=== PATIENT | male | born 1970 | race Caucasian/White ===

== ENCOUNTER 2023-08-09 16:32 | Inpatient (IN) ==
--- NOTE | 2023-08-09 17:09 | Emergency Department Note ---
Impression & Plan Hepatic cirrhosis, Abdominal ascites, Anemia, UGIB (upper gastrointestinal bleed), Thrombocytopenia, Hyperglycemia, Hypoxia ED Provider Note NAME: FRANKI CORTES AGE: 53 SEX: M : 1970 ARRIVES VIA: Walk-In INFORMANT: Patient, ED PROVIDER(S): Shawn Simmons MD CHIEF COMPLAINT: Abdominal fullness, alcohol abuse MEDICAL DECISION MAKING: Patient presented due to concern for worsening abdominal fullness and difficulty with breathing. IV was established and blood work was obtained. Reports ultrasound was performed which showed likely ascites in the right lower abdomen. Patient's blood work shows a normal white count with anemia and thrombocytopenia likely secondary to the patient's chronic alcohol use and liver dysfunction. Patient has had no stools given the patient's history of alcohol abuse was ordered PPI bolus and drip. The patient does have a bilirubin of 2.3 with a glucose of 456. Ammonia normal. AST 108. Patient's chest x-ray does not show overt pulmonary edema but is hypoxic. This may be due to abdominal fullness. I did speak with the on-call hospital service Dr. Chambers and the patient was admitted to the medicine service. Critical Care: I have personally spent 35 minutes of critical care time in direct management of this patient. This includes bedside care, interpretation of diagnostic studies, and testing, discussion with consultants, patient, and family members, and other require inpatient management activities. This 35 minutes is in excess of all separately billable procedures. Procedures: [id number] ultrasound performed by myself Indication: Evaluate ascites Verbal consent was obtained from the patient and the patient was evaluated with a curvilinear probe it did show evidence of fluid in the right lower quadrant. Impression: Ascites present Critical Care: I have personally spent 35 minutes of critical care time in direct management of this patient. This includes bedside care, interpretation of diagnostic studies, and testing, discussion with consultants, patient, and family members, and other require inpatient management activities. This 35 minutes is in excess of all separately billable procedures. Discussion w/ other healthcare providers: Dr. Chambers inpatient medicine service Prior /Outside records reviewed: I reviewed a primary care visit from August 07, 2023 from Amina shea. No history of GERD CHF fatty liver alcoholic cardiomyopathy jaundice patient was referred to [facility] [address] at that time. Reportedly patient drinks 10 to 12% of all liquor drinks per night send dark tarry stools. I reviewed an EGD from Dr. Riley from April 28, 2022. Patient did have benign- appearing esophageal stenosis which was dilated gastritis biopsied and normal examined duodenum. Differential diagnosis: Pulmonary edema, ascites, pleural effusions, pneumonia, pneumonitis, cirrhosis, hepatic dysfunction among others were considered. Diagnostics, as interpreted by me: ECG: Normal sinus rhythm, rate of 70, left axis deviation, T wave inversion lead III no ST elevations. Cardiac monitoring: An order was placed for continuous cardiac monitoring. The monitor shows a rate of 75 with sinus rhythm. Patient was placed on pulse oximetry Medical decision rules: none Imaging studies: I informally interpreted the patient's chest x-ray does not show obvious pneumonia or pneumothorax with formal report to follow. HPI: Patient presents as a referral for liver dysfunction. The patient was reportedly seen by his PCP on Thursday and was referred at that time but did not come until today. Patient does have a known history of alcohol abuse and states that he made a drink every day but does drink most days of the week typically after work and may drink a 12 pack of malt liquor 8%. Patient does have a known history of alcohol liver disease. The patient has had dark stools as well as bright red blood per rectum. He has had occasional vomiting with associated bright red blood although scant in nature. Patient does not complain of any abdominal pain at this time. He does report feeling warm and chilled but no true fever at home. Patient does not take any blood thinning medications. The patient noticed the stool to be pasty dark and tarry. Patient denies any tobacco or drug use but did get addicted to pain pills in the past and was on Suboxone many years ago. Patient does follow with [facility]. PAST MEDICAL HISTORY: See Below PAST SURGICAL HISTORY: See Below SOCIAL HISTORY: See Below HOME MEDICATIONS: See Below ALLERGIES: See Below VITALS: See Below PHYSICAL EXAMINATION: GENERAL: NAD, non-toxic. EYE EXAM: Normal conjunctiva. PERRL, no anisocoria and EOM's grossly intact w/o pain. OROPHARYNX: Moist mucus membranes, grossly normal dentition. NECK: Trachea midline, no stridor. LUNGS: Clear to auscultation. Normal chest wall mechanics. HEART: NSR, no MRG. ABDOMEN: Abdomen full, non tender, no rebound or guarding. BACK: No CVA TTP. SKIN: No rashes and no bruising. UPPER EXTREMITIES: Upper extremities are grossly normal. LOWER EXTREMITIES: Grossly normal, no edema. NEURO EXAM: A&O x3, cranial nerves II-XII grossly intact, normal speech, moves all 4 extremities. Past Med/Surg History Medical History Borderline diabetic History of atrial fibrillation History of kidney stones GERD (gastroesophageal reflux disease) Hypothyroid Low testosterone in male Infected pacemaker Pacer removed August 201805/22 infected wires History of urinary tract infection Insomnia Hypertension Congestive heart failure (CHF) HX OF Alcoholic cardiomyopathy Admitted 04/2018 for ETOH withdrawal, acute pancreatitis, non-ischmeic CM with EF 15-20%- LifeVest monitoring 07/07/18 showed a fib with RVR with tachycardia-induced tachycardia. Repeat ECHO in 07/2018 shows EF of 32%>NOW PT STATES EF IS "NORMAL" 60/NO CARDS Surgical History [place] teeth removed S/P debridement (05/30/19) Left Chest Wound Debridement Dr. Pratt 05/30/19 Hx of hernia repair Hx of cystoscopy x2 History of cardiac cath ismael - 2019/NO STENTS Family History Father Alcohol abuse Heart disease Cardiac disorder Myocardial infarction, Onset Age: 60 Brother Cancer Mother Stroke Other No family history of adverse response to anesthesia Denies family history of Colon cancer Ovarian cancer Prostate cancer Breast cancer Social History Smoking Status: Never smoker Second Hand Exposure: No; Do You Dip or Chew Tobacco: No; Hx Alcohol Use: Yes Alcohol type: hard liquor Alcohol Intake Frequency: 4 or More x per/Week Hx Substance Use: No Preferred Language: Greek Communication Ability: Effective Visual Impairment: No Limitations Hearing Ability: Normal Hand Ironer Required: No Beliefs That Will Affect Care: None marital status: Current Living Situation: Spouse current occupational status: employed How many Children do You have: 2 Feels Safe at Home: Yes Childhood Exposure to Second-Hand Smoke: Yes Diet: regular Diet Comment: regular caffeine: Yes during the past year weight has: remained stable Dental Care, Regularly: No Physical Activity Frequency: 3-4 Times per Week Seatbelt Use: always Sunscreen Use: No Assistive Devices: None Allergies Allergies Allergy/AdvReac Type Severity Reaction Status Date / Time No Known Allergies Allergy Verified 08/09/23 18:31 Home Meds Previous Rx's Medication Instructions Recorded levothyroxine 125 mcg tablet 125 mcg PO QAM #30 tabs 06/27/22 gabapentin 300 mg capsule 300 mg PO HS #30 caps 05/29/23 carvedilol 25 mg tablet (Coreg) 25 mg PO BID #180 tabs 08/05/23 lisinopril 5 mg tablet 5 mg PO QAM #30 tabs 08/05/23 blood sugar diagnostic (OneTouch #100 ea 08/12/23 Verio test strips) insulin glargine 100 unit/mL (3 15 unit (0.15 mL) subcut PM 08/12/23 mL) subcutaneous pen (Lantus diabetes #15 mL Solostar U-100 Insulin) lancets 33 gauge (OneTouch Delica #100 ea 08/12/23 Plus Lancet) pen needle, diabetic 32 gauge x #1,200 ea 08/12/23 5/32" Results & Data (ED) Vital Signs Vital Signs - 24 hr 08/09/23 16:35 08/09/23 17:16 08/09/23 17:32 Temperature 36.8 C Temperature Source Temporal Artery Scan Pulse Rate 75 69 Respiratory Rate 15 Respiratory Effort / Characteristics Non-Labored Spontaneous Respiratory Depth Normal Blood Pressure 126/78 Blood Pressure Mean 94 Pulse Oximetry 94 87 L Oxygen Delivery Method Room Air Nasal Cannula Oxygen Flow Rate 0 Sepsis Recent Fever Within 48 Hours No Sepsis New/Unexplained Change in Mental Status No Sepsis Action Taken by Nursing No Action Required Oxygen Flow Rate - Titration 2 Pulse Oximetry Post Tiitration 95 Home Medications Current Medication List: was personally reviewed by me Laboratory Data Attestation: I reviewed the patient's lab results. 08/12/23 04:50 08/12/23 04:50 Lab Results 08/09/23 08/09/23 08/09/23 Range/Units 18:36 19:15 19:40 WBC 8.90 (4.8-10.8) K/ul RBC 3.40 L (4.70-6.10) M/uL Hgb 12.1 L (14.0-18.0) g/dl Hct 34.6 L (42.0-52.0) % MCV 101.8 H (80.0-100.0) fL MCH 35.6 H (25.0-34.0) pg MCHC 35.0 (32.0-36.0) g/dL RDW Std Deviation 57.1 H (36.4-46.3) fL RDW Coeff of Uvaldo 15.3 H (11.5-14.5) % Plt Count 114 L (130-400) K/uL MPV 10.9 (9.4-12.4) fL Immature Gran % (Auto) 0.3 % Neut % (Auto) 60.5 % Lymph % (Auto) 23.3 % Gaines % (Auto) 9.6 % Eos % (Auto) 4.6 % Baso % (Auto) 1.7 % Neut # (Auto) 5.39 (1.40-6.50) K/uL Lymph # (Auto) 2.07 (1.20-3.40) K/uL Gaines # (Auto) 0.85 H (0.11-0.59) K/uL Eos # (Auto) 0.41 (0.00-0.50) K/uL Baso # (Auto) 0.15 (0.00-0.20) K/uL Immature Gran # (Auto) 0.03 (0.01-0.20) K/uL PT Cancelled INR Cancelled APTT Cancelled PTT Ratio Cancelled Sodium 135 L (136-145) mmol/L Potassium 4.3 (3.5-5.1) mmol/L Chloride 101 (98-107) mmol/L Carbon Dioxide 25 (21-32) mmol/L Anion Gap 9 (3-11) BUN 6 (6-23) mg/dl Creatinine 0.78 (0.6-1.4) mg/dl Est Cr Clr Drug Dosing 128.8 ml/min Est GFR ( Amer) 118.6 ml/min Est GFR (Non-Af Amer) 102.3 ml/min BUN/Creatinine Ratio 7.7 L (10-20) Glucose 456 H* (70-99(Fasting)) mg/dl Calcium 8.3 L (8.6-10.3) mg/dl Magnesium 1.8 (1.7-2.4) mg/dl Total Bilirubin 2.3 H (0.2-1.0) mg/dl AST 108 H (13-39) U/L ALT 36 (7-52) U/L Alkaline Phosphatase 132 H (34-104) U/L Ammonia 41.0 (18-72) umol/L Troponin I High Sens 17.0 (0-20) pg/ml Total Protein 8.4 H (6.0-8.3) gm/dl Albumin 3.3 L (3.4-5.0) gm/dl Globulin 5.1 H (2.5-4.0) gm/dl Albumin/Globulin Ratio 0.6 L (0.9-2) TSH 4.565 H (0.300-4.500) uIu/ml Free T4 0.83 (0.61-1.60) ng/dl Urine Color Yellow Urine Appearance Clear (Clear) Urine pH 6.5 (4.5-7.5) Ur Specific Gridley 1.034 H (1.000-1.030) Urine Protein Negative (Negative) Urine Glucose (UA) 3+ H (Negative) Urine Ketones Negative (Negative) Urine Blood Negative (Negative) Urine Nitrite Negative (Negative) Urine Bilirubin Negative (Negative) Urine Urobilinogen Negative (Negative) Ur Leukocyte Esterase Negative (Negative) Adenovirus (PCR) (NotDetected) B. pertussis DNA (PCR) (NotDetected) B.parapertussis DNA PCR (NotDetected) C. pneumoniae DNA (PCR) (NotDetected) Coronavirus OC43 (PCR) (NotDetected) Coronavirus HKU1 (PCR) (NotDetected) Coronavirus 229E (PCR) (NotDetected) SARS-CoV-2 (PCR) (NotDetected) Coronavirus NL63 (PCR) (NotDetected) Human Metapneumovir PCR (NotDetected) Influenza Type A (PCR) (NotDetected) Influenza Type B (PCR) (NotDetected) M. pneumoniae (PCR) (NotDetected) Parainfluenza 1 (PCR) (NotDetected) Parainfluenza 2 (PCR) (NotDetected) Parainfluenza 3 (PCR) (NotDetected) Parainfluenza 4 (PCR) (NotDetected) RSV (PCR) (NotDetected) Entero/Rhino (PCR) (NotDetected) 08/09/23 08/09/23 Range/Units 19:42 20:10 WBC (4.8-10.8) K/ul RBC (4.70-6.10) M/uL Hgb (14.0-18.0) g/dl Hct (42.0-52.0) % MCV (80.0-100.0) fL MCH (25.0-34.0) pg MCHC (32.0-36.0) g/dL RDW Std Deviation (36.4-46.3) fL RDW Coeff of Uvaldo (11.5-14.5) % Plt Count (130-400) K/uL MPV (9.4-12.4) fL Immature Gran % (Auto) % Neut % (Auto) % Lymph % (Auto) % Gaines % (Auto) % Eos % (Auto) % Baso % (Auto) % Neut # (Auto) (1.40-6.50) K/uL Lymph # (Auto) (1.20-3.40) K/uL Gaines # (Auto) (0.11-0.59) K/uL Eos # (Auto) (0.00-0.50) K/uL Baso # (Auto) (0.00-0.20) K/uL Immature Gran # (Auto) (0.01-0.20) K/uL PT 15.1 H INR 1.4 H APTT 35 H PTT Ratio 1.2 Sodium (136-145) mmol/L Potassium (3.5-5.1) mmol/L Chloride (98-107) mmol/L Carbon Dioxide (21-32) mmol/L Anion Gap (3-11) BUN (6-23) mg/dl Creatinine (0.6-1.4) mg/dl Est Cr Clr Drug Dosing ml/min Est GFR ( Amer) ml/min Est GFR (Non-Af Amer) ml/min BUN/Creatinine Ratio (10-20) Glucose (70-99(Fasting)) mg/dl Calcium (8.6-10.3) mg/dl Magnesium (1.7-2.4) mg/dl Total Bilirubin (0.2-1.0) mg/dl AST (13-39) U/L ALT (7-52) U/L Alkaline Phosphatase (34-104) U/L Ammonia (18-72) umol/L Troponin I High Sens (0-20) pg/ml Total Protein (6.0-8.3) gm/dl Albumin (3.4-5.0) gm/dl Globulin (2.5-4.0) gm/dl Albumin/Globulin Ratio (0.9-2) TSH (0.300-4.500) uIu/ml Free T4 (0.61-1.60) ng/dl Urine Color Urine Appearance (Clear) Urine pH (4.5-7.5) Ur Specific Gridley (1.000-1.030) Urine Protein (Negative) Urine Glucose (UA) (Negative) Urine Ketones (Negative) Urine Blood (Negative) Urine Nitrite (Negative) Urine Bilirubin (Negative) Urine Urobilinogen (Negative) Ur Leukocyte Esterase (Negative) Adenovirus (PCR) Not Detected (NotDetected) B. pertussis DNA (PCR) Not Detected (NotDetected) B.parapertussis DNA PCR Not Detected (NotDetected) C. pneumoniae DNA (PCR) Not Detected (NotDetected) Coronavirus OC43 (PCR) Not Detected (NotDetected) Coronavirus HKU1 (PCR) Not Detected (NotDetected) Coronavirus 229E (PCR) Not Detected (NotDetected) SARS-CoV-2 (PCR) Not Detected (NotDetected) Coronavirus NL63 (PCR) Not Detected (NotDetected) Human Metapneumovir PCR Not Detected (NotDetected) Influenza Type A (PCR) Not Detected (NotDetected) Influenza Type B (PCR) Not Detected (NotDetected) M. pneumoniae (PCR) Not Detected (NotDetected) Parainfluenza 1 (PCR) Not Detected (NotDetected) Parainfluenza 2 (PCR) Not Detected (NotDetected) Parainfluenza 3 (PCR) Not Detected (NotDetected) Parainfluenza 4 (PCR) Not Detected (NotDetected) RSV (PCR) Not Detected (NotDetected) Entero/Rhino (PCR) Not Detected (NotDetected) Administered Medications Discontinued Medications Carvedilol (Carvedilol 25 Mg Tab) 25 mg PO BID TOM Stop: 09/09/23 20:59 Last Admin: 08/12/23 07:46 Dose: 25 mg Documented By: Admin: 08/11/23 21:09 Dose: 25 mg Documented By: [id number] Admin: 08/11/23 08:22 Dose: 25 mg Documented By: Admin: 08/10/23 20:11 Dose: 25 mg Documented By: MOLLY Gabapentin (Gabapentin 300 Mg Cap) 300 mg PO HS TOM Stop: 09/09/23 20:59 Last Admin: 08/11/23 21:09 Dose: 300 mg Documented By: [id number] Admin: 08/10/23 20:12 Dose: 300 mg Documented By: MOLLY Pantoprazole Sodium 80 mg/ (Dextrose) 120 mls @ 480 mls/hr IV NOW ONE Stop: 08/09/23 18:25 Last Infusion: 08/09/23 20:53 Dose: Infused Documented By: Admin: 08/09/23 20:35 Dose: 480 mls/hr Documented By: SUBHA Pantoprazole Sodium 40 mg/ (Dextrose) 100 mls @ 20 mls/hr IV Q5H TOM Stop: 09/08/23 18:29 Last Infusion: 08/11/23 12:26 Dose: Infused Documented By: Admin: 08/11/23 12:10 Dose: 8 mg/hr, 20 mls/hr Documented By: Infusion: 08/11/23 12:10 Dose: Infused Documented By: Admin: 08/11/23 07:16 Dose: 8 mg/hr, 20 mls/hr Documented By: Infusion: 08/11/23 07:16 Dose: Infused Documented By: Admin: 08/11/23 02:24 Dose: 8 mg/hr, 20 mls/hr Documented By: Infusion: 08/11/23 02:24 Dose: Infused Documented By: Admin: 08/10/23 21:31 Dose: 8 mg/hr, 20 mls/hr Documented By: Infusion: 08/10/23 21:31 Dose: Infused Documented By: Infusion: 08/10/23 17:38 Dose: 0 mg/hr, 0 mls/hr Documented By: Admin: 08/10/23 12:55 Dose: 8 mg/hr, 20 mls/hr Documented By: Infusion: 08/10/23 12:55 Dose: Infused Documented By: Admin: 08/10/23 12:34 Dose: 8 mg/hr, 20 mls/hr Documented By: Infusion: 08/10/23 12:34 Dose: Infused Documented By: Admin: 08/10/23 08:54 Dose: 8 mg/hr, 20 mls/hr Documented By: Infusion: 08/10/23 08:04 Dose: Infused Documented By: Admin: 08/10/23 03:04 Dose: 8 mg/hr, 20 mls/hr Documented By: Infusion: 08/10/23 02:53 Dose: Infused Documented By: Infusion: 08/09/23 23:59 Dose: 8 mg/hr, 20 mls/hr Documented By: Infusion: 08/09/23 23:13 Dose: 0 mg/hr, 0 mls/hr Documented By: Admin: 08/09/23 21:06 Dose: 8 mg/hr, 20 mls/hr Documented By: ALEKSANDER Phytonadione 5 mg/ Dextrose 50.5 mls @ 101 mls/hr IV ONE ONE Stop: 08/09/23 23:14 Last Infusion: 08/10/23 00:00 Dose: Infused Documented By: Admin: 08/09/23 23:18 Dose: 101 mls/hr Documented By: MONICA Potassium Chloride/Sodium Chloride (Normal Saline W/20 Meq Kcl) 20 meq in 1,000 mls @ 80 mls/hr IV .[id number] TOM; Protocol Stop: 08/10/23 14:14 Last Infusion: 08/10/23 15:32 Dose: Infused Documented By: Admin: 08/10/23 03:00 Dose: 80 mls/hr Documented By: MOLLY Lorazepam 1 mg/ Syringe 1 mls @ 2 mls/min IV UD PRN; Protocol PRN Reason: EtOH Withdrawal AWSS Score 6,7 Stop: 09/09/23 05:58 Last Admin: 08/12/23 09:25 Dose: 2 mls/min Documented By: Admin: 08/11/23 21:36 Dose: 2 mls/min Documented By: [id number] Admin: 08/11/23 15:38 Dose: 2 mls/min Documented By: Admin: 08/10/23 21:29 Dose: 2 mls/min Documented By: Admin: 08/10/23 17:13 Dose: 2 mls/min Documented By: Admin: 08/10/23 12:34 Dose: 2 mls/min Documented By: Admin: 08/10/23 08:57 Dose: 2 mls/min Documented By: DUNG Thiamine HCl 100 mg/ Syringe 10 mls @ 2 mls/min IV QAM TOM Stop: 09/09/23 08:59 Last Admin: 08/12/23 09:25 Dose: 2 mls/min Documented By: Admin: 08/11/23 08:10 Dose: 2 mls/min Documented By: Admin: 08/10/23 08:54 Dose: 2 mls/min Documented By: DUNG Folic Acid 1 mg/ Syringe 10 mls @ 5 mls/min IV QAM TOM Stop: 09/09/23 08:59 Last Admin: 08/12/23 07:46 Dose: 5 mls/min Documented By: Admin: 08/11/23 08:10 Dose: 5 mls/min Documented By: Admin: 08/10/23 08:54 Dose: 5 mls/min Documented By: DUNG Magnesium Sulfate/Dextrose (Magnesium Sulfate / D5w) 1 gm in 100 mls @ 50 mls/hr IV Q2H TOM Stop: 08/10/23 21:44 Last Infusion: 08/10/23 21:52 Dose: Infused Documented By: Admin: 08/10/23 19:49 Dose: 50 mls/hr Documented By: Infusion: 08/10/23 19:44 Dose: Infused Documented By: Admin: 08/10/23 17:44 Dose: 50 mls/hr Documented By: DUNG Ibuprofen (Ibuprofen 200 Mg Tab) 400 mg PO NOW ONE Stop: 08/10/23 03:01 Last Admin: 08/10/23 02:59 Dose: 400 mg Documented By: MOLLY Insulin Aspart (Insulin Aspart Per Unit Charge) 0 units SC Q6 TOM Stop: 09/09/23 05:59 Last Admin: 08/10/23 12:34 Dose: 2 units Documented By: DUNG Co-signed By: SANDY Admin: 08/10/23 06:07 Dose: 3 units Documented By: MOLLY Co-signed By: LEE Insulin Aspart (Insulin Aspart Per Unit Charge) 0 units SC [facility] Stop: 09/09/23 16:29 Last Admin: 08/12/23 09:25 Dose: 3 units Documented By: GENARO Co-signed By: DOV Admin: 08/11/23 21:08 Dose: 1 units Documented By: [id number] Co-signed By: [id number] Admin: 08/11/23 18:09 Dose: 1 units Documented By: LAILA Co-signed By: PAT Admin: 08/11/23 12:57 Dose: 2 units Documented By: LAILA Co-signed By: FARHAD Admin: 08/11/23 09:04 Dose: Not Given Documented By: Admin: 08/10/23 20:12 Dose: Not Given Documented By: Admin: 08/10/23 17:49 Dose: 1 units Documented By: DUNG Co-signed By: SANDY Insulin Glargine (Lantus Per Unit Charge) 10 units SC ONE ONE Stop: 08/10/23 09:31 Last Admin: 08/10/23 09:28 Dose: 10 units Documented By: DUNG Co-signed By: SANDY Levothyroxine Sodium (Levothyroxine Sodium 125 Mcg Tablet) 125 mcg PO [facility] Stop: 09/10/23 08:59 Last Admin: 08/12/23 07:46 Dose: 125 mcg Documented By: Admin: 08/11/23 08:22 Dose: 125 mcg Documented By: LAILA Lisinopril (Lisinopril 5 Mg Tab) 5 mg PO [facility] Stop: 09/10/23 08:59 Last Admin: 08/12/23 07:46 Dose: 5 mg Documented By: Admin: 08/11/23 08:22 Dose: 5 mg Documented By: LAILA Lorazepam (Lorazepam 1 Mg Tab) 2 mg PO NOW STA Stop: 08/11/23 09:28 Last Admin: 08/11/23 09:31 Dose: 2 mg Documented By: LAILA Ondansetron HCl (Ondansetron Inj 2 Mg/Ml 2 Ml Vial) 4 mg IV Q6H PRN PRN Reason: Nausea Stop: 09/09/23 01:42 Last Admin: 08/10/23 06:34 Dose: 4 mg Documented By: LL Pantoprazole Sodium (Pantoprazole 40 Mg Tab) 40 mg PO BID TOM Stop: 09/10/23 20:59 Last Admin: 08/12/23 07:46 Dose: 40 mg Documented By: Admin: 08/11/23 21:09 Dose: 40 mg Documented By: [id number] Discharge Plan Visit Data Chief Complaint: Referred by Doctor Stated Complaint: REFERRED BY LAWANDA FOR LIVER FAILURE ED Provider: Shawn Simmons Discharge Problem: Hepatic cirrhosis, Abdominal ascites, Anemia, UGIB (upper gastrointestinal bleed), Thrombocytopenia, Hyperglycemia, Hypoxia Patient Disposition: Admitted As Inpatient Discharge Instructions Interventions: ED Discharge Assessment Last Done: 08/10/23 01:12 Discharge Problem: Hepatic cirrhosis Qualifiers: Hepatic cirrhosis type: alcoholic cirrhosis Ascites presence: with ascites Q ualified Code(s): K70.31 - Alcoholic cirrhosis of liver with ascites Abdominal ascites Qualifiers: Ascites type: due to alcoholic cirrhosis Qualified Code(s): K70.31 - Alcoholic cirrhosis of liver with ascites Anemia Qualifiers: Anemia type: unspecified type Qualified Code(s): D64.9 - Anemia, unspecified
[2023-08-09] MEDS ORDERED: PANTOPRAZOLE BOLUS/DRIP IV STA (18:11)
--- NOTE | 2023-08-09 18:53 | XRay Report ---
XR chest 1V portable CLINICAL HISTORY: weakness COMPARISON STUDY: Chest radiograph March 17, 2021. FINDINGS: Lung volumes are normal. Lungs are clear. There is no pneumothorax or pleural effusion. The re is moderate enlargement of the cardiac silhouette. Mediastinal contours are normal. There is pulmo nary vascular congestion without overt pulmonary edema. IMPRESSION: Mild enlargement of the cardiac silhouette. Pulmonary vascular congestion without overt p ulmonary edema. ACT 112: Negative or not required by law. Electronically signed by: Kody Cordova M.D. 08/09/2023 6:51 PM
[2023-08-09 18:59] LABS: Basophils # (auto) 0.15 K/uL (0.00-0.20); Basophils % (auto) 1.7 %; Eosinophils # (auto) 0.41 K/uL (0.00-0.50); Eosinophils % (auto) 4.6 %; Hematocrit (blood only) 34.6 % (42.0-52.0); Hemoglobin 12.1 g/dl (14.0-18.0); Immature Granulocytes # (auto) 0.03 K/uL (0.01-0.20); Immature Granulocytes % (auto) 0.3 %; Lymphocytes # (auto) 2.07 K/uL (1.20-3.40); Lymphocytes % (auto) 23.3 %; Mean Corpuscular Hemoglobin 35.6 pg (25.0-34.0); Mean Corpuscular Volume 101.8 fL (80.0-100.0); Mean Platelet Volume 10.9 fL (9.4-12.4); Monocytes # (auto) 0.85 K/uL (0.11-0.59); Monocytes % (auto) 9.6 %; Neutrophils # (auto) 5.39 K/uL (1.40-6.50); Neutrophils % (auto) 60.5 %; Platelet Count 114 K/uL (130-400); RDW Coefficient of Variation 15.3 % (11.5-14.5); RDW Standard Deviation 57.1 fL (36.4-46.3)
[2023-08-09 19:19] LABS: Albumin Globulin Ratio 0.6 (0.9-2); Albumin Level 3.3 gm/dl (3.4-5.0); BUN Creatinine Ratio 7.7 (10-20); Bilirubin,Total 2.3 mg/dl (0.2-1.0); Calcium 8.3 mg/dl (8.6-10.3); Creatinine Clr Calc Pharmacy 128.8 ml/min; Est GFR (African American) 118.6 ml/min; Est GFR (Non-African American) 102.3 ml/min; Globulin 5.1 gm/dl (2.5-4.0); Magnesium 1.8 mg/dl (1.7-2.4); Potassium 4.3 mmol/L (3.5-5.1); Total Protein 8.4 gm/dl (6.0-8.3)
[2023-08-09 19:25] LABS: Thyroid Stimulating Hormone 4.565 uIu/ml (0.300-4.500)
[2023-08-09 19:55] LABS: Appearance Urine Clear (Clear); Bilirubin Urine Negative (Negative); Blood Urine Negative (Negative); Color Urine Yellow; Glucose Urine UA 3+ (Negative); Ketones Urine Negative (Negative); Leukocyte Esterase Urine Negative (Negative); Nitrite Urine Negative (Negative); Protein Urine Negative (Negative); Specific Gravity Urine 1.034 (1.000-1.030); Urobilinogen Urine Negative (Negative); pH Urine 6.5 (4.5-7.5)
[2023-08-09 20:20] LABS: T4 Free Thyroxine 0.83 ng/dl (0.61-1.60)
[2023-08-09] MEDS: PANTOprazole 80 MG in DEXTROSE 5% 100 ML IV ONE (20:35)
[2023-08-09 20:47] LABS: Adenovirus PCR Not Detected (NotDetected); Bordetella parapertussis PCR Not Detected (NotDetected); Bordetella pertussis PCR Not Detected (NotDetected); Chlamydia pneumoniae PCR Not Detected (NotDetected); Coronavirus 229E PCR Not Detected (NotDetected); Coronavirus CoV-2 (COVID19)PCR Not Detected (NotDetected); Coronavirus HKU1 PCR Not Detected (NotDetected); Coronavirus NL63 PCR Not Detected (NotDetected); Coronavirus OC43PCR Not Detected (NotDetected); Human Metapneumovirus PCR Not Detected (NotDetected); Influenza A PCR Not Detected (NotDetected); Influenza B PCR Not Detected (NotDetected); Mycoplasma pneumoniae PCR Not Detected (NotDetected); Parainfluenza Virus 1 PCR Not Detected (NotDetected); Parainfluenza Virus 2 PCR Not Detected (NotDetected); Parainfluenza Virus 3 PCR Not Detected (NotDetected); Parainfluenza Virus 4 PCR Not Detected (NotDetected); Respiratory Syncytial VirusPCR Not Detected (NotDetected); Rhinovirus/Enterovirus PCR Not Detected (NotDetected)
[2023-08-09 20:54] LABS: INR 1.4 (0.9-1.1); Partial Thromboplastin Ratio 1.2; Partial Thromboplastin Time 35 Seconds (21-31); Prothrombin Time 15.1 Seconds (9.0-12.0)
[2023-08-09] MEDS: PANTOprazole 40 MG in DEXTROSE 5% MINI-B 100 ML IV SCH (21:06)
[2023-08-09] MEDS: PHYTONADIONE 5 MG in DEXTROSE 5% 50 ML IV ONE (23:18)
--- NOTE | 2023-08-10 00:01 | CT Scan Report ---
Exam(s): CT ABDOMEN + PELVIS Without Contrast EXAM: CT Abdomen and Pelvis Without Intravenous Contrast CLINICAL HISTORY: Reason for exam: abdominal distention, enlarged liver, alcohol abus. TECHNIQUE: Axial computed tomography images of the abdomen and pelvis without intravenous contrast. CTDI is 26.93 mGy and DLP is 1341.07 mGy-cm. Automated exposure control was utilized for the study. A dose lowering technique was utilized adhering to the principles of ALARA. COMPARISON: No relevant prior studies available. FINDINGS: Lung bases: Unremarkable. No mass. No consolidation. ABDOMEN: Liver: Hepatic cirrhosis. Hepatic steatosis. Mild abdominal ascites. Gallbladder and bile ducts: Unremarkable. No calcified stones. No ductal dilation. Pancreas: Unremarkable. No ductal dilation. Spleen: Unremarkable. No splenomegaly. Adrenals: Unremarkable. No mass. Kidneys and ureters: Unremarkable. No obstructing stones. No hydronephrosis. Stomach and bowel: Diverticulosis, without acute diverticulitis. No small bowel obstruction. No free intraperitoneal air. PELVIS: Appendix: Normal appendix. Bladder: Unremarkable. No stones. Reproductive: Unremarkable as visualized. ABDOMEN and PELVIS: Intraperitoneal space: See above. Bones/joints: Degenerative changes of the spine. No acute fracture. No dislocation. Soft tissues: Unremarkable. Vasculature: Atherosclerotic changes of the aorta. No abdominal aortic aneurysm. Lymph nodes: Unremarkable. No enlarged lymph nodes. IMPRESSION: 1. Hepatic cirrhosis. Hepatic steatosis. Mild abdominal ascites. 2. Diverticulosis, without acute diverticulitis. No small bowel obstruction. No free intraperitoneal air. Electronically signed by: Jayro Thompson MD 08/10/23 00:00 AM
[2023-08-10] MEDS ORDERED: GLUCOSE 10 TAB/TUBE PO PRN (01:17)
[2023-08-10] MEDS ORDERED: CARBOHYDRATES FOR HYPOGLYCEMIA PO PRN (01:17)
[2023-08-10] MEDS ORDERED: GLUCOSE 40% GEL 15 GM TUBE PO PRN (01:17)
[2023-08-10] MEDS ORDERED: DEXTROSE 50% 50 ML SYRINGE IV PRN (01:17)
[2023-08-10] MEDS ORDERED: GLUCAGON FOR INJ 1 MG VIAL SQ PRN (01:17)
[2023-08-10] MEDS: IBUPROFEN 200 MG TAB PO ONE (02:59)
[2023-08-10] MEDS: NSS + 20MEQ KCL 20 MEQ/1,000 ML BAG IV SCH (03:00)
--- NOTE | 2023-08-10 04:21 | History & Physical Report ---
Date of Service August 10, 2023 Assessment & Plan (1) GERD (gastroesophageal reflux disease): (2) Esophageal dysphagia: (3) Primary hypogonadism in male: (4) Fatty liver, alcoholic: (5) Alcoholic cardiomyopathy: (6) Hypertension: (7) Hypothyroid: (8) Hepatic cirrhosis: (9) Abdominal ascites: (10) History of atrial fibrillation: (11) GI bleed: (12) Anemia: Plan GI bleed/anemia- Patient with noted dark stools, likely upper GI source Hemoglobin 12.1 on admission, with base 14-15 Continue Protonix bolus/drip begun in the ED NPO Most recent EGD performed 04/28/[address] Alfonso Riley with benign-appearing esophageal stenosis that was dilated, otherwise gastritis, and normal examination to duodenum Consult GI DrEufemia Riley Follow serial laboratories Give vitamin K 5 mg IV to reverse mild coagulopathy with INR 1.4, and follow serially Alcohol abuse- Alcohol level added to ED labs, 242.7 Placed on AWSS protocol with IV Ativan Thiamine 100 mg IV every morning Folic acid 1 mg IV every morning NSS + KCl 20 mill equivalents at 80 MLS per hour Hypertension- Hold carvedilol and lisinopril, with normal heart rate and blood pressure at this time Liver cirrhosis/alcoholic fatty liver/mild abdominal ascites- AST 108, total bilirubin 2.3 Secondary to alcohol use Alcohol cessation counseling Follow examinations serially Coagulopathy- INR 1.4 Give vitamin K 5 mg IV due to current GI bleeding Hyperglycemia- Glucose 456 on admission labs, with follow-up fingerstick 297 Placed on Accu-Cheks with NovoLog SSI Check hemoglobin A1c Reported history of prediabetes and metabolic syndrome Hypothyroidism- Temporarily hold levothyroxine Admission and Anticipated Discharge Date Admission Date: August 09, 2023 History of Present Illness Chief Complaint: The patient reports that he had been seen by his outpatient provider 2 days ago, was told that he had enlarged liver, and was referred to the ED, and has showed up today 2 days later Primary Care Provider: BEHZAD Salazar The patient is a 53-year-old male with a past medical history including GERD, esophageal dysphagia, esophageal stenoses, primary hypogonadism, ED, metabolic syndrome, prediabetes, hyperlipidemia, alcoholic fatty liver, hypertension, CHF, alcoholic cardiomyopathy and alcoholism. He presents to the emergency department as a referral from his outpatient provider, whom referred him into the ED 2 days ago when he was seen there, but has shown up today for evaluation. He has no particular complaints today, reporting that he does drink alcohol daily, but not all day long. He did report that his stools have been more dark recently, and was a started on a Protonix bolus followed by drip by the ED. Allergies Allergy/AdvReac Type Severity Reaction Status Date / Time No Known Allergies Allergy Verified 08/09/23 18:31 Home Medications Medication Instructions Recorded Confirmed Type levothyroxine 125 mcg tablet 125 mcg PO QAM #30 tabs 06/27/22 08/09/23 Rx gabapentin 300 mg capsule 300 mg PO HS #30 caps 05/29/23 08/09/23 Rx carvedilol 25 mg tablet (Coreg) 25 mg PO BID #180 tabs 08/05/23 08/09/23 Rx lisinopril 5 mg tablet 5 mg PO QAM #30 tabs 08/05/23 08/09/23 Rx Past Med/Surg History Medical History (Updated 08/10/23 @ 05:55 by Ovidio Trinidad MD) Borderline diabetic History of atrial fibrillation History of kidney stones GERD (gastroesophageal reflux disease) Hypothyroid Low testosterone in male Infected pacemaker Pacer removed August 20182 infected wires History of urinary tract infection Insomnia Hypertension Congestive heart failure (CHF) HX OF Alcoholic cardiomyopathy Admitted 04/2018 for ETOH withdrawal, acute pancreatitis, non-ischmeic CM with EF 15-20%- LifeVest monitoring 07/07/18 showed a fib with RVR with tachycardia-induced tachycardia. Repeat ECHO in 07/2018 shows EF of 32%>NOW PT STATES EF IS "NORMAL" 60/NO CARDS Surgical History [place] teeth removed S/P debridement (05/30/19) Left Chest Wound Debridement Dr. Pratt 05/30/19 Hx of hernia repair Hx of cystoscopy x2 History of cardiac cath ismael - 2019/NO STENTS Family History Father Alcohol abuse Heart disease Cardiac disorder Myocardial infarction, Onset Age: 60 Brother Cancer Mother Stroke Other No family history of adverse response to anesthesia Denies family history of Colon cancer Ovarian cancer Prostate cancer Breast cancer Social History Smoking Status: Never smoker Second Hand Exposure: No; Do You Dip or Chew Tobacco: No; Hx Alcohol Use: Yes Alcohol type: hard liquor Alcohol Intake Frequency: 4 or Mo re x per/Week Hx Substance Use: No Preferred Language: Hungarian Communication Ability: Effective Visual Impairment: No Limitations Hearing Ability: Normal Rabble Furnace Tender Required: No Beliefs That Will Affect Care: None marital status: Current Living Situation: Spouse current occupational status: employed How many Children do You have: 2 Other Information That Helps Us Care for You: No Feels Safe at Home: Yes Safety Concerns: Feels Safe At This Time Childhood Exposure to Second-Hand Smoke: Yes Diet: regular Diet Comment: regular caffeine: Yes during the past year weight has: remained stable Dental Care, Regularly: No Physical Activity Frequency: 3-4 Times per Week Seatbelt Use: always Sunscreen Use: No Assistive Devices: Glasses Review of Systems Review of Systems: The patient denies chest pain, palpitations, shortness of breath, dyspnea on exertion, cough, lower extremity swelling, sore throat, fevers, chills, sweats, weight change, fatigue, nausea, vomiting, diarrhea , constipation, abdominal pain, pelvic pain, blood in urine, dysuria, urinary frequency or urgency, lightheadedness, dizziness, headache, memory loss, loss of consciousness, rash, imbalance, focal or generalized weakness, numbness or tingling in arms or legs, generalized arthralgias or myalgias, back or neck pain, or night sweats. The review of systems is otherwise negative other than for that already noted above, and at least 10 systems have been reviewed. Physical Exam Physical Exam: The patient is awake, alert and oriented 3, well developed and well nourished, normocephalic and atraumatic, lying in bed and in no acute distress. HEENT--PERRL, EOMI, mucous membranes and oropharynx normal Neck--supple. No JVD. No bruits. Thyroid normal, trachea midline, no adenopathy. Heart--normal S1 and S2. No murmurs, rubs or gallops. Lungs--clear bilaterally, no respiratory distress, no accessory muscle use. Abdomen--normal bowel sounds and soft. Nontender. Nondistended. Obese Extremities--No edema. Dermatologic--normal skin turgor, normal color, no abnormal lymph nodes, no rash. Neurologic--cranial nerves II through XII grossly intact. Rheumatologic--normal range of motion. Psychiatric--normal affect. Results & Data Results & Data Vital Signs (Past 12 Hours) Vital Signs Temp Pulse Pulse Resp BP BP Pulse Ox 08/10/23 01:56 73 08/10/23 01:56 08/10/23 01:56 36.6 C 69 18 135/78 96 08/10/23 00:20 68 22 107/63 97 08/10/23 00:11 82 18 96 08/09/23 23:46 96 08/09/23 22:30 76 16 08/09/23 22:00 78 23 97/58 L 93 08/09/23 21:32 69 08/09/23 21:20 81 24 96 08/09/23 21:04 72 18 125/80 97 08/09/23 21:00 84 14 08/09/23 19:45 68 15 105/56 L 91 08/09/23 19:01 85 18 136/95 08/09/23 17:32 69 08/09/23 17:16 87 L 08/09/23 16:35 36.8 C 75 15 126/78 94 O2 Del Method O2 Flow Rate 08/10/23 01:56 08/10/23 01:56 Nasal Cannula 2 08/10/23 01:56 Nasal Cannula 2 08/10/23 00:20 08/10/23 00:11 08/09/23 23:46 Room Air 08/09/23 22:30 08/09/23 22:00 Nasal Cannula 2 08/09/23 21:32 08/09/23 21:20 Nasal Cannula 2 08/09/23 21:04 Nasal Cannula 2 08/09/23 21:00 08/09/23 19:45 Room Air 08/09/23 19:01 08/09/23 17:32 08/09/23 17:16 Nasal Cannula 0 08/09/23 16:35 Room Air Laboratory Results Laboratory Results WBC 8.90 K/ul (4.8-10.8) 08/09/23 18:36 RBC 3.40 M/uL (4.70-6.10) L 08/09/23 18:36 Hgb 12.1 g/dl (14.0-18.0) L 08/09/23 18:36 Hct 34.6 % (42.0-52.0) L 08/09/23 18:36 MCV 101.8 fL (80.0-100.0) H 08/09/23 18:36 MCH 35.6 pg (25.0-34.0) H 08/09/23 18:36 MCHC 35.0 g/dL (32.0-36.0) 08/09/23 18:36 RDW Std Deviation 57.1 fL (36.4-46.3) H 08/09/23 18:36 RDW Coeff of Uval[place] 15.3 % (11.5-14.5) H 08/09/23 18:36 Plt Count 114 K/uL (130-400) L 08/09/23 18:36 MPV 10.9 fL (9.4-12.4) 08/09/23 18:36 Immature Gran % (Auto) 0.3 % 08/09/23 18:36 Neut % (Auto) 60.5 % 08/09/23 18:36 Lymph % (Auto) 23.3 % 08/09/23 18:36 [place] % (Auto) 9.6 % 08/09/23 18:36 Eos % (Auto) 4.6 % 08/09/23 18:36 Baso % (Auto) 1.7 % 08/09/23 18:36 Neut # (Auto) 5.39 K/uL (1.40-6.50) 08/09/23 18:36 Lymph # (Auto) 2.07 K/uL (1.20-3.40) 08/09/23 18:36 [place] # (Auto) 0.85 K/uL (0.11-0.59) H 08/09/23 18:36 Eos # (Auto) 0.41 K/uL (0.00-0.50) 08/09/23 18:36 Baso # (Auto) 0.15 K/uL (0.00-0.20) 08/09/23 18:36 Immature Gran # (Auto) 0.03 K/uL (0.01-0.20) 08/09/23 18:36 PT 15.1 Seconds (9.0-12.0) H 08/09/23 20:10 INR 1.4 (0.9-1.1) H 08/09/23 20:10 APTT 35 Seconds (21-31) H 08/09/23 20:10 PTT Ratio 1.2 08/09/23 20:10 Sodium 135 mmol/L (136-145) L 08/09/23 18:36 Potassium 4.3 mmol/L (3.5-5.1) 08/09/23 18:36 Chloride 101 mmol/L (98-107) 08/09/23 18:36 Carbon Dioxide 25 mmol/L (21-32) 08/09/23 18:36 Anion Gap 9 (3-11) 08/09/23 18:36 BUN 6 mg/dl (6-23) 08/09/23 18:36 Creatinine 0.78 mg/dl (0.6-1.4) 08/09/23 18:36 Est Cr Clr Drug Dosing 128.8 ml/min 08/09/23 18:36 Est GFR ( Amer) 118.6 ml/min 08/09/23 18:36 Est GFR (Non-Af Amer) 102.3 ml/min 08/09/23 18:36 BUN/Creatinine Ratio 7.7 (10-20) L 08/09/23 18:36 Glucose 456 mg/dl (70-99(Fasting)) H* 08/09/23 18:36 POC Glucose 302 mg/dl (70-99) H* 08/10/23 00:20 Calcium 8.3 mg/dl (8.6-10.3) L 08/09/23 18:36 Magnesium 1.8 mg/dl (1.7-2.4) 08/09/23 18:36 Total Bilirubin 2.3 mg/dl (0.2-1.0) H 08/09/23 18:36 AST 108 U/L (13-39) H 08/09/23 18:36 ALT 36 U/L (7-52) 08/09/23 18:36 Alkaline Phosphatase 132 U/L (34-104) H 08/09/23 18:36 Ammonia 41.0 umol/L (18-72) 08/09/23 19:15 Troponin I High Sens 17.0 pg/ml (0-20) 08/09/23 18:36 Total Protein 8.4 gm/dl (6.0-8.3) H 08/09/23 18:36 Albumin 3.3 gm/dl (3.4-5.0) L 08/09/23 18:36 Globulin 5.1 gm/dl (2.5-4.0) H 08/09/23 18:36 Albumin/Globulin Ratio 0.6 (0.9-2) L 08/09/23 18:36 TSH 4.565 uIu/ml (0.300-4.500) H 08/09/23 18:36 Free T4 0.83 ng/dl (0.61-1.60) 08/09/23 18:36 Urine Color Yellow 08/09/23 19:40 Urine Appearance Clear (Clear) 08/09/23 19:40 Urine pH 6.5 (4.5-7.5) 08/09/23 19:40 Ur Specific [place] 1.034 (1.000-1.030) H 08/09/23 19:40 Urine Protein Negative (Negative) 08/09/23 19:40 Urine Glucose (UA) 3+ (Negative) H 08/09/23 19:40 Urine Ketones Negative (Negative) 08/09/23 19:40 Urine Blood Negative (Negative) 08/09/23 19:40 Urine Nitrite Negative (Negative) 08/09/23 19:40 Urine Bilirubin Negative (Negative) 08/09/23 19:40 Urine Urobilinogen Negative (Negative) 08/09/23 19:40 Ur Leukocyte Esterase Negative (Negative) 08/09/23 19:40 Ethyl Alcohol mg/dL 242.7 mg/dl (<10.0) H 08/09/23 22:35 Adenovirus (PCR) Not Detected (NotDetected) 08/09/23 19:42 B. pertussis DNA (PCR) Not Detected (NotDetected) 08/09/23 19:42 B.parapertussis DNA PCR Not Detected (NotDetected) 08/09/23 19:42 C. pneumoniae DNA (PCR) Not Detected (NotDetected) 08/09/23 19:42 Coronavirus OC43 (PCR) Not Detected (NotDetected) 08/09/23 19:42 Coronavirus HKU1 (PCR) Not Detected (NotDetected) 08/09/23 19:42 Coronavirus 229E (PCR) Not Detected (NotDetected) 08/09/23 19:42 SARS-CoV-2 (PCR) Not Detected (NotDetected) 08/09/23 19:42 Coronavirus NL63 (PCR) Not Detected (NotDetected) 08/09/23 19:42 Human Metapneumovir PCR Not Detected (NotDetected) 08/09/23 19:42 Influenza Type A (PCR) Not Detected (NotDetected) 08/09/23 19:42 Influenza Type B (PCR) Not Detected (NotDetected) 08/09/23 19:42 M. pneumoniae (PCR) Not Detected (NotDetected) 08/09/23 19:42 Parainfluenza 1 (PCR) Not Detected (NotDetected) 08/09/23 19:42 Parainfluenza 2 (PCR) Not Detected (NotDetected) 08/09/23 19:42 Parainfluenza 3 (PCR) Not Detected (NotDetected) 08/09/23 19:42 Parainfluenza 4 (PCR) Not Detected (NotDetected) 08/09/23 19:42 RSV (PCR) Not Detected (NotDetected) 08/09/23 19:42 Entero/Rhino (PCR) Not Detected (NotDetected) 08/09/23 19:42 Impressions Chest X-Ray 08/09/23 17:37 XR chest 1V portable CLINICAL HISTORY: weakness COMPARISON STUDY: Chest radiograph March 17, 2021. FINDINGS: Lung volumes are normal. Lungs are clear. There is no pneumothorax or pleural effusion. There is moderate enlargement of the cardiac silhouette. Mediastinal contours are normal. There is pulmonary vascular congestion without overt pulmonary edema. IMPRESSION: Mild enlargement of the cardiac silhouette. Pulmonary vascular congestion without overt pulmonary edema. ACT 112: Negative or not required by law. Electronically signed by: Kody Cordova M.D. 08/09/2023 6:51 PM Abdomen/Pelvis CT 08/09/23 22:15 Exam(s): CT ABDOMEN + PELVIS Without Contrast EXAM: CT Abdomen and Pelvis Without Intravenous Contrast CLINICAL HISTORY: Reason for exam: abdominal distention, enlarged liver, alcohol abus. TECHNIQUE: Axial computed tomography images of the abdomen and pelvis without intravenous contrast. CTDI is 26.93 mGy and DLP is 1341.07 mGy-cm. Automated exposure control was utilized for the study. A dose lowering technique was utilized adhering to the principles of ALARA. COMPARISON: No relevant prior studies available. FINDINGS: Lung bases: Unremarkable. No mass. No consolidation. ABDOMEN: Liver: Hepatic cirrhosis. Hepatic steatosis. Mild abdominal ascites. Gallbladder and bile ducts: Unremarkable. No calcified stones. No ductal dilation. Pancreas: Unremarkable. No ductal dilation. Spleen: Unremarkable. No splenomegaly. Adrenals: Unremarkable. No mass. Kidneys and ureters: Unremarkable. No obstructing stones. No hydronephrosis. Stomach and bowel: Diverticulosis, without acute diverticulitis. No small bowel obstruction. No free intraperitoneal air. PELVIS: Appendix: Normal appendix. Bladder: Unremarkable. No stones. Reproductive: Unremarkable as visualized. ABDOMEN and PELVIS: Intraperitoneal space: See above. Bones/joints: Degenerative changes of the spine. No acute fracture. No dislocation. Soft tissues: Unremarkable. Vasculature: Atherosclerotic changes of the aorta. No abdominal aortic aneurysm. Lymph nodes: Unremarkable. No enlarged lymph nodes. IMPRESSION: 1. Hepatic cirrhosis. Hepatic steatosis. Mild abdominal ascites. 2. Diverticulosis, without acute diverticulitis. No small bowel obstruction. No free intraperitoneal air. Electronically signed by: Jayro Thompson MD 08/10/23 00:00 AM Code Status & VTE Plan Code Status Full code VTE Prophylaxis Plan VTE Prophylaxis will be ordered: Yes PG Care Time/CCT Total # of Minutes Spent Total Time Spent with Patient: Total time spent is greater than 50% in coordination of care (as documented) at patient's floor/unit and/or counseling patient: Coding Level of Care Code 97690 INT INP/OBS CARE 3/75MIN Diagnoses GERD (gastroesophageal reflux disease) K21.9 Esophageal dysphagia R13.19 Primary hypogonadism in male E29.1 Fatty liver, alcoholic K70.0 Alcoholic cardiomyopathy I42.6 Hypertension I10 Hypothyroid E03.9 Hepatic cirrhosis K74.60 Abdominal ascites R18.8 History of atrial fibrillation Z86.79 GI bleed K92.2 Anemia D64.9
[2023-08-10] MEDS ORDERED: LORazepam 2 MG in SYRINGE 1 ML IV PRN (05:59)
[2023-08-10] MEDS ORDERED: LORazepam 3 MG in SYRINGE 1.5 ML IV PRN (05:59)
[2023-08-10] MEDS ORDERED: Ativan IV Alcohol Withdrawal--Active Protocol IV PRN (05:59)
[2023-08-10] MEDS: INSULIN ASPART PER UNIT CHARGE SC SCH ×2 (06:07→17:49)
[2023-08-10] MEDS: ONDANSETRON INJ 2 MG/ML 2 ML VIAL IV PRN (06:34)
[2023-08-10 06:48] LABS: Albumin Globulin Ratio 0.7 (0.9-2); BUN Creatinine Ratio 6.9 (10-20); Bilirubin,Total 2.2 mg/dl (0.2-1.0); Creatinine Clr Calc Pharmacy 139.1 ml/min; Est GFR (African American) 122.6 ml/min; Est GFR (Non-African American) 105.8 ml/min; Globulin 4.5 gm/dl (2.5-4.0); Magnesium 1.6 mg/dl (1.7-2.4); Potassium 3.7 mmol/L (3.5-5.1); Total Protein 7.5 gm/dl (6.0-8.3)
[2023-08-10 06:50] LABS: Basophils # (auto) 0.12 K/uL (0.00-0.20); Basophils % (auto) 1.8 %; Eosinophils # (auto) 0.37 K/uL (0.00-0.50); Eosinophils % (auto) 5.4 %; Hemoglobin 11.4 g/dl (14.0-18.0); Immature Granulocytes # (auto) 0.02 K/uL (0.01-0.20); Immature Granulocytes % (auto) 0.3 %; Lymphocytes # (auto) 1.46 K/uL (1.20-3.40); Lymphocytes % (auto) 21.5 %; Mean Corpuscular Hemoglobin 34.4 pg (25.0-34.0); Mean Corpuscular Hgb Conc 33.5 g/dL (32.0-36.0); Mean Corpuscular Volume 102.7 fL (80.0-100.0); Mean Platelet Volume 10.7 fL (9.4-12.4); Monocytes # (auto) 0.69 K/uL (0.11-0.59); Monocytes % (auto) 10.1 %; Neutrophils # (auto) 4.14 K/uL (1.40-6.50); Neutrophils % (auto) 60.9 %; Platelet Count 102 K/uL (130-400); RDW Coefficient of Variation 15.4 % (11.5-14.5); RDW Standard Deviation 58.1 fL (36.4-46.3); Red Blood Count 3.31 M/uL (4.70-6.10)
[2023-08-10 07:47] LABS: Estimated Average Glucose 249 mg/dl; Hemoglobin A1C 10.3 % (4.5-5.6)
[2023-08-10] MEDS: FOLIC ACID 1 MG in SYRINGE 9.8 ML IV SCH (08:54)
[2023-08-10] MEDS: THIAMINE HCL 100 MG in SYRINGE 9 ML IV SCH (08:54)
[2023-08-10] MEDS: LORazepam 1 MG in SYRINGE 0.5 ML IV PRN (08:57)
[2023-08-10] MEDS: LANTUS PER UNIT CHARGE SC ONE (09:28)
--- NOTE | 2023-08-10 10:29 | Gastrointestinal Consultation ---
Date of Consultation August 10, 2023 Assessment & Plan (1) Anemia: -Continue to monitor H/H. -Consider anemia laboratory work-up as patient has a history of alcohol abuse. -Continue IV Protonix; patient was not taking Protonix 40 mg BID as previously recommended after his last EGD. No evidence of varices on last EGD and no evidence of portal hypertension on CT scan. No clinical concern for variceal bleed at present either. -Continue conservative management and can consider intervention if clinical condition worsens. Supervising Physician Co-Signing Physician Notes Agree with PEGGY Lott as above Interviewed and examined patient and agree with above Abd: Soft, NT, ND, +BS Continue current therapy and supportive care Patient was not taking PPI at home, and will need to continue this as outpatient Patient complained of early satiety, clearly has Diabetes based on presentation and HgbA1c, and will need outpatient therapy with tighter glucose control Consider Gastric emptying study as outpatient. History of Present Illness Reason for Consultation: GI bleed Attending Physician: Zack Gold MD History of Present Illness Patient is a 53 yo male with PMH of GERD, esophageal dysphagia, esophageal stenoses, primary hypogonadism, ED, metabolic syndrome, prediabetes, HLD, alcoholic fatty liver, HTN, CHF, alcoholic cardiomyopathy, & alcoholism. The patient was reportedly sent to the hospital by his outpatient PCP but he did not present at that time, instead waiting 2 days. Patient has a history of alcohol abuse. GI has been consulted for concerns of GI bleeding. The patient had a CT on 08/09/23 with findings of hepatic steatosis & cirrhosis along with mild abdominal ascites. He has a history of silent GERD with his last EGD in April 2022 showing esophageal stenosis. He is not compliant with PPIs at home and notes that several days ago he began seeing dark stools. H/H 11.0/32.0. He denies abdominal pain. He is presently on IV Protonix. T bili is 2.2, INR 1.4, AST 93, ALT 33. No overt GI bleeding since admission. No pertinent family history. Allergies Allergy/AdvReac Type Severity Reaction Status Date / Time No Known Allergies Allergy Verified 08/09/23 18:31 Home Medications Medication Instructions Recorded Confirmed Type levothyroxine 125 mcg tablet 125 mcg PO QAM #30 tabs 06/27/22 08/09/23 Rx gabapentin 300 mg capsule 300 mg PO HS #30 caps 05/29/23 08/09/23 Rx carvedilol 25 mg tablet (Coreg) 25 mg PO BID #180 tabs 08/05/23 08/09/23 Rx lisinopril 5 mg tablet 5 mg PO QAM #30 tabs 08/05/23 08/09/23 Rx Patient History Medical History Borderline diabetic History of atrial fibrillation History of kidney stones GERD (gastroesophageal reflux disease) Hypothyroid Low testosterone in male Infected pacemaker Pacer removed August 201805/22 infected wires History of urinary tract infection Insomnia Hypertension Congestive heart failure (CHF) HX OF Alcoholic cardiomyopathy Admitted 04/2018 for ETOH withdrawal, acute pancreatitis, non-ischmeic CM wi th EF 15-20%- LifeVest monitoring 07/07/18 showed a fib with RVR with tachycardia-induced tachycardia. Repeat ECHO in 07/2018 shows EF of 32%>NOW PT STATES EF IS "NORMAL" 60/NO CARDS Surgical History [place] teeth removed S/P debridement (05/30/19) Left Chest Wound Debridement Dr. Pratt 05/30/19 Hx of hernia repair Hx of cystoscopy x2 History of cardiac cath ismael - 2019/NO STENTS Family History Father Alcohol abuse Heart disease Cardiac disorder Myocardial infarction, Onset Age: 60 Brother Cancer Mother Stroke Other No family history of adverse response to anesthesia Denies family history of Colon cancer Ovarian cancer Prostate cancer Breast cancer Social History Smoking Status: Never smoker Second Hand Exposure: No; Do You Dip or Chew Tobacco: No; Hx Alcohol Use: Yes Alcohol type: hard liquor Alcohol Intake Frequency: 4 or More x per/Week Hx Substance Use: No Preferred Language: Belarusian Communication Ability: Effective Visual Impairment: No Limitations Hearing Ability: Normal Dyer Helper Required: No Beliefs That Will Affect Care: None marital status: Current Living Situation: Spouse current occupational status: employed How many Children do You have: 2 Other Information That Helps Us Care for You: No Feels Safe at Home: Yes Safety Concerns: Feels Safe At This Time Childhood Exposure to Second-Hand Smoke: Yes Diet: regular Diet Comment: regular caffeine: Yes during the past year weight has: remained stable Dental Care, Regularly: No Physical Activity Frequency: 3-4 Times per Week Seatbelt Use: always Sunscreen Use: No Assistive Devices: None Review of Systems Constitutional: no fever and no chills Respiratory: no cough and no dyspnea Cardiovascular: no chest pain Gastrointestinal: no abdominal pain Psychiatric: + substance abuse Physical Exam Constitutional: well developed Respiratory: normal respiratory effort Cardiovascular: Rate/Rhythm: regular rate Gastrointestinal (Abdomen): Inspection/Auscultation: normal bowel sounds Psychiatric: Orientation: alert and oriented x 3 Results & Data Vital Signs (Past 12 Hours) Vital Signs Temp Pulse Pulse Resp BP BP BP 08/10/23 08:16 36.8 C 75 18 135/67 08/10/23 07:55 78 08/10/23 06:12 08/10/23 01:56 73 08/10/23 01:56 08/10/23 01:56 36.6 C 69 18 135/78 08/10/23 00:20 68 22 107/63 08/10/23 00:11 82 18 08/09/23 23:46 08/09/23 22:30 76 16 Pulse Ox O2 Del Method O2 Flow Rate 08/10/23 08:16 96 Room Air 08/10/23 07:55 08/10/23 06:12 94 Room Air 08/10/23 01:56 08/10/23 01:56 Nasal Cannula 2 08/10/23 01:56 96 Nasal Cannula 2 08/10/23 00:20 97 08/10/23 00:11 96 08/09/23 23:46 96 Room Air 08/09/23 22:30 PG Care Time/CCT Total # of Minutes Spent Total Time Spent with Patient: Total time spent is greater than 50% in coordination of care (as documented) at patient's floor/unit and/or counseling patient: Coding Level of Care Code 19868 IN/OBS CONSULT LVL 4,60M Diagnoses Anemia D64.9
--- NOTE | 2023-08-10 10:47 | Electrocardiogram Report ---
Test Reason : Blood Pressure : / mmHG Vent. Rate : 070 BPM Atrial Rate : 070 BPM P-R Int : 186 ms QRS Dur : 110 ms QT Int : 450 ms P-R-T Axes : 054 -41 017 degrees QTc Int : 486 ms Normal sinus rhythm Left axis deviation Incomplete right bundle branch block Minimal voltage criteria for LVH, may be normal variant ( R in aVL ) Septal infarct , age undetermined Abnormal ECG When compared with ECG of 27-NOV-2019 16:24, Incomplete right bundle branch block is now Present Septal infarct is now Present Confirmed by Francisco J Carballo ([id number]) on 08/10/2023 10:47:14 AM Referred By: REFERRED SELF Confirmed By:Francisco J Carballo
[2023-08-10] MEDS ORDERED: Nursing to Pharmacy Communication SCH (12:45)
[2023-08-10 16:58] LABS: Hematocrit (blood only) 33.7 % (42.0-52.0); Hemoglobin 11.2 g/dl (14.0-18.0)
[2023-08-10] MEDS: MAGNESIUM SULFATE / D5W 1 GM/100 ML BAG IV SCH (17:44)
[2023-08-10] MEDS: carvediloL 25 MG TAB PO SCH (20:11)
[2023-08-10] MEDS: GABAPENTIN 300 MG CAP PO SCH (20:12)
[2023-08-10 22:47] LABS: Hemoglobin 11.5 g/dl (14.0-18.0)
[2023-08-11 06:22] LABS: Basophils # (auto) 0.06 K/uL (0.00-0.20); Basophils % (auto) 1.1 %; Eosinophils # (auto) 0.23 K/uL (0.00-0.50); Eosinophils % (auto) 4.2 %; Hematocrit (blood only) 34.7 % (42.0-52.0); Hemoglobin 11.4 g/dl (14.0-18.0); Immature Granulocytes # (auto) 0.02 K/uL (0.01-0.20); Immature Granulocytes % (auto) 0.4 %; Lymphocytes # (auto) 1.09 K/uL (1.20-3.40); Lymphocytes % (auto) 19.9 %; Mean Corpuscular Hemoglobin 34.3 pg (25.0-34.0); Mean Corpuscular Hgb Conc 32.9 g/dL (32.0-36.0); Mean Corpuscular Volume 104.5 fL (80.0-100.0); Mean Platelet Volume 10.3 fL (9.4-12.4); Monocytes # (auto) 0.53 K/uL (0.11-0.59); Monocytes % (auto) 9.7 %; Neutrophils # (auto) 3.56 K/uL (1.40-6.50); Neutrophils % (auto) 64.7 %; Platelet Count 78 K/uL (130-400); RDW Coefficient of Variation 15.4 % (11.5-14.5); Red Blood Count 3.32 M/uL (4.70-6.10); White Blood Count 5.49 K/ul (4.8-10.8)
[2023-08-11 06:30] LABS: Albumin Globulin Ratio 0.7 (0.9-2); Albumin Level 2.8 gm/dl (3.4-5.0); BUN Creatinine Ratio 9.4 (10-20); Bilirubin,Total 4.2 mg/dl (0.2-1.0); Calcium 7.9 mg/dl (8.6-10.3); Creatinine Clr Calc Pharmacy 119.2 ml/min; Est GFR (African American) 114.5 ml/min; Est GFR (Non-African American) 98.8 ml/min; Globulin 4.3 gm/dl (2.5-4.0); Magnesium 1.8 mg/dl (1.7-2.4); Potassium 3.9 mmol/L (3.5-5.1); Total Protein 7.1 gm/dl (6.0-8.3)
[2023-08-11] MEDS: LEVOTHYROXINE SODIUM 125 MCG TABLET PO SCH (08:22)
[2023-08-11] MEDS: lisinopril 5 MG TAB PO SCH (08:22)
[2023-08-11] MEDS: LORazepam 1 MG TAB PO STA (09:31)
--- NOTE | 2023-08-11 12:17 | Hospitalist Progress Note ---
Date of Service August 11, 2023 Assessment & Plan (1) GERD (gastroesophageal reflux disease): (2) Esophageal dysphagia: (3) Primary hypogonadism in male: (4) Fatty liver, alcoholic: (5) Alcoholic cardiomyopathy: (6) Hypertension: (7) Hypothyroid: (8) Hepatic cirrhosis: (9) Abdominal ascites: (10) History of atrial fibrillation: (11) GI bleed: (12) Anemia: Plan GI bleed/anemia- Patient with noted dark stools, likely upper GI source Hemoglobin still stable Currently on Protonix drip, will transition to p.o. Has been evaluated by gastroenterology, no plans for EGD for now Clear liquid diet, advance as tolerated Most recent EGD performed 04/28/[address] Hamilton Case with benign-appearing esophageal stenosis that was dilated, otherwise gastritis, and normal examination to duodenum Alcohol abuse- Alcohol level added to ED labs, 242.7 Placed on AWSS protocol with IV Ativan Thiamine 100 mg IV every morning Folic acid 1 mg IV every morning NSS + KCl 20 mill equivalents at 80 MLS per hour Patient feels that he is beginning to withdrawal, feels a little tremulous and a nxious. Hypertension- Hold carvedilol and lisinopril, with normal heart rate and blood pressure at this time Liver cirrhosis/alcoholic fatty liver/mild abdominal ascites- AST 108, total bilirubin 2.3 Secondary to alcohol use Alcohol cessation counseling Follow examinations serially Coagulopathy- INR 1.4 Give vitamin K 5 mg IV due to current GI bleeding Hyperglycemia- Glucose 456 on admission labs, with follow-up fingerstick 297 Placed on Accu-Cheks with NovoLog SSI Hemoglobin A1c of 12, showed patient is diabetic Will start patient on basal insulin, insulin sliding scale Is going to be discharged on insulin Will consult diabetes education Hypothyroidism- Temporarily hold levothyroxine Admission and Anticipated Discharge Date Admission Date: August 09, 2023 Subjective Patient seen and examined, states he is feeling a bit anxious and feels as if he is going to start withdrawing soon. Review of Systems Review of Systems: All systems reviewed are negative, apart from the ones contained in the history. Physical Exam Physical Exam: The patient is awake, alert and oriented 3, well developed and well nourished, normocephalic and atraumatic, lying in bed and in no acute distress. HEENT--PERRL, EOMI, mucous membranes and oropharynx mildly dry Neck--supple. No JVD. No bruits. Thyroid normal, trachea midline, no adenopathy. Heart--normal S1 and S2. No murmurs, rubs or gallops. Lungs--clear bilaterally, no respiratory distress, no accessory muscle use. Abdomen--normal bowel sounds and soft. Extremities--no cyanosis or clubbing. No edema. Dermatologic--normal skin turgor, normal color, no abnormal lymph nodes, no rash. Neurologic--cranial nerves II through XII grossly intact. Rheumatologic--normal range of motion. Psychiatric--normal affect. Results & Data Results & Data Vital Signs (Past 12 Hours) Vital Signs Temp Pulse Pulse Resp BP Pulse Ox O2 Del Method 08/11/23 07:08 98.2 F 67 18 127/68 94 Nasal Cannula 08/11/23 05:58 67 08/11/23 03:49 98.4 F 63 18 129/64 95 Nasal Cannula O2 Flow Rate 08/11/23 07:08 2 08/11/23 05:58 08/11/23 03:49 3 PG Care Time/CCT Total # of Minutes Spent Total Time Spent with Patient: Total time spent is greater than 50% in coordination of care (as documented) at patient's floor/unit and/or counseling patient: Coding Level of Care Code 48386 SUB INP/OBS CARE 2/35MIN Diagnoses GERD (gastroesophageal reflux disease) K21.9 Esophageal dysphagia R13.19 Primary hypogonadism in male E29.1 Fatty liver, alcoholic K70.0 Alcoholic cardiomyopathy I42.6 Hypertension I10 Hypothyroid E03.9 Hepatic cirrhosis K74.60 Abdominal ascites R18.8 History of atrial fibrillation Z86.79 GI bleed K92.2 Anemia D64.9 Time Spent (min) 35
[2023-08-11] MEDS: PANTOprazole 40 MG TAB PO SCH (21:09)
[2023-08-12 06:21] LABS: Basophils # (auto) 0.06 K/uL (0.00-0.20); Eosinophils # (auto) 0.25 K/uL (0.00-0.50); Eosinophils % (auto) 4.3 %; Hematocrit (blood only) 35.2 % (42.0-52.0); Hemoglobin 11.8 g/dl (14.0-18.0); Immature Granulocytes # (auto) 0.03 K/uL (0.01-0.20); Immature Granulocytes % (auto) 0.5 %; Lymphocytes % (auto) 20.4 %; Mean Corpuscular Hemoglobin 34.6 pg (25.0-34.0); Mean Corpuscular Hgb Conc 33.5 g/dL (32.0-36.0); Mean Corpuscular Volume 103.2 fL (80.0-100.0); Mean Platelet Volume 11.2 fL (9.4-12.4); Monocytes # (auto) 0.58 K/uL (0.11-0.59); Monocytes % (auto) 9.9 %; Neutrophils # (auto) 3.76 K/uL (1.40-6.50); Neutrophils % (auto) 63.9 %; Platelet Count 78 K/uL (130-400); RDW Coefficient of Variation 15.3 % (11.5-14.5); RDW Standard Deviation 57.9 fL (36.4-46.3); Red Blood Count 3.41 M/uL (4.70-6.10); White Blood Count 5.88 K/ul (4.8-10.8)
[2023-08-12 06:32] LABS: Albumin Globulin Ratio 0.6 (0.9-2); Albumin Level 2.9 gm/dl (3.4-5.0); BUN Creatinine Ratio 9.3 (10-20); Bilirubin,Total 3.8 mg/dl (0.2-1.0); Calcium 7.8 mg/dl (8.6-10.3); Creatinine Clr Calc Pharmacy 117.3 ml/min; Est GFR (African American) 113.9 ml/min; Est GFR (Non-African American) 98.3 ml/min; Globulin 4.6 gm/dl (2.5-4.0); Magnesium 1.7 mg/dl (1.7-2.4); Potassium 3.8 mmol/L (3.5-5.1); Total Protein 7.5 gm/dl (6.0-8.3)
--- NOTE | 2023-08-12 12:13 | Discharge Summary ---
Date of Service August 12, 2023 Admission HPI Per Admitting Provider The patient is a 53-year-old male with a past medical history including GERD, esophageal dysphagia, esophageal stenoses, primary hypogonadism, ED, metabolic syndrome, prediabetes, hyperlipidemia, alcoholic fatty liver, hypertension, CHF, alcoholic cardiomyopathy and alcoholism. He presents to the emergency department as a referral from his outpatient provider, whom referred him into the ED 2 days ago when he was seen there, but has shown up today for evaluation. He has no particular complaints today, reporting that he does drink alcohol daily, but not all day long. He did report that his stools have been more dark recently, and was a started on a Protonix bolus followed by drip by the ED. Principal Diagnosis GI bleed, alcohol abuse, newly diagnosed type 2 diabetes Discharge Exam The patient is awake, alert and oriented 3, well developed and well nourished, normocephalic and atraumatic, lying in bed and in no acute distress. HEENT--PERRL, EOMI, mucous membranes and oropharynx mildly dry Neck--supple. No JVD. No bruits. Thyroid normal, trachea midline, no adenopathy. Heart--normal S1 and S2. No murmurs, rubs or gallops. Lungs--clear bilaterally, no respiratory distress, no accessory muscle use. Abdomen--normal bowel sounds and soft. Extremities--no cyanosis or clubbing. No edema. Dermatologic--normal skin turgor, normal color, no abnormal lymph nodes, no rash. Neurologic--cranial nerves II through XII grossly intact. Rheumatologic--normal range of motion. Psychiatric--normal affect. Discharge Data Allergies Allergy/AdvReac Type Severity Reaction Status Date / Time No Known Allergies Allergy Verified 08/09/23 18:31 Consultations 08/09/23 21:03 ED Decision to Admit Stat 08/10/23 01:43 Consult Gastroenterology Routine Ordered Studies 08/09/23 22:15 CT Abdomen and Pelvis [CT abd pelvis wo con] Stat Hospital Course (1) GERD (gastroesophageal reflux disease): (2) Esophageal dysphagia: (3) Primary hypogonadism in male: (4) Fatty liver, alcoholic: (5) Alcoholic cardiomyopathy: (6) Hypertension: (7) Hypothyroid: (8) Hepatic cirrhosis: (9) Abdominal ascites: (10) History of atrial fibrillation: (11) GI bleed: (12) Anemia: (13) Type 2 diabetes mellitus: Plan GI bleed/anemia- Patient with noted dark stools, likely upper GI source Hemoglobin still stable Currently on Protonix drip, will transition to p.o. Has been evaluated by gastroenterology, no plans for EGD for now Clear liquid diet, advance as tolerated Most recent EGD performed 04/28/[address] Hamilton Case with benign-appearing esophageal stenosis that was dilated, otherwise gastritis, and normal examination to duodenum Alcohol abuse- Alcohol level added to ED labs, 242.7 Placed on AWSS protocol with IV Ativan Thiamine 100 mg IV every morning Folic acid 1 mg IV every morning NSS + KCl 20 mill equivalents at 80 MLS per hour Patient feels that he is beginning to withdrawal, feels a little tremulous and anxious. Hypertension- Hold carvedilol and lisinopril, with normal heart rate and blood pressure at t his time Liver cirrhosis/alcoholic fatty liver/mild abdominal ascites- AST 108, total bilirubin 2.3 Secondary to alcohol use Alcohol cessation counseling Follow examinations serially Coagulopathy- INR 1.4 Give vitamin K 5 mg IV due to current GI bleeding Newly diagnosed type 2 diabetes Glucose 456 on admission labs, with follow-up fingerstick 297 Placed on Accu-Cheks with NovoLog SSI Hemoglobin A1c of 10.3, showed patient is diabetic Patient was educated about his diabetes Will discharge him on glargine 15 units at night Was also asked to make appointment to follow-up with endocrinology. Hypothyroidism- Temporarily hold levothyroxine Total Time Total Time Spent Total Time Spent (In Minutes): 35 Discharge Plan Discharge Items Patient Disposition: Home - Self-Care Reason For Visit: GI BLEED, ALCOHOL ABUSE Discharge Diagnosis: GI bleed, alcohol abuse, newly diagnosed type 2 diabetes Activity: Resume your previous activity Non-emergency contact: Primary Care Provider, [employer] and Therapist Call non-emergency contact if: you have any medication questions Follow-up/Referrals: Teddy Duran CRNP [Primary Care Provider] - 08/19/23 8:20 am Diet: Regular Addtl Attending Provider Instructions: please make appointment to follow up with alcohol behavioral program, stop drinking alcohol. Follow up with your regular PCP. Also schedule an appointment to see an Home Visitor because your blood glucose is now in the range of Diabetes. You can follow up with Dr Carlitos Ulbrecht Pending Studies at Discharge: No Stand-Alone Forms: My [facility] [employer], Smoking Cessation Medications and DC Order Prescriptions: New insulin glargine [Lantus Solostar U-100 Insulin] 100 unit/mL (3 mL) insulin pen 15 unit subcut PM Qty: 15 0RF (DME) pen needle, diabetic 32 gauge x 5/32" needle See Rx Instructions .Route Qty: 1200 0RF Rx Instructions: test 3 times daily (DME) OneTouch Verio test strips Strip See Rx Instructions .Route Qty: 100 0RF Rx Instructions: test 3 times daily (DME) lancets [OneTouch Delica Plus Lancet] 33 gauge misc See Rx Instructions .Route Qty: 100 0RF Rx Instructions: test 3 times daily Continued gabapentin 300 mg capsule 300 mg PO HS Qty: 30 2RF carvedilol [Coreg] 25 mg tablet 25 mg PO BID Qty: 180 1RF lisinopril 5 mg tablet 5 mg PO QAM Qty: 30 2RF Patient Comments: PT STATES HAS NOT BEEN TAKING IT>PLANS TO RESTART MED levothyroxine 125 mcg tablet 125 mcg PO QAM Qty: 30 3RF Discharge Orders: Discharge Order (Routine); Ordered 08/12/23 Ordered By: Zack Gold Admission Data Admit Date/Time: 08/09/23 22:34 Attending Provider: Zack Gold Admit Provider: Ovidio Trinidad Primary Care Provider: Teddy Duran Other Providers: Alfonso Riley; Ovidio Trinidad Other Interventions: Discharge Summary Assessment (RN) Last Done: 08/12/23 11:51 Coding Level of Care Code 72797 INP/OBS DISCH >30 MIN Diagnoses GERD (gastroesophageal reflux disease) K21.9 Esophageal dysphagia R13.19 Primary hypogonadism in male E29.1 Fatty liver, alcoholic K70.0 Alcoholic cardiomyopathy I42.6 Hypertension I10 Hypothyroid E03.9 Hepatic cirrhosis K74.60 Abdominal ascites R18.8 History of atrial fibrillation Z86.79 GI bleed K92.2 Anemia D64.9 Type 2 diabetes mellitus E11.9 Time Spent (min) 35
== END 2023-08-12 12:15 | disposition home or self-care (01) | DRG 378 ==
LOC: ED 16:32 → SUATTDRO 22:34 → 2W 22:34

== ENCOUNTER 2024-01-13 16:08 | Inpatient (IN) ==
--- NOTE | 2024-01-13 16:57 | Emergency Department Note ---
Impression & Plan Hyperbilirubinemia, NATALY (acute kidney injury), Hypomagnesemia, Acute pancreatitis, Alcohol intoxication ED Provider Note HISTORY OF PRESENT ILLNESS: Patient is a 53-year-old male presenting with lab abnormalities and general malaise. Patient reports he has not been feeling well for a number of days. He went and saw his primary care provider and had laboratory workup done which showed that his bilirubin is high and his platelet count is low. Patient is an alcoholic and states he drinks two, 24 ounce cans of 8% malt liquor a day. He states he been doing this "for a very long time." He states his last bout of sobriety was last time he was admitted. He states he feels generally unwell. Denies any abdominal pain, nausea or vomiting. He reports his urine looks very concentrated. Does report he has been having diarrhea, but states this has been ongoing for a number of weeks. reports the patient's jaundice is also a chronic issue for him. No recent changes to medications. Patient does report that he drank his alcohol earlier today. No concerns for withdrawal symptoms at this time. ROS: as above PHYSICAL EXAM: Constitutional: Patient appears in no acute distress. HENT: Head: Normocephalic and atraumatic. Eyes: EOMI, PERRL. Scleral icterus Mouth/Throat: Mucous membranes moist. Neck: Trachea midline. Neck supple. Cardiovascular: RRR, No murmurs, rubs or gallops. Intact distal pulses. Pulmonary/Chest: No respiratory distress. Breath sounds clear and equal bilaterally. No wheezes or rales. Abdominal: Abdomen soft, no tenderness, rebound or guarding. Musculoskeletal: No edema, tenderness or deformity noted. Skin: Warm and dry. Jaundiced Psychiatric: Appropriate mood and affect for situation. Neurological: Alert and keenly responsive. CN II-XII grossly intact, moving all extremities equally and fully. MDM: - Vitals signs stable. - History obtained via patient. History as above. - Chronic conditions affecting care: CHF; alcoholic cardiomyopathy; hypothyroidism; DM-2; alcohol abuse; Afib; GERD - Differential diagnoses include, but are not limited to: cholangitis; choledocholithiasis; alcoholic hepatitis - Order placed for continuous cardiac monitoring. At this time, monitor showed rate of 70 bpm with normal sinus rhythm, per my interpretation. - External medical records reviewed. Primary care visit note dated 11/17/2023 was reviewed. At that time he had stated that he had not been drinking that day and had a bilirubin of 10.9 with laboratory workup. - EKG interpreted by myself showed normal sinus rhythm. Rate 83 bpm. QT 368. No acute ischemic changes. - Laboratory workup interpreted by myself showed normal WBC; anemia (Hgb 9.9); thrombocytopenia (plt 70); elevated INR (1.8); stable electrolytes; NATALY (Cr 1.47); hypomagnesemia (Mg 1.5); elevated AST (99); elevated total bilirubin (9.2); elevated lipase (138); elevated alcohol (237.4) - CXR negative for pneumonia, per my interpretation - US gallbladder negative for acute pathology. Noted to have gallbladder sludge stable since July 2023. - Viral respiratory panel negative. - Patient given banana bag in ER. - Hepatitis panel ordered. - Patient given 1g IV magnesium for electrolyte replacement. - MELD score 27. - Considered obtaining CT abdomen/pelvis, but patient has no reproducible abdominal pain on examination. - Discussion was had with protective services case worker about patient's case and need for admission - Hospitalist consulted for admission - Patient admitted to [facility] for further evaluation and management. ASSESSMENT AND PLAN: Diagnosis: Hyperbilirubinemia; NATALY; alcohol intoxication; hypomagnesemia; thrombocytopenia; pancreatitis Plan: Admit Past Med/Surg History Problem List (Updated 01/13/24 @ 19:22 by Suki Martinez MD) Alcohol intoxication (Acute) Acute pancreatitis (Acute) Hypomagnesemia (Acute) NATALY (acute kidney injury) (Acute) Hyperbilirubinemia (Acute) Olecranon bursitis, left elbow Insulin dependent type 2 diabetes mellitus Thrombocytopenia (Acute) UGIB (upper gastrointestinal bleed) (Acute) Anemia (Acute) Type 2 diabetes mellitus History of atrial fibrillation Abdominal ascites (Acute) Hepatic cirrhosis (Acute) GERD (gastroesophageal reflux disease) Esophageal dysphagia Primary hypogonadism in male Erectile dysfunction Obesity (BMI 30-39.9) Metabolic syndrome Hyperlipidemia Fatty liver, alcoholic Elevated ferritin Elevated liver function tests Hypothyroid Low testosterone in male Insomnia (Chronic) Hypertension (Chronic) Congestive heart failure (CHF) (Chronic) HX OF Alcoholic cardiomyopathy (Chronic) Admitted 04/2018 for ETOH withdrawal, acute pancreatitis, non-ischmeic CM with EF 15-20%- LifeVest monitoring 07/07/18 showed a fib with RVR with tachycardia-induced tachycardia. Repeat ECHO in 07/2018 shows EF of 32%>NOW PT STATES EF IS "NORMAL" 60/NO CARDS Medical History Borderline diabetic History of kidney stones Infected pacemaker History of urinary tract infection Surgical History [place] teeth removed S/P debridement (05/30/19) Hx of hernia repair Hx of cystoscopy History of cardiac cath Family History Father Alcohol abuse Heart disease Cardiac disorder Myocardial infarction, Onset Age: 60 Brother Cancer Mother Stroke Other No family history of adverse response to anesthesia Denies family history of Colon cancer Ovarian cancer Prostate cancer Breast cancer Social History Smoking Status: Never smoker Tobacco Type: Cigarettes Second Hand Exposure: No; Do You Dip or Chew Tobacco: No; Hx Alcohol Use: Yes Alcohol type: hard liquor Alcohol Intake Frequency: 4 or More x per/Week Hx Substance Use: No Preferred Language: Taiwanese Communication Ability: Effective Visual Impairment: No Limitations Hearing Ability: Normal Teacher Resource Required: No Beliefs That Will Affect Care: None marital status: Current Living Situation: Spouse current occupational status: employed How many Children do You have: 2 Feels Safe at Home: Yes Childhood Exposure to Second-Hand Smoke: Yes Diet: regular Diet Comment: regular caffeine: Yes during the past year weight has: remained stable Dental Care, Regularly: No Physical Activity Frequency: 3-4 Times per Week Seatbelt Use: always Sunscreen Use: No Assistive Devices: Glasses Allergies Allergies Allergy/AdvReac Type Severity Reaction Status Date / Time No Known Allergies Allergy Verified 11/17/23 10:49 Home Meds Home Medications Medication Instructions Recorded Confirmed gabapentin 300 mg capsule 300 mg PO HS PRN Other 10/12/23 01/13/24 Previous Rx's Medication Instructions Recorded carvedilol 25 mg tablet (Coreg) 25 mg PO BID #180 tabs 08/05/23 lancets 33 gauge (OneTouch Delica #100 ea 08/12/23 Plus Lancet) pen needle, diabetic 32 gauge x #1,200 ea 08/12/2332" pantoprazole 40 mg tablet,delayed 40 mg PO DAILY #90 tabs 08/19/23 release blood-glucose meter,continuous #1 ea 10/12/23 (FreeStyle Raegan 3 Gridley) blood-glucose sensor (FreeStyle #2 ea 10/12/23 Raegan 3 Sensor device) lisinopril 5 mg tablet 5 mg PO QAM #90 tabs 11/05/23 gabapentin 100 mg capsule 100 mg PO HS #30 caps 12/15/23 levothyroxine 137 mcg tablet 137 mcg PO QAM #30 tabs 12/15/23 blood sugar diagnostic (OneTouch #100 ea 01/07/24 Verio test strips) empagliflozin 10 mg tablet 10 mg PO DAILY #90 tabs 01/07/24 (Jardiance) Results & Data (ED) Vital Signs Vital Signs - 24 hr 01/13/24 16:26 01/13/24 16:42 01/13/24 16:44 Temperature 36.6 C Temperature Source Temporal Artery Scan Pulse Rate 88 75 83 Pulse Rate [Apical] Pulse Rhythm Regular Pulse Rhythm [Apical] Pulse Strength [Apical] Respiratory Rate 20 16 Respiratory Effort / Characteristics Non-Labored Spontaneous Respiratory Depth Normal Respiratory Pattern Regular Blood Pressure 106/64 Blood Pressure [Right Arm] Blood Pressure Mean 78 Blood Pressure Mean [Right Arm] Blood Pressure Position Lying Blood Pressure Position [Right Arm] Pulse Oximetry 96 97 Oxygen Delivery Method Room Air Room Air Oxygen Flow Rate Sepsis Recent Fever Within 48 Hours No Sepsis New/Unexplained Change in Mental Status No Sepsis Action Taken by Nursing No Action Required 01/13/24 16:59 01/13/24 17:56 01/13/24 19:54 Temperature Temperature Source Pulse Rate Pulse Rate [Apical] 84 69 71 Pulse Rhythm Pulse Rhythm [Apical] Regular Regular Pulse Strength [Apical] Normal Normal Normal Respiratory Rate 16 16 16 Respiratory Effort / Characteristics Non-Labored Spontaneous Non-Labored Spontaneous Non-Labored Spontaneous Respiratory Depth Normal Normal Normal Respiratory Pattern Regular Regular Regular Blood Pressure Blood Pressure [Right Arm] 117/75 109/64 Blood Pressure Mean Blood Pressure Mean [Right Arm] 89 79 Blood Pressure Position Blood Pressure Position [Right Arm] Sitting Sitting Lying Pulse Oximetry 97 94 87 L Oxygen Delivery Method Room Air Room Air Room Air Oxygen Flow Rate Sepsis Recent Fever Within 48 Hours Sepsis New/Unexplained Change in Mental Status Sepsis Action Taken by Nursing 01/13/24 19:55 Temperature Temperature Source Pulse Rate Pulse Rate [Apical] Pulse Rhythm Pulse Rhythm [Apical] Pulse Strength [Apical] Respiratory Rate Respiratory Effort / Characteristics Respiratory Depth Respiratory Pattern Blood Pressure Blood Pressure [Right Arm] 93/54 L Blood Pressure Mean Blood Pressure Mean [Right Arm] 67 Blood Pressure Position Blood Pressure Position [Right Arm] Lying Pulse Oximetry 93 Oxygen Delivery Method Nasal Cannula Oxygen Flow Rate 2 Sepsis Recent Fever Within 48 Hours Sepsis New/Unexplained Change in Mental Status Sepsis Action Taken by Nursing Laboratory Data 01/13/24 16:50 01/13/24 Unknown Lab Results 01/13/24 01/13/24 01/13/24 Range/Units 16:50 17:19 Unknown WBC 9.54 (4.8-10.8) K/ul RBC 2.51 L (4.70-6.10) M/uL Hgb 9.9 L (14.0-18.0) g/dl Hct 28.0 L (42.0-52.0) % MCV 111.6 H (80.0-100.0) fL MCH 39.4 H (25.0-34.0) pg MCHC 35.4 (32.0-36.0) g/dL RDW Std Deviation 72.8 H (36.4-46.3) fL RDW Coeff of Uvaldo 18.2 H (11.5-14.5) % Plt Count 70 L (130-400) K/uL MPV 11.1 (9.4-12.4) fL Immature Gran % (Auto) 1.6 % Neut % (Auto) 69.1 % Lymph % (Auto) 15.1 % Jasper % (Auto) 9.1 % Eos % (Auto) 4.1 % Baso % (Auto) 1.0 % Neut # (Auto) 6.59 H (1.40-6.50) K/uL Lymph # (Auto) 1.44 (1.20-3.40) K/uL Jasper # (Auto) 0.87 H (0.11-0.59) K/uL Eos # (Auto) 0.39 (0.00-0.50) K/uL Baso # (Auto) 0.10 (0.00-0.20) K/uL Immature Gran # (Auto) 0.15 (0.01-0.20) K/uL Platelet Estimate Decreased L (Normal) Polychromasia 1+ Macrocytosis Present Echinocytes 1+ PT 18.7 H (9.0-12.0) Seconds INR 1.8 H (0.9-1.1) Sodium 136 (136-145) mmol/L Potassium TNP 4.5 Chloride 107 (98-107) mmol/L Carbon Dioxide 21 (21-32) mmol/L Anion Gap 8 (3-11) BUN 9 (6-23) mg/dl Creatinine 1.47 H (0.6-1.4) mg/dl Est Cr Clr Drug Dosing Not Reportable Est GFR ( Amer) 61.8 ml/min Est GFR (Non-Af Amer) 53.3 ml/min BUN/Creatinine Ratio 6.1 L (10-20) Glucose 164 H (70-99(Fasting)) mg/dl Calcium 8.3 L (8.6-10.3) mg/dl Magnesium 1.5 L (1.7-2.4) mg/dl Total Bilirubin 9.2 H (0.2-1.0) mg/dl AST TNP 99 H ALT 30 (7-52) U/L Alkaline Phosphatase 110 H (34-104) U/L Troponin I High Sens 16.9 (0-20) pg/ml Total Protein 7.5 (6.0-8.3) gm/dl Albumin 2.6 L (3.4-5.0) gm/dl Globulin 4.9 H (2.5-4.0) gm/dl Albumin/Globulin Ratio 0.5 L (0.9-2) Lipase 138 H (11-82) U/L Ethyl Alcohol mg/dL 237.4 H (<10.0) mg/dl Adenovirus (PCR) Not Detected (NotDetected) B. pertussis DNA (PCR) Not Detected (NotDetected) B.parapertussis DNA PCR Not Detected (NotDetected) C. pneumoniae DNA (PCR) Not Detected (NotDetected) Coronavirus OC43 (PCR) Not Detected (NotDetected) Coronavirus HKU1 (PCR) Not Detected (NotDetected) Coronavirus 229E (PCR) Not Detected (NotDetected) SARS-CoV-2 (PCR) Not Detected (NotDetected) Coronavirus NL63 (PCR) Not Detected (NotDetected) Hep Bs Antigen Negative (Negative) Hepatitis C Antibody Negative (Negative) Human Metapneumovir PCR Not Detected (NotDetected) Influenza Type A (PCR) Not Detected (NotDetected) Influenza Type B (PCR) Not Detected (NotDetected) M. pneumoniae (PCR) Not Detected (NotDetected) Parainfluenza 1 (PCR) Not Detected (NotDetected) Parainfluenza 2 (PCR) Not Detected (NotDetected) Parainfluenza 3 (PCR) Not Detected (NotDetected) Parainfluenza 4 (PCR) Not Detected (NotDetected) RSV (PCR) Not Detected (NotDetected) Entero/Rhino (PCR) Not Detected (NotDetected) Administered Medications Multivitamins 10 ml/ Thiamine HCl 100 mg/ Folic Acid 1 mg/Sodium Chloride 1,011.2 mls @ 500 mls/hr IV .Q2H2M ONE Stop: 01/13/24 20:37 Last Admin: 01/13/24 19:19 Dose: 500 mls/hr Documented By: TYSHAWN Magnesium Sulfate/Dextrose (Magnesium Sulfate / D5w) 1 gm in 100 mls @ 50 mls/hr IV Q2H TOM Stop: 01/13/24 23:14 Last Admin: 01/13/24 19:46 Dose: 50 mls/hr Documented By: TYSHAWN Discontinued Medications Diazepam (Diazepam 5 Mg/Ml 10ml Vial) 10 mg IV NOW STA Stop: 01/13/24 19:34 Last Admin: 01/13/24 19:46 Dose: 10 mg Documented By: TYSHAWN Imaging Data Radiologist's Impression: Chest X-Ray 01/13/24 16:36 XR chest 1V portable HISTORY: 53 years-old Male illness acute shortness of breath COMPARISON: 08/09/2023 TECHNIQUE: AP view of the chest FINDINGS: Cardiac silhouette is mildly enlarged. The lungs are clear. No pneumothorax or pleural effusion. The bones appear intact. IMPRESSION: Cardiomegaly without acute process. ACT 112: Negative or not required by law. The above report was generated using voice recognition software. It may contain grammatical, syntax or spelling errors. Electronically signed by: Mino Lewis M.D. 01/13/2024 5:20 PM Gallbladder Ultrasound 01/13/24 17:01 ABDOMINAL ULTRASOUND, RIGHT UPPER QUADRANT HISTORY: Acutely elevated LFTs jaundice; elevated bilirubin. COMPARISON: CT 08/09/2023 FINDINGS: Pancreas: The pancreas is obscured by bowel gas. Liver: 22 cm in length parenchymal heterogeneity and increased echogenicity with marginal nodularity. No hepatic mass identified. Trace perihepatic ascites. Hepatopedal flow noted within the patent portal vein. Gallbladder: Distended and sludge-filled. No shadowing cholelithiasis. Gallbladder wall measures 3 mm. CBD: 5 mm. Right kidney: No hydronephrosis. IMPRESSION: 1. Distended sludge-filled gallbladder with borderline wall thickening is similar in appearance to the 08/09/2023 CT exam. 2. No cholelithiasis or biliary ductal dilation. 3. Hepatomegaly with cirrhosis and trace ascites redemonstrated. ACT 112: Negative or not required by law. Electronically signed by: Mino Lewis M.D. 01/13/2024 6:03 PM Discharge Plan Visit Data Chief Complaint: Referred by Doctor Stated Complaint: ABNORMAL BLOOD WORK ED Provider: Suki Martinez Discharge Problem: Hyperbilirubinemia, NATALY (acute kidney injury), Hypomagnesemia, Acute pancreatitis, Alcohol intoxication Forms Stand Alone Forms: My [employer] Prescriptions Prescriptions: No Action carvedilol [Coreg] 25 mg tablet 25 mg PO BID Qty: 180 1RF lisinopril 5 mg tablet 5 mg PO QAM Qty: 90 2RF Patient Comments: PT STATES HAS NOT BEEN TAKING IT>PLANS TO RESTART MED gabapentin 100 mg capsule 100 mg PO HS Qty: 30 2RF levothyroxine 137 mcg tablet 137 mcg PO QAM Qty: 30 3RF Jardiance 10 mg tablet 10 mg PO DAILY Qty: 90 3RF (DME) OneTouch Verio test strips Strip See Rx Instructions .Route Qty: 100 0RF Rx Instructions: test 3 times daily pantoprazole 40 mg tablet,delayed release (DR/EC) 40 mg PO DAILY Qty: 90 3RF gabapentin 300 mg capsule 300 mg PO HS PRN (Reason: Other) (DME) FreeStSidelineSwap Raegan 3 Sensor Device See Rx Instructions .Route Qty: 2 5RF Rx Instructions: Change every 14 days to monitor glucose levels (DME) FreeStyle Raegan 3 Gridley Misc See Rx Instructions .Route Qty: 1 0RF Rx Instructions: Use as directed to monitor glucose levels (DME) pen needle, diabetic 32 gauge x 5/32" needle See Rx Instructions .Route Qty: 1200 0RF Rx Instructions: test 3 times daily (DME) lancets [OneTouch Delica Plus Lancet] 33 gauge misc See Rx Instructions .Route Qty: 100 0RF Rx Instructions: test 3 times daily Referrals Referrals: Teddy Duran CRNP [Primary Care Provider] -
--- NOTE | 2024-01-13 17:21 | XRay Report ---
XR chest 1V portable HISTORY: 53 years-old Male illness acute shortness of breath COMPARISON: 08/09/2023 TECHNIQUE: AP view of the chest FINDINGS: Cardiac silhouette is mildly enlarged. The lungs are clear. No pneumothorax or pleural effusion. The bones appear intact. IMPRESSION: Cardiomegaly without acute process. ACT 112: Negative or not required by law. The above report was generated using voice recognition software. It may contain grammatical, syntax o r spelling errors. Electronically signed by: Mino Lewis M.D. 01/13/2024 5:20 PM
[2024-01-13 17:30] LABS: Echinocytes 1+; Eosinophils # (auto) 0.39 K/uL (0.00-0.50); Eosinophils % (auto) 4.1 %; Hemoglobin 9.9 g/dl (14.0-18.0); Immature Granulocytes # (auto) 0.15 K/uL (0.01-0.20); Immature Granulocytes % (auto) 1.6 %; Lymphocytes # (auto) 1.44 K/uL (1.20-3.40); Lymphocytes % (auto) 15.1 %; Macrocytosis Present; Mean Corpuscular Hemoglobin 39.4 pg (25.0-34.0); Mean Corpuscular Hgb Conc 35.4 g/dL (32.0-36.0); Mean Corpuscular Volume 111.6 fL (80.0-100.0); Mean Platelet Volume 11.1 fL (9.4-12.4); Monocytes # (auto) 0.87 K/uL (0.11-0.59); Monocytes % (auto) 9.1 %; Neutrophils # (auto) 6.59 K/uL (1.40-6.50); Neutrophils % (auto) 69.1 %; Platelet Count 70 K/uL (130-400); Platelet Estimate Decreased (Normal); Polychromasia 1+; RDW Coefficient of Variation 18.2 % (11.5-14.5); RDW Standard Deviation 72.8 fL (36.4-46.3); Red Blood Count 2.51 M/uL (4.70-6.10); White Blood Count 9.54 K/ul (4.8-10.8)
[2024-01-13 17:33] LABS: Alanine Aminotransferase 30 U/L (7-52); Albumin Globulin Ratio 0.5 (0.9-2); Albumin Level 2.6 gm/dl (3.4-5.0); Alkaline Phosphatase 110 U/L (34-104); Anion Gap 8 (3-11); BUN Creatinine Ratio 6.1 (10-20); Bilirubin,Total 9.2 mg/dl (0.2-1.0); Blood Urea Nitrogen 9 mg/dl (6-23); Calcium 8.3 mg/dl (8.6-10.3); Carbon Dioxide 21 mmol/L (21-32); Chloride 107 mmol/L (98-107); Est GFR (African American) 61.8 ml/min; Est GFR (Non-African American) 53.3 ml/min; Globulin 4.9 gm/dl (2.5-4.0); Glucose 164 mg/dl (70-99(Fasting)); Lipase 138 U/L (11-82); Magnesium 1.5 mg/dl (1.7-2.4); Sodium 136 mmol/L (136-145); Total Protein 7.5 gm/dl (6.0-8.3); Troponin I High Sensitivity 16.9 pg/ml (0-20)
[2024-01-13 17:35] LABS: INR 1.8 (0.9-1.1); Prothrombin Time 18.7 Seconds (9.0-12.0)
--- NOTE | 2024-01-13 18:04 | Ultrasound Report ---
ABDOMINAL ULTRASOUND, RIGHT UPPER QUADRANT HISTORY: Acutely elevated LFTs jaundice; elevated bilirubin. COMPARISON: CT 08/09/2023 FINDINGS: Pancreas: The pancreas is obscured by bowel gas. Liver: 22 cm in length parenchymal heterogeneity and increased echogenicity with marginal nodularity. No hepatic mass identified. Trace perihepatic ascites. Hepatopedal flow noted within the patent port al vein. Gallbladder: Distended and sludge-filled. No shadowing cholelithiasis. Gallbladder wall measures 3 mm . CBD: 5 mm. Right kidney: No hydronephrosis. IMPRESSION: 1. Distended sludge-filled gallbladder with borderline wall thickening is similar in appearance to e 08/09/2023 CT exam. 2. No cholelithiasis or biliary ductal dilation. 3. Hepatomegaly with cirrhosis and trace ascites redemonstrated. ACT 112: Negative or not required by law. Electronically signed by: Mino Lewis M.D. 01/13/2024 6:03 PM
[2024-01-13 18:09] LABS: Potassium 4.5 mmol/L (3.5-5.1)
[2024-01-13 18:37] LABS: Hep B Surface Ag with confirm Negative (Negative)
[2024-01-13 18:40] LABS: Adenovirus PCR Not Detected (NotDetected); Bordetella parapertussis PCR Not Detected (NotDetected); Bordetella pertussis PCR Not Detected (NotDetected); Chlamydia pneumoniae PCR Not Detected (NotDetected); Coronavirus 229E PCR Not Detected (NotDetected); Coronavirus CoV-2 (COVID19)PCR Not Detected (NotDetected); Coronavirus HKU1 PCR Not Detected (NotDetected); Coronavirus NL63 PCR Not Detected (NotDetected); Coronavirus OC43PCR Not Detected (NotDetected); Human Metapneumovirus PCR Not Detected (NotDetected); Influenza A PCR Not Detected (NotDetected); Influenza B PCR Not Detected (NotDetected); Mycoplasma pneumoniae PCR Not Detected (NotDetected); Parainfluenza Virus 1 PCR Not Detected (NotDetected); Parainfluenza Virus 2 PCR Not Detected (NotDetected); Parainfluenza Virus 3 PCR Not Detected (NotDetected); Parainfluenza Virus 4 PCR Not Detected (NotDetected); Respiratory Syncytial VirusPCR Not Detected (NotDetected); Rhinovirus/Enterovirus PCR Not Detected (NotDetected)
[2024-01-13 18:42] LABS: Hep C Ab Rflx HepCQuant RNA Negative (Negative)
--- NOTE | 2024-01-13 19:12 | History & Physical Report ---
Date of Service January 13, 2024 Assessment & Plan (1) Alcoholic cirrhosis of liver with ascites: Plan: Worsening hepatic function in the setting of alcoholic cirrhosis - jaundice, elevated tbili, thrombocytopenia, anemia, coagulopathy, kidney dysfunction. MELD 25. Memodrey's 44.6%. Would likely benefit from steroid administration. Awaiting hepatitis panel prior to starting. Low threshold to start CTX if concern arises for SBP. MELD labs, monitor CBC IV pantoprazole BID Consider steroids Consider GI consult (2) Alcohol withdrawal syndrome: Plan: History of alcohol withdrawal. Ethyl alcohol > 200 on admit, but patient already demonstrating signs of withdrawal. Given 10 mg valium IV as there is concern for severe alcohol withdrawal. Started active AWSS protocol. thiamine/folate/multivitamin AWSS protocol PCU/tele encourage cessation CM consulted to help arrange rehab (3) Elevated lipase: Plan: Likely chronic pancreatitis in the setting of long standing alcohol use. Currently asymptomatic. Does have some enlargement of the gallbladder on US, but not significantly changed from 07/2023 exam. Continue to monitor. 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 Last ECHO 2019. Repeat during this hospital stay (5) Type 2 diabetes mellitus: Plan: SSI while inpatient. No basal dosing ordered - can add if persistently elevated. (6) Hypertension: Plan: BPs on the soft side. Gave a small bolus. Judicious fluid resuscitation as patient with mildly reduced EF. Hold BP meds for now. (7) NATALY (acute kidney injury): Plan: Monitor with AM labs (8) Coagulopathy: (9) Alcohol intoxication: (10) Bone marrow depression: Plan Hypothyroidism: Resume home levo once meds reconciled GERD: IV pantoprazole 40 mg BID for now. Likely resume home PPI on discharge Nerve pain: Patient on gabapentin. Dosing unclear as med rec not completed. Continue once confirmed. Code status: full DVT ppx: SCDs, chemo ppx contraindicated as INR 1.8 FENGI: Heart Healthy, Carb Consistent, LR IVF @ 100 mL x 1.5L Dispo: PCU/tele History of Present Illness Chief Complaint: jaundice Primary Care Provider: BEHZAD Salazar 53 y/o male with PMHx of HTN, HLD, DM, GERD, esophageal and alcohol use disorder here for worsening jaundice. Patient has a long standing alcohol use history. Has known cirrhosis and ascites. No history of variceal bleed. Does have a history of alcohol withdrawal. Current every day drinker - 2, 24 ounce malt liquor beverages daily. Interested in cessation. Presented for worsening jaundice. No nausea or vomiting. No dark or bloody stools. Takes pantoprazole. No fevers, chills, CP, SOB. Would like to eat. Allergies Allergy/AdvReac Type Severity Reaction Status Date / Time No Known Allergies Allergy Verified 11/17/23 10:49 Home Medications Medication Instructions Recorded Confirmed Type carvedilol 25 mg tablet (Coreg) 25 mg PO BID #180 tabs 08/05/23 01/13/24 Rx lancets 33 gauge (OneTouch Delica #100 ea 08/12/23 11/17/23 Rx Plus Lancet) pen needle, diabetic 32 gauge x #1,200 ea 08/12/23 11/17/23 Rx 5/32" pantoprazole 40 mg tablet,delayed 40 mg PO DAILY #90 tabs 08/19/23 01/13/24 Rx release blood-glucose meter,continuous #1 ea 10/12/23 11/17/23 Rx (FreeStyle Raegan 3 [place]) blood-glucose sensor (FreeStyle #2 ea 10/12/23 11/17/23 Rx Raegan 3 Sensor device) gabapentin 300 mg capsule 300 mg PO HS PRN Other 10/12/23 01/13/24 History lisinopril 5 mg tablet 5 mg PO QAM #90 tabs 11/05/23 01/13/24 Rx gabapentin 100 mg capsule 100 mg PO HS #30 caps 12/15/23 01/13/24 Rx levothyroxine 137 mcg tablet 137 mcg PO QAM #30 tabs 12/15/23 01/13/24 Rx blood sugar diagnostic (OneTouch #100 ea 01/07/24 Rx Verio test strips) empagliflozin 10 mg tablet 10 mg PO DAILY #90 tabs 01/07/24 01/13/24 Rx (Jardiance) Past Med/Surg History Problem List (Updated 01/13/24 @ 20:16 by Nery Orellana MD) Acute heart failure with mildly reduced ejection fraction (HFmrEF, 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 Alcohol withdrawal syndrome Coagulopathy Elevated lipase Alcoholic cirrhosis of liver with ascites Alcohol intoxication (Acute) Acute pancreatitis (Acute) Hypomagnesemia (Acute) NATALY (acute kidney injury) (Acute) Hyperbilirubinemia (Acute) Olecranon bursitis, left elbow Insulin dependent type 2 diabetes mellitus Thrombocytopenia (Acute) UGIB (upper gastrointestinal bleed) (Acute) Anemia (Acute) Type 2 diabetes mellitus History of atrial fibrillation Abdominal ascites (Acute) Hepatic cirrhosis (Acute) GERD (gastroesophageal reflux disease) Esophageal dysphagia Primary hypogonadism in male Erectile dysfunction Obesity (BMI 30-39.9) Metabolic syndrome Hyperlipidemia Fatty liver, alcoholic Elevated ferritin Elevated liver function tests Hypothyroid Low testosterone in male Insomnia (Chronic) Hypertension (Chronic) Congestive heart failure (CHF) (Chronic) HX OF Alcoholic cardiomyopathy (Chronic) Admitted 04/2018 for ETOH withdrawal, acute pancreatitis, non-ischmeic CM with EF 15-20%- LifeVest monitoring 07/07/18 showed a fib with RVR with tachycardia-induced tachycardia. Repeat ECHO in 07/2018 shows EF of 32%>NOW PT STATES EF IS "NORMAL" 60/NO CARDS Medical History Borderline diabetic History of kidney stones Infected pacemaker History of urinary tract infection Surgical History [place] teeth removed S/P debridement (05/30/19) Hx of hernia repair Hx of cystoscopy History of cardiac cath Family History Father Alcohol abuse Heart disease Cardiac disorder Myocardial infarction, Onset Age: 60 Brother Cancer Mother Stroke Other No family history of adverse response to anesthesia Denies family history of Colon cancer Ovarian cancer Prostate cancer Breast cancer Social History Smoking Status: Never smoker Tobacco Type: Cigarettes Second Hand Exposure: No; Do You Dip or Chew Tobacco: No; Hx Alcohol Use: Yes Alcohol type: other Alcohol Intake Frequency: 4 or More x per/Week Hx Substance Use: No Preferred Language: Telugu Communication Ability: Effective Visual Impairment: No Limitations Hearing Ability: Normal Ham Doctor Required: No Beliefs That Will Affect Care: None marital status: Current Living Situation: Spouse current occupational status: employed How many Children do You have: 2 Other Information That Helps Us Care for You: No Feels Safe at Home: Yes Safety Concerns: Feels Safe At This Time Childhood Exposure to Second-Hand Smoke: Yes Diet: regular Diet Comment: regular caffeine: Yes during the past year weight has: remained stable Dental Care, Regularly: No Physical Activity Frequency: 3-4 Times per Week Seatbelt Use: always Sunscreen Use: No Assistive Devices: Glasses Review of Systems Review of Systems: See HPI Physical Exam Physical Exam: Gen: jaundiced, chronically ill appearing patient in NAD, appears older than stated age HEENT: AT [place] MMM Resp: CTAB no wheezing no increased work of breathing CV: RRR no m/r/g clinically well perfused Abd: soft, non-tender, distended, no palpable ascites MSK: no obvious deformities Skin: no rashes or bruising Neuro: alert and oriented Psych: appropriate mood and affect Results & Data Results & Data Vital Signs (Past 12 Hours) Vital Signs Temp Pulse Pulse Resp BP BP Pulse Ox 01/13/24 17:56 69 16 109/64 94 01/13/24 16:59 84 16 117/75 97 01/13/24 16:44 83 01/13/24 16:42 75 16 97 01/13/24 16:26 36.6 C 88 20 106/64 96 O2 Del Method 01/13/24 17:56 Room Air 01/13/24 16:59 Room Air 01/13/24 16:44 01/13/24 16:42 Room Air 01/13/24 16:26 Room Air Diagnostic Findings Chest X-Ray 01/13/24 16:36 FINDINGS: Cardiac silhouette is mildly enlarged. The lungs are clear. No pneumothorax or pleural effusion. The bones appear intact. IMPRESSION: Cardiomegaly without acute process. Gallbladder Ultrasound 01/13/24 17:01 FINDINGS: Pancreas: The pancreas is obscured by bowel gas. Liver: 22 cm in length parenchymal heterogeneity and increased echogenicity with marginal nodularity. No hepatic mass identified. Trace perihepatic ascites. Hepatopedal flow noted within the patent portal vein. Gallbladder: Distended and sludge-filled. No shadowing cholelithiasis. Gallbladder wall measures 3 mm. CBD: 5 mm. Right kidney: No hydronephrosis. IMPRESSION: 1. Distended sludge-filled gallbladder with borderline wall thickening is similar in appearance to the 08/09/2023 CT exam. 2. No cholelithiasis or biliary ductal dilation. 3. Hepatomegaly with cirrhosis and trace ascites redemonstrated. Supervising Physician Co-Signing Physician Notes Attending addendum: I have physically seen this patient, have supervised the medical residents activities, and agree with the H&P unless as otherwise noted. Assessment and Plan: Alcoholic liver cirrhosis/ascites- Total bilirubin 9.2, AST 99, ALT 30, alkaline phosphatase 110 MELD score 25, Madrey's 44.6 Hepatitis B and C panels pending, if negative, will start prednisone 40 mg daily Pantoprazole 40 mg IV twice daily Alcohol intoxication/alcohol dependency- The patient will be admitted to telemetry Alcohol level 237.4, with last intake just prior to arrival in the ED Replace thiamine, folate and multivitamin AWSS protocol HFmrEF/alcoholic cardiomyopathy/hypertension The patient will be admitted to telemetry for serial cardiac enzymes, serial EKG's, cardiac rhythm monitoring and a 2-D echocardiogram with Dopplers. Blood pressure 93/54 on admission For now hold carvedilol and lisinopril, and resume partial dosing as blood pressure improves Patient overall looks volume depleted, LR at 100 mL/h x 1 L Acute kidney injury superimposed on CKD- Creatinine 1.47 with base 0.99 Temporarily holding lisinopril and empagliflozin, IV fluids as noted, recheck laboratories in a.m. Coagulopathy- INR has progressed from 1.4-1.8 Trial of vitamin K 10 mg IV x 1, recheck laboratories in a.m. Diabetes mellitus- Place on Accu-Cheks with NovoLog SSI Glucose 164 on admission Hypomagnesemia- Magnesium 1.5, replace IV, recheck laboratories in a.m. Resident Activity Tracking Resident Involvement: Resident Care Provided Care Provided: Adult [facility]
[2024-01-13] MEDS: MULTI-VITAMIN INFUSION 10 ML, THIAMINE HCL 100 MG, FOLIC ACID 1 MG in SODIUM CHLORIDE 0... IV ONE (19:19)
[2024-01-13] MEDS: diazePAM 5 MG/ML 10ML VIAL IV STA (19:46)
[2024-01-13] MEDS: MAGNESIUM SULFATE / D5W 1 GM/100 ML BAG IV SCH (19:46)
[2024-01-13] MEDS: SODIUM CHLORIDE 0.9% 250 ML IV ONE (21:37)
[2024-01-13] MEDS ORDERED: CARBOHYDRATES FOR HYPOGLYCEMIA PO PRN (22:19)
[2024-01-13] MEDS ORDERED: LORazepam 2 MG/1 ML VIAL IV PRN (22:19)
[2024-01-13] MEDS ORDERED: Ativan IV Alcohol Withdrawal--Active Protocol IV PRN (22:19)
[2024-01-13] MEDS ORDERED: GLUCAGON FOR INJ 1 MG VIAL SQ PRN (22:19)
[2024-01-13] MEDS ORDERED: MAGNESIUM HYDROXIDE SUSP 30 ML UDC PO PRN (22:19)
[2024-01-13] MEDS ORDERED: DEXTROSE 50% 50 ML SYRINGE IV PRN (22:19)
[2024-01-13] MEDS ORDERED: POLYETHYLENE (MIRALAX) 17 GM PACK PO PRN (22:19)
[2024-01-13] MEDS ORDERED: GLUCOSE 40% GEL 15 GM TUBE PO PRN (22:19)
[2024-01-13] MEDS ORDERED: ONDANSETRON INJ 2 MG/ML 2 ML VIAL IV PRN (22:19)
[2024-01-13] MEDS ORDERED: GLUCOSE 10 TAB/TUBE PO PRN (22:19)
[2024-01-13] MEDS ORDERED: ALUMINUM/MAGNESIUM SUSP 30 ML UDC PO PRN (22:19)
[2024-01-13] MEDS ORDERED: MELATONIN 3 MG TAB PO PRN (23:05)
[2024-01-13] MEDS: INSULIN ASPART PER UNIT CHARGE SC SCH (23:22)
[2024-01-13] MEDS: GABAPENTIN 100 MG CAP PO ONE (23:23)
[2024-01-13] MEDS: PANTOprazole 40 MG in SYRINGE 0 ML IV SCH (23:23)
[2024-01-13] MEDS: MELATONIN 3 MG TAB PO ONE (23:40)
[2024-01-13] MEDS: hydrOXYzine HCl 25 MG TAB PO STA (23:40)
[2024-01-13] MEDS: LACTATED RINGER'S 1,000 ML IV SCH (23:41)
--- NOTE | 2024-01-13 23:41 | Billing Data ---
Date of Service January 13, 2024 Coding Level of Care Code 44425 INT INP/OBS CARE
[2024-01-14] MEDS: PHYTONADIONE 10 MG in SODIUM CHLORIDE 0.9% 50 ML IV ONE (00:14)
[2024-01-14 06:55] LABS: Basophils # (auto) 0.08 K/uL (0.00-0.20); Basophils % (auto) 0.9 %; Eosinophils % (auto) 3.6 %; Hematocrit (blood only) 24.5 % (42.0-52.0); Hemoglobin 9.1 g/dl (14.0-18.0); Immature Granulocytes # (auto) 0.14 K/uL (0.01-0.20); Immature Granulocytes % (auto) 1.7 %; Lymphocytes % (auto) 17.8 %; Mean Corpuscular Hemoglobin 40.3 pg (25.0-34.0); Mean Corpuscular Hgb Conc 37.1 g/dL (32.0-36.0); Mean Corpuscular Volume 108.4 fL (80.0-100.0); Mean Platelet Volume 10.9 fL (9.4-12.4); Monocytes # (auto) 0.65 K/uL (0.11-0.59); Monocytes % (auto) 7.7 %; Neutrophils # (auto) 5.78 K/uL (1.40-6.50); Neutrophils % (auto) 68.3 %; Nucleated RBC # (auto) 0.02 K/uL (0.00-0.12); Nucleated RBC % (auto) 0.2 %; Platelet Count 53 K/uL (130-400); RDW Coefficient of Variation 18.2 % (11.5-14.5); RDW Standard Deviation 70.5 fL (36.4-46.3); Red Blood Count 2.26 M/uL (4.70-6.10); White Blood Count 8.45 K/ul (4.8-10.8)
[2024-01-14] MEDS: MULTIVITAMIN TAB PO SCH (08:41)
[2024-01-14] MEDS: THIAMINE HCL 100 MG in SYRINGE 9 ML IV SCH (08:41)
[2024-01-14] MEDS: FOLIC ACID 1 MG in SYRINGE 9.8 ML IV SCH (08:41)
--- NOTE | 2024-01-14 08:42 | Hospitalist Progress Note ---
Date of Service January 14, 2024 Assessment & Plan (1) Alcoholic cirrhosis of liver with ascites: Plan: Worsening hepatic function in the setting of alcoholic cirrhosis - jaundice, elevated tbili, thrombocytopenia, anemia, coagulopathy, kidney dysfunction. Maddrey's 34.4%. MELD reduced to 22 with a 19.6% 3 month mortality Would likely benefit from steroid administration. Awaiting hepatitis A Igm and is also appearing stable or improving, not suspecting SBP will consult GI medicine to help with decision on staring steroids, started on cholestyramine to try to help reduce bili IV pantoprazole 40 mg BID for now. Likely resume home PPI on discharge last upper endoscopy in 2022 was without varices but did have esophageal stricture (2) Alcohol withdrawal syndrome: Plan: History of alcohol withdrawal. Ethyl alcohol > 200 on admit, but patient already demonstrating signs of withdrawal. Scheduled librium, and consider gabapentin for severe alcohol withdrawal. Started active AWSS protocol. thiamine/folate/multivitamin AWSS protocol PCU/tele encourage cessation CM consulted to help arrange rehab (3) Elevated lipase: Plan: Likely chronic pancreatitis in the setting of long standing alcohol use. Currently asymptomatic. Does have some enlargement of the gallbladder on US, but not significantly changed from 07/2023 exam. Continue to monitor. 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 Last ECHO 2019. Repeat during this hospital stay pt in past did have AICD that was infected shortly after placement and removed along with leads lower blood pressure on admission holding outpt blood pressure medications, did receive 1.5 L ivf (5) Type 2 diabetes mellitus: Plan: SSI while inpatient. No basal dosing ordered - can add if persistently elevated. neuropahty, Nerve pain: Patient on gabapentin, may need higher dosing to help with withdrawal . (6) NATALY (acute kidney injury): Plan: resolved with CKD2 Plan Hypothyroidism: Resume home levo once meds reconciled Code status: full DVT ppx: SCDs, chemo ppx contraindicated as INR elevated Admission and Anticipated Discharge Date Admission Date: January 13, 2024 Subjective This patient is slightly tremulous still likely metabolizing the alcohol that was positive on presentation is present at the bedside and updated Patient has significant hyperbilirubinemia without significant transaminitis, his discriminant function is reduced slightly to 34.4. We are awaiting the IgM results of hepatitis A since he is improving clinically we will hold off on using any prednisone at this time. Gastroenterology consult be undertaken is previously seen by Dr Riley Physical Exam Physical Exam: Jaundice anicteric Slightly tremulous Card exam is regular lungs are clear Abdomen is with minor dullness slight discomfort in the right upper quadrant cannot palpate defined hepatomegaly Extremities are trace edema Results & Data Results & Data Vital Signs (Past 12 Hours) Vital Signs Temp Pulse Pulse Resp BP Pulse Ox O2 Del Method 01/14/24 08:25 98.8 F 79 20 117/71 93 Room Air 01/14/24 06:00 69 01/14/24 03:08 97.9 F 73 18 108/63 92 Nasal Cannula 01/13/24 22:59 77 01/13/24 22:15 97.5 F L 66 18 119/76 94 Room Air 01/13/24 20:39 77 O2 Flow Rate 01/14/24 08:25 01/14/24 06:00 01/14/24 03:08 2.0 01/13/24 22:59 01/13/24 22:15 01/13/24 20:39 Laboratory Results Reviewed CBC Reviewed chemistry Reviewed INR PG Care Time/CCT Total # of Minutes Spent Total Time Spent with Patient: Total time spent is greater than 50% in coordination of care (as documented) at patient's floor/unit and/or counseling patient: Coding Level of Care Code 46990 SUB INP/OBS CARE 3/50MIN Diagnoses Alcoholic cirrhosis of liver with ascites K70.31 Alcohol withdrawal syndrome F10.939 Elevated lipase R74.8 Acute heart failure with mildly reduced ejection fraction (HFmrEF, 41-49%) I50.21 Type 2 diabetes mellitus E11.9 NATALY (acute kidney injury) N17.9
[2024-01-14 09:52] LABS: INR 1.7 (0.9-1.1); Partial Thromboplastin Ratio 1.2; Partial Thromboplastin Time 31 Seconds (21-31); Prothrombin Time 17.5 Seconds (9.0-12.0)
[2024-01-14 09:55] LABS: Alanine Aminotransferase 28 U/L (7-52); Albumin Globulin Ratio 0.6 (0.9-2); Albumin Level 2.4 gm/dl (3.4-5.0); Alkaline Phosphatase 85 U/L (34-104); Anion Gap 11 (3-11); Aspartate Aminotransferase 82 U/L (13-39); BUN Creatinine Ratio 5.8 (10-20); Bilirubin,Total 9.1 mg/dl (0.2-1.0); Blood Urea Nitrogen 7 mg/dl (6-23); Calcium 8.1 mg/dl (8.6-10.3); Carbon Dioxide 19 mmol/L (21-32); Chloride 113 mmol/L (98-107); Creatinine Clr Calc Pharmacy 83.2 ml/min; Est GFR (Non-African American) 68.1 ml/min; Globulin 4.3 gm/dl (2.5-4.0); Glucose 98 mg/dl (70-99(Fasting)); Potassium 4.7 mmol/L (3.5-5.1); Sodium 143 mmol/L (136-145); Total Protein 6.7 gm/dl (6.0-8.3)
[2024-01-14] MEDS: LORazepam 2 MG/1 ML VIAL IV PRN ×2 (10:31→20:58)
[2024-01-14] MEDS: MAGNESIUM SULFATE / D5W 1 GM/100 ML BAG IV SCH (12:43)
--- NOTE | 2024-01-14 13:10 | XCELERA ---
[id number]
[2024-01-14] MEDS: chlordiazePOXIDE HCl 25 MG CAP PO SCH (13:45)
--- NOTE | 2024-01-14 22:26 | Electrocardiogram Report ---
Test Reason : Blood Pressure : */* mmHG Vent. Rate : 83 BPM Atrial Rate : 83 BPM P-R Int : 186 ms QRS Dur : 114 ms QT Int : 368 ms P-R-T Axes : 59 -33 38 degrees QTcB Int : 432 ms Normal sinus rhythm Left axis deviation Incomplete right bundle branch block Minimal voltage criteria for LVH, may be normal variant Septal infarct (cited on or before 09-Aug-2023) Abnormal ECG When compared with ECG of 09-Aug-2023 18:12, QT has shortened Confirmed by Art Puentes ([id number]) on 01/14/2024 10:26:32 PM Referred By: Teddy Duran Confirmed By: Art Puentes
[2024-01-15] MEDS: CHOLESTYRAMINE LIGHT 4 GM PKT PO SCH (00:39)
[2024-01-15 06:04] LABS: Basophils # (auto) 0.08 K/uL (0.00-0.20); Basophils % (auto) 0.9 %; Eosinophils # (auto) 0.33 K/uL (0.00-0.50); Eosinophils % (auto) 3.8 %; Hematocrit (blood only) 25.8 % (42.0-52.0); Hemoglobin 9.2 g/dl (14.0-18.0); Immature Granulocytes # (auto) 0.09 K/uL (0.01-0.20); Lymphocytes # (auto) 1.23 K/uL (1.20-3.40); Lymphocytes % (auto) 14.3 %; Mean Corpuscular Hemoglobin 39.7 pg (25.0-34.0); Mean Corpuscular Hgb Conc 35.7 g/dL (32.0-36.0); Mean Corpuscular Volume 111.2 fL (80.0-100.0); Mean Platelet Volume 10.4 fL (9.4-12.4); Monocytes # (auto) 0.78 K/uL (0.11-0.59); Neutrophils # (auto) 6.12 K/uL (1.40-6.50); Platelet Count 63 K/uL (130-400); RDW Standard Deviation 68.6 fL (36.4-46.3); Red Blood Count 2.32 M/uL (4.70-6.10); White Blood Count 8.63 K/ul (4.8-10.8)
[2024-01-15 06:13] LABS: INR 1.7 (0.9-1.1); Partial Thromboplastin Ratio 1.4; Partial Thromboplastin Time 38 Seconds (21-31); Prothrombin Time 17.8 Seconds (9.0-12.0)
[2024-01-15 06:22] LABS: Albumin Globulin Ratio 0.6 (0.9-2); Albumin Level 2.4 gm/dl (3.4-5.0); Bilirubin Direct 4.6 mg/dl (0-0.2); Bilirubin,Total 11.6 mg/dl (0.2-1.0); Calcium 7.9 mg/dl (8.6-10.3); Creatinine Clr Calc Pharmacy 90.5 ml/min; Est GFR (African American) 85.9 ml/min; Est GFR (Non-African American) 74.1 ml/min; Globulin 4.2 gm/dl (2.5-4.0); Potassium 3.7 mmol/L (3.5-5.1); Total Protein 6.6 gm/dl (6.0-8.3)
[2024-01-15 06:51] LABS: Macrocytosis Present; Pappenheimer Bodies 1+; Polychromasia 3+; Target Cells 1+
[2024-01-15] MEDS: LEVOTHYROXINE SODIUM 137 MCG TABLET PO SCH (09:15)
--- NOTE | 2024-01-15 10:57 | Gastrointestinal Consultation ---
Date of Consultation January 15, 2024 Assessment & Plan (1) Alcoholic hepatitis: DF 38.3, MELD 24 -Consider addition of corticosteroids given discriminant function; this would likely require more aggressive monitoring/treatment of his blood sugars. -Continue to trend LFTs, INR, & calculate daily MELD/DF. -Continue to monitor for alcohol withdrawal -Advise supplementation with Thiamine & Folic acid -Can plan to calculate Lille score on day 5 -Alcohol abstinence would be advised -Minimal ascites on US imaging, currently not on diuretic therapy at home -If improving, plan for outpatient follow-up with Dr. Alonso from [facility]; If acutely decompensating while admitted, can consider transfer to a center with hepatology resources. Supervising Physician Co-Signing Physician Notes I examined the patient and reviewed patient's chart , laboratory data and imaging studies. I agree with with assessment and plan of care as suggested by advanced practice provider. Agree with treatment with steroids. History of Present Illness Reason for Consultation: Alcoholic hepatitis Attending Physician: Roberth Murillo MD History of Present Illness Patient is a 53 yo male with PMH Of HTN, HLD, DM, GERD, & alcoholic cirrhosis who presented to [facility] with worsening jaundice. The patient has a long history of alcohol use. He follows with Dr. Alonso from [facility] for his cirrhosis. He notes that he drinks alcohol daily and recently cut back from 12 drinks per day to 2, 24 oz malt liquor drinks daily. He notes that due to worsening jaundice, he presented to the ED. His alcohol level was elevated to 237.4. T bili was elevated. Abdominal US showed cirrhosis, trace ascites, & a distended sludge filled gallbladder. He also has concern for acute heart failure. Currently his MELD score is 24, Maddrey's DF 38.3 today. In November Hep A, B, C acute infections were ruled out. New hepatitis serologies pending. T Bili today 11.6, D bili 4.6, AST 72, ALT 25. INR 1.7. He has had an EGD in April 2022 without varices. He does have a history of esophageal stricture. Colonoscopy in April 2022 with diverticulosis & internal hemorrhoids. Allergies Allergy/AdvReac Type Severity Reaction Status Date / Time No Known Allergies Allergy Verified 11/17/23 10:49 Home Medications Medication Instructions Recorded Confirmed Type carvedilol 25 mg tablet (Coreg) 25 mg PO BID #180 tabs 08/05/23 01/13/24 Rx lancets 33 gauge (OneTouch Delica #100 ea 08/12/23 11/17/23 Rx Plus Lancet) pen needle, diabetic 32 gauge x #1,200 ea 08/12/23 11/17/23 Rx 5/32" pantoprazole 40 mg tablet,delayed 40 mg PO DAILY #90 tabs 08/19/23 01/13/24 Rx release blood-glucose meter,continuous #1 ea 10/12/23 11/17/23 Rx (FreeStyle Raegan 3 [employer]) blood-glucose sensor (FreeStyle #2 ea 10/12/23 11/17/23 Rx Raegan 3 Sensor device) gabapentin 300 mg capsule 300 mg PO HS PRN Other 10/12/23 01/13/24 History lisinopril 5 mg tablet 5 mg PO QAM #90 tabs 11/05/23 01/13/24 Rx gabapentin 100 mg capsule 100 mg PO HS #30 caps 12/15/23 01/13/24 Rx levothyroxine 137 mcg tablet 137 mcg PO QAM #30 tabs 12/15/23 01/13/24 Rx blood sugar diagnostic (OneTouch #100 ea 01/07/24 Rx Verio test strips) empagliflozin 10 mg tablet 10 mg PO DAILY #90 tabs 01/07/24 01/13/24 Rx (Jardiance) Patient History Medical History Borderline diabetic History of kidney stones Infected pacemaker Pacer removed August 2018 2/2 infected wires History of urinary tract infection Surgical History [place] teeth removed S/P debridement (05/30/19) Left Chest Wound Debridement Dr. Pratt 05/30/19 Hx of hernia repair Hx of cystoscopy x2 History of cardiac cath ismael - 2019/NO STENTS Family History Father Alcohol abuse Heart disease Cardiac disorder Myocardial infarction, Onset Age: 60 Brother Cancer Mother Stroke Other No family history of adverse response to anesthesia Denies family history of Colon cancer Ovarian cancer Prostate cancer Breast cancer Social History Smoking Status: Never smoker Tobacco Type: Cigarettes Second Hand Exposure: No; Do You Dip or Chew Tobacco: No; Hx Alcohol Use: Yes Alcohol type: other Alcohol Intake Frequency: 4 or More x per/Week Hx Substance Use: No Preferred Language: Algerian Communication Ability: Effective Visual Impairment: No Limitations Hearing Ability: Normal Diesel Service Journeyman Required: No Beliefs That Will Affect Care: None marital status: Current Living Situation: Spouse current occupational status: employed How many Children do You have: 2 Other Information That Helps Us Care for You: No Feels Safe at Home: Yes Safety Concerns: Feels Safe At This Time Childhood Exposure to Second-Hand Smoke: Yes Diet: regular Diet Comment: regular caffeine: Yes during the past year weight has: remained stable Dental Care, Regularly: No Physical Activity Frequency: 3-4 Times per Week Seatbelt Use: always Sunscreen Use: No Assistive Devices: None Review of Systems Constitutional: no fever and no chills Respiratory: no cough and no dyspnea Cardiovascular: no chest pain Gastrointestinal: no abdominal pain, no nausea, no vomiting, no dysphagia, no constipation, no diarrhea/loose stools and no blood in stools Psychiatric: no problem reported Physical Exam Constitutional: no acute distress Respiratory: normal respiratory effort, lungs clear to auscultation Gastrointestinal (Abdomen): normal bowel sounds, soft, nontender, no hepatosplenomegaly Psychiatric: Orientation: alert and oriented x 3 Results & Data Vital Signs (Past 12 Hours) Vital Signs Temp Pulse Pulse Resp BP Pulse Ox O2 Del Method 01/15/24 08:47 36.7 C 82 20 128/81 95 Room Air 01/15/24 03:42 36.8 C 73 18 115/74 93 Room Air 01/15/24 00:11 78 01/14/24 23:35 36.7 C 75 18 114/74 93 Room Air PG Care Time/CCT Total # of Minutes Spent Total Time Spent with Patient: Total time spent is greater than 50% in coordination of care (as documented) at patient's floor/unit and/or counseling patient: Coding Level of Care Code 80512 IN/OBS CONSULT LVL 4,60M Diagnoses Alcoholic hepatitis K70.10
[2024-01-15 12:28] LABS: Hepatitis A Antibody IgM NON-REACTIVE (NON-REACTIVE); Hepatitis B Core Antibody IgM NON-REACTIVE (NON-REACTIVE)
--- NOTE | 2024-01-15 12:47 | Hospitalist Progress Note ---
Date of Service January 15, 2024 Assessment & Plan (1) Hepatic cirrhosis: (2) Alcoholic hepatitis: (3) NATALY (acute kidney injury): (4) Type 2 diabetes mellitus: (5) Obesity (BMI 30-39.9): (6) Congestive heart failure (CHF): (7) Alcoholic cardiomyopathy: (8) Thrombocytopenia: (9) Anemia: Plan 53-year-old male with past medical history of alcoholic cardiomyopathy, liver cirrhosis, alcohol use disorder, essential hypertension, type 2 diabetes mellitus who presented to the hospital for worsening jaundice and was also found to be in alcohol withdrawal #Alcoholic hepatitis #Liver cirrhosis due to to alcohol use #Alcohol use disorder with withdrawal #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 3 times daily CIWA alcohol withdrawal protocol with Ativan Continue multivitamin plus thiamine plus folic acid Alcohol cessation counseling provided Patient is interested in engaging with inpatient alcohol rehab: Case management working with him Continue Protonix 40 mg IV twice daily I have reached out to GI via [employer] for recommendations regarding corticosteroids: Awaiting recommendations Monitor LFTs, INR and CBC #NATALY Resolved with IV fluids Monitor renal function and electrolytes Avoid nephrotoxic agents including NSAIDs #Alcohol related cardiomyopathy/chronic congestive heart failure with mildly red uced ejection fraction of 50% #Essential hypertension Echo from 01/14/2024 shows EF of 50% with no wall motion abnormality and moderate concentric LVH with mild mitral regurgitation Patient's blood pressure is running low normal and hence lisinopril has been held Avoid carvedilol with low blood pressure For beta-panfilo start Toprol-XL 12.5 mg daily with hold parameters I/O monitoring Daily weights #Type 2 diabetes mellitus A1c is 4.4 Accu-Cheks before every meal and nightly with sliding scale insulin coverage Monitor glycemic control #Hypothyroidism Continue levothyroxine 137 mcg p.o. daily CODE STATUS: Full code DVT prophylaxis: Bilateral SCDs, unable to use chemical prophylaxis secondary dose thrombocytopenia Transfer to tertiary care center with hepatology services: Transfer center aware Care plan discussed with patient, nursing staff Admission and Anticipated Discharge Date Admission Date: January 13, 2024 Subjective Patient seen and examined He denies any chest pain, shortness of breath, nausea, vomiting or abdominal pain He is currently on Librium Hep A IgM and hep B core IgM are pending Bilirubin is rising Social history: Patient admits to drinking heavily every day. He lives with his family and is independent of ADLs Review of Systems Review of Systems: As per HPI Physical Exam Physical Exam: General: No acute distress Psych: Awake and alert HEENT: icteric sclera, moist oral mucosa CVS: Regular rate and rhythm Lungs: Bilateral air entry, no wheezing noted Abdomen: Soft, nontender, no rebound, no guarding Ext: No lower extremity edema, no calf tenderness Neuro: No focal motor deficits noted Results & Data Results & Data Vital Signs (Past 12 Hours) Vital Signs Temp Pulse Pulse Resp BP Pulse Ox O2 Del Method 01/15/24 11:52 75 01/15/24 11:52 Room Air 01/15/24 10:53 37.2 C 77 20 105/59 L 90 Room Air 01/15/24 08:47 36.7 C 82 20 128/81 95 Room Air 01/15/24 03:42 36.8 C 73 18 115/74 93 Room Air Laboratory Results Laboratory Results - last 24 hr 01/13/24 01/14/24 01/14/24 Unknown 16:23 19:58 WBC RBC Hgb Hct MCV MCH MCHC RDW Std Deviation RDW Coeff of Uvaldo Plt Count MPV Immature Gran % (Auto) Neut % (Auto) Lymph % (Auto) [place] % (Auto) Eos % (Auto) Baso % (Auto) Neut # (Auto) Lymph # (Auto) [place] # (Auto) Eos # (Auto) Baso # (Auto) Immature Gran # (Auto) Polychromasia Macrocytosis Pappenheimer Bodies Target Cells PT INR APTT PTT Ratio Sodium Potassium Chloride Carbon Dioxide Anion Gap BUN Creatinine Est Cr Clr Drug Dosing Est GFR ( Amer) Est GFR (Non-Af Amer) BUN/Creatinine Ratio Glucose POC Glucose 156 H 109 H Calcium Total Bilirubin Direct Bilirubin AST ALT Alkaline Phosphatase Total Protein Albumin Globulin Albumin/Globulin Ratio Hepatitis A IgM Ab NON-REACTIVE Hep B Core IgM Ab NON-REACTIVE 01/15/24 01/15/24 01/15/24 05:35 07:37 11:28 WBC 8.63 RBC 2.32 L Hgb 9.2 L Hct 25.8 L MCV 111.2 H MCH 39.7 H MCHC 35.7 RDW Std Deviation 68.6 H RDW Coeff of Uvaldo 17.0 H Plt Count 63 L MPV 10.4 Immature Gran % (Auto) 1.0 Neut % (Auto) 71.0 Lymph % (Auto) 14.3 [place] % (Auto) 9.0 Eos % (Auto) 3.8 Baso % (Auto) 0.9 Neut # (Auto) 6.12 Lymph # (Auto) 1.23 [place] # (Auto) 0.78 H Eos # (Auto) 0.33 Baso # (Auto) 0.08 Immature Gran # (Auto) 0.09 Polychromasia 3+ Macrocytosis Present Pappenheimer Bodies 1+ Target Cells 1+ PT 17.8 H INR 1.7 H APTT 38 H PTT Ratio 1.4 Sodium 136 Potassium 3.7 D Chloride 105 Carbon Dioxide 26 Anion Gap 5 BUN 9 Creatinine 1.12 Est Cr Clr Drug Dosing 90.5 Est GFR ( Amer) 85.9 Est GFR (Non-Af Amer) 74.1 BUN/Creatinine Ratio 8.0 L Glucose 118 H POC Glucose 122 H 155 H Calcium 7.9 L Total Bilirubin 11.6 H Direct Bilirubin 4.6 H AST 72 H ALT 25 Alkaline Phosphatase 87 Total Protein 6.6 Albumin 2.4 L Globulin 4.2 H Albumin/Globulin Ratio 0.6 L Hepatitis A IgM Ab Hep B Core IgM Ab PG Care Time/CCT Total # of Minutes Spent Total Time Spent with Patient: Total time spent is greater than 50% in coordination of care (as documented) at patient's floor/unit and/or counseling patient: Coding Level of Care Code 83076 SUB INP/OBS CARE 3/50MIN Diagnoses Hepatic cirrhosis K70.31 Ascites presence: with ascites Hepatic cirrhosis type: alcoholic cirrhosis Alcoholic hepatitis K70.10 NATALY (acute kidney injury) N17.9 Type 2 diabetes mellitus E11.9 Obesity (BMI 30-39.9) E66.9 Congestive heart failure (CHF) I50.9 Alcoholic cardiomyopathy I42.6 Thrombocytopenia D69.6 Anemia D64.9 Anemia type: unspecified type (1) Hepatic cirrhosis Ascites presence: with ascites Hepatic cirrhosis type: alcoholic cirrhosis Qualified Code(s): K70.31 - Alcoholic cirrhosis of liver with ascites (9) Anemia Anemia type: unspecified type Qualified Code(s): D64.9 - Anemia, unspecified
[2024-01-15] MEDS: predniSONE 20 MG TAB PO SCH (17:17)
[2024-01-16 07:39] LABS: Hematocrit (blood only) 27.5 % (42.0-52.0); Hemoglobin 9.7 g/dl (14.0-18.0); Mean Corpuscular Hemoglobin 40.2 pg (25.0-34.0); Mean Corpuscular Hgb Conc 35.3 g/dL (32.0-36.0); Mean Corpuscular Volume 114.1 fL (80.0-100.0); Mean Platelet Volume 10.9 fL (9.4-12.4); Platelet Count 67 K/uL (130-400); RDW Coefficient of Variation 17.9 % (11.5-14.5); RDW Standard Deviation 74.7 fL (36.4-46.3); Red Blood Count 2.41 M/uL (4.70-6.10); White Blood Count 9.71 K/ul (4.8-10.8)
[2024-01-16 08:05] LABS: INR 1.8 (0.9-1.1); Partial Thromboplastin Ratio 1.3; Partial Thromboplastin Time 35 Seconds (21-31); Prothrombin Time 18.8 Seconds (9.0-12.0)
[2024-01-16 08:06] LABS: Albumin Globulin Ratio 0.6 (0.9-2); Albumin Level 2.4 gm/dl (3.4-5.0); BUN Creatinine Ratio 8.8 (10-20); Bilirubin Direct 3.7 mg/dl (0-0.2); Bilirubin,Total 10.8 mg/dl (0.2-1.0); Calcium 8.1 mg/dl (8.6-10.3); Creatinine Clr Calc Pharmacy 98.5 ml/min; Est GFR (African American) 96.1 ml/min; Est GFR (Non-African American) 82.9 ml/min; Globulin 4.3 gm/dl (2.5-4.0); Magnesium 1.5 mg/dl (1.7-2.4); Potassium 4.4 mmol/L (3.5-5.1); Total Protein 6.7 gm/dl (6.0-8.3)
[2024-01-16 08:11] LABS: ALC (manual) 0.29 K/uL (1.2-3.4); ANC (manual) 8.84 K/uL (1.4-6.5); Lymphocytes # (manual) 0.29 K/uL (1.2-3.4); Lymphocytes % (manual) 3 %; Macrocytosis Present; Metamyelocytes % (manual) 1 %; Monocytes # (manual) 0.49 K/uL (0.11-0.59); Monocytes % (manual) 5 %; Neutrophils # (manual) 8.84 K/uL (1.40-6.50); Neutrophils % (manual) 91 %
[2024-01-16] MEDS: THIAMINE HCL 100 MG TAB PO SCH (08:27)
[2024-01-16] MEDS: METOPROLOL SUCC 25MG EXT REL TAB PO SCH (08:27)
[2024-01-16] MEDS: FOLIC ACID 1 MG TAB PO SCH (08:27)
[2024-01-16] MEDS: MAGNESIUM OXIDE 400 MG TAB PO SCH (09:56)
--- NOTE | 2024-01-16 10:04 | Hospitalist Progress Note ---
Date of Service January 16, 2024 Assessment & Plan (1) Hepatic cirrhosis: (2) Alcoholic hepatitis: (3) NATALY (acute kidney injury): (4) Type 2 diabetes mellitus: (5) Obesity (BMI 30-39.9): (6) Congestive heart failure (CHF): (7) Alcoholic cardiomyopathy: (8) Thrombocytopenia: (9) Anemia: Plan 53-year-old male with past medical history of alcoholic cardiomyopathy, liver cirrhosis, alcohol use disorder, essential hypertension, type 2 diabetes mellitus who presented to the hospital for worsening jaundice and was also found to be in alcohol withdrawal #Alcoholic hepatitis #Liver cirrhosis due to to alcohol use #Alcohol use disorder with withdrawal #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 Ponce from [facility] regarding transfer on 01/15/24 Discussed case with director global intelligence and at this point they have declined taking patient in transfer and have given the following recommendations after reviewing all the labs and imaging with me on the phone 1. Start patient on prednisone 40 mg daily and calculate Lille score in 4 days and if there will score ratio from day 1 to day 4 is less than 0.45 then to continue prednisone 40 mg daily for 28 days otherwise to stop prednisone as there is no benefit 2. Have patient follow-up with director global intelligence Dr. Alonso as outpatient on discharge 3. Consider starting patient on baclofen 10 mg p.o. 3 times daily as some research has shown that he may benefit with alcohol use disorder 4. Alcohol cessation, low-sodium diet and nutrition consult and for patient to engage with outpatient resources for alcohol cessation 5. It is okay for patient from Dr. Ponce's point of view to be started on prednisone with the pending Hep A IgM Reduce Librium to 25 mg p.o. twice daily CIWA alcohol withdrawal protocol with Ativan Continue multivitamin plus thiamine plus folic acid Alcohol cessation counseling provided Patient is interested in engaging with inpatient alcohol rehab: Case management working with him Continue Protonix 40 mg IV twice daily Monitor CMP, INR/PTT and CBC daily #NATALY Resolved with IV fluids Monitor renal function and electrolytes Avoid nephrotoxic agents including NSAIDs #Alcohol related cardiomyopathy/chronic congestive heart failure with mildly reduced ejection fraction of 50% #Essential hypertension Echo from 01/14/2024 shows EF of 50% with no wall motion abnormality and moderate concentric LVH with mild mitral regurgitation Patient's blood pressure is running low normal and hence lisinopril has been held Avoid carvedilol with low blood pressure Increase Toprol-XL to 25 mg daily with hold parameters I/O monitoring Daily weights #Type 2 diabetes mellitus A1c is 4.4 Accu-Cheks before every meal and nightly with sliding scale insulin coverage Monitor glycemic control #Hypothyroidism Continue levothyroxine 137 mcg p.o. daily CODE STATUS: Full code DVT prophylaxis: Bilateral SCDs, unable to use chemical prophylaxis secondary dose thrombocytopenia Discharge planning to inpatient alcohol rehab once medically stable Care plan discussed with patient, nursing staff Admission and Anticipated Discharge Date Admission Date: January 13, 2024 Subjective Patient seen and examined Feels better today Bilirubin has improved Discussed my conversation with hepatology at [facility] yesterday with patient He denies any chest pain, shortness of breath, nausea, vomiting abdominal pain He had few loose stools yesterday but no diarrhea today He has received total of 4 mg of Ativan in the past 24 hours for withdrawal and AWSS scores have been between 1-7 Review of Systems Review of Systems: As per HPI Physical Exam Physical Exam: General: No acute distress Psych: Awake and alert HEENT: icteric sclera, moist oral mucosa CVS: Regular rate and rhythm Lungs: Bilateral air entry, no wheezing noted Abdomen: Soft, nontender, no rebound, no guarding Ext: No lower extremity edema, no calf tenderness Neuro: No focal motor deficits noted Results & Data Results & Data Vital Signs (Past 12 Hours) Vital Signs Temp Pulse Pulse Resp BP BP Pulse Ox 01/16/24 07:58 36.8 C 82 20 119/85 94 01/16/24 07:24 70 01/16/24 03:46 74 01/16/24 03:00 36.9 C 74 16 107/57 L 94 01/15/24 23:21 36.8 C 70 20 132/80 98 01/15/24 22:39 36.9 C 71 19 125/81 95 O2 Del Method 01/16/24 07:58 Room Air 01/16/24 07:24 01/16/24 03:46 01/16/24 03:00 Room Air 01/15/24 23:21 Room Air 01/15/24 22:39 Room Air Laboratory Results Laboratory Results - last 24 hr 01/13/24 01/15/24 01/15/24 Unknown 11:28 16:26 WBC RBC Hgb Hct MCV MCH MCHC RDW Std Deviation RDW Coeff of Uvaldo Plt Count MPV Neutrophils % (Manual) Lymphocytes % (Manual) Monocytes % (Manual) Metamyelocytes % (Man) Neutrophils # (Manual) Total Absolute Neuts Lymphocytes # (Manual) Total Abs Lymphocytes Monocytes # (Manual) Metamyelocytes # (Man) Macrocytosis PT INR APTT PTT Ratio Sodium Potassium Chloride Carbon Dioxide Anion Gap BUN Creatinine Est Cr Clr Drug Dosing Est GFR ( Amer) Est GFR (Non-Af Amer) BUN/Creatinine Ratio Glucose POC Glucose 155 H 118 H Calcium Magnesium Total Bilirubin Direct Bilirubin AST ALT Alkaline Phosphatase Total Protein Albumin Globulin Albumin/Globulin Ratio Hepatitis A IgM Ab NON-REACTIVE Hep B Core IgM Ab NON-REACTIVE 01/15/24 01/16/24 01/16/24 19:57 07:17 07:38 WBC 9.71 RBC 2.41 L Hgb 9.7 L Hct 27.5 L MCV 114.1 H MCH 40.2 H MCHC 35.3 RDW Std Deviation 74.7 H RDW Coeff of Uvaldo 17.9 H Plt Count 67 L MPV 10.9 Neutrophils % (Manual) 91 Lymphocytes % (Manual) 3 Monocytes % (Manual) 5 Metamyelocytes % (Man) 1 Neutrophils # (Manual) 8.84 H Total Absolute Neuts 8.84 H Lymphocytes # (Manual) 0.29 L Total Abs Lymphocytes 0.29 L Monocytes # (Manual) 0.49 Metamyelocytes # (Man) 0.10 H Macrocytosis Present PT 18.8 H INR 1.8 H APTT 35 H PTT Ratio 1.3 Sodium 135 L Potassium 4.4 Chloride 106 Carbon Dioxide 25 Anion Gap 4 BUN 9 Creatinine 1.02 Est Cr Clr Drug Dosing 98.5 Est GFR ( Amer) 96.1 Est GFR (Non-Af Amer) 82.9 BUN/Creatinine Ratio 8.8 L Glucose 162 H POC Glucose 204 H 150 H Calcium 8.1 L Magnesium 1.5 L Total Bilirubin 10.8 H Direct Bilirubin 3.7 H AST 59 H ALT 22 Alkaline Phosphatase 87 Total Protein 6.7 Albumin 2.4 L Globulin 4.3 H Albumin/Globulin Ratio 0.6 L Hepatitis A IgM Ab Hep B Core IgM Ab PG Care Time/CCT Total # of Minutes Spent Total Time Spent with Patient: Total time spent is greater than 50% in coordination of care (as documented) at patient's floor/unit and/or counseling patient: Coding Level of Care Code 16623 SUB INP/OBS CARE 3/50MIN Diagnoses Hepatic cirrhosis K70.31 Ascites presence: with ascites Hepatic cirrhosis type: alcoholic cirrhosis Alcoholic hepatitis K70.10 NATALY (acute kidney injury) N17.9 Type 2 diabetes mellitus E11.9 Obesity (BMI 30-39.9) E66.9 Congestive heart failure (CHF) I50.9 Alcoholic cardiomyopathy I42.6 Thrombocytopenia D69.6 Anemia D64.9 Anemia type: unspecified type (1) Hepatic cirrhosis Ascites presence: with ascites Hepatic cirrhosis type: alcoholic cirrhosis Qualified Code(s): K70.31 - Alcoholic cirrhosis of liver with ascites (9) Anemia Anemia type: unspecified type Qualified Code(s): D64.9 - Anemia, unspecified
--- NOTE | 2024-01-16 11:42 | Gastroenterology Progress Note ---
Date of Service January 16, 2024 Assessment & Plan (1) Alcoholic hepatitis: Plan: Patient is stable currently he does not have any itching he does not have any encephalopathy he appears comfortable he states his diet is also good at the current time I would 1. Monitor LFTs and INR serially 2. Abstain from alcohol in the future 3. Follow-up with hepatology as outpatient Thank you for allowing us to take part in the care of your patient we will continue to follow him with you Admission and Anticipated Discharge Date Admission Date: January 13, 2024 Subjective Patient is lying comfortably in the bed at the current time he denies any dysphagia or reflux nausea vomiting or abdominal pain he states he feels comfortable at the current time he does not have any itching he is awake alert and oriented and he is not having any confusion he appears quite comfortable at the current time. Review of Systems Review of Systems: A 10 point review of systems was done Physical Exam Constitutional: Well-developed well-nourished male appears comfortable at the current time. Eyes: Positive for icterus Neck: Supple Respiratory: normal respiratory effort, lungs clear to auscultation Cardiovascular: Rate/Rhythm: regular rate and regular rhythm Chest (Breasts): Additional Comments: Clear anteriorly Gastrointestinal (Abdomen): Soft no tenderness or masses appreciated Results & Data Results & Data Vital Signs (Past 12 Hours) Vital Signs Temp Pulse Pulse Resp BP BP Pulse Ox 01/16/24 11:36 36.4 C L 72 18 139/84 96 01/16/24 11:32 36.9 C 82 18 127/83 94 01/16/24 10:02 01/16/24 07:58 36.8 C 82 20 119/85 94 01/16/24 07:24 70 01/16/24 03:46 74 01/16/24 03:00 36.9 C 74 16 107/57 L 94 O2 Del Method 01/16/24 11:36 Room Air 01/16/24 11:32 Room Air 01/16/24 10:02 Room Air 01/16/24 07:58 Room Air 01/16/24 07:24 01/16/24 03:46 01/16/24 03:00 Room Air PG Care Time/CCT Total # of Minutes Spent Total Time Spent with Patient: Total time spent is greater than 50% in coordination of care (as documented) at patient's floor/unit and/or counseling patient: Coding Level of Care Code 00420 SUB INP/OBS CARE MIN Diagnoses Alcoholic hepatitis K70.10
[2024-01-16] MEDS: MAGNESIUM SULFATE / D5W 1 GM/100 ML BAG IV ONE (15:34)
[2024-01-16] MEDS: GABAPENTIN 300 MG CAP PO ONE (15:34)
[2024-01-16] MEDS: chlordiazePOXIDE HCl 25 MG CAP PO SCH (20:12)
[2024-01-17] MEDS: LORazepam 2 MG/1 ML VIAL IV STA (00:52)
[2024-01-17 06:24] LABS: Basophils # (auto) 0.02 K/uL (0.00-0.20); Basophils % (auto) 0.2 %; Eosinophils # (auto) 0.11 K/uL (0.00-0.50); Eosinophils % (auto) 0.9 %; Hematocrit (blood only) 27.3 % (42.0-52.0); Hemoglobin 9.4 g/dl (14.0-18.0); Immature Granulocytes # (auto) 0.15 K/uL (0.01-0.20); Immature Granulocytes % (auto) 1.2 %; Lymphocytes # (auto) 1.57 K/uL (1.20-3.40); Mean Corpuscular Hemoglobin 39.7 pg (25.0-34.0); Mean Corpuscular Hgb Conc 34.4 g/dL (32.0-36.0); Mean Corpuscular Volume 115.2 fL (80.0-100.0); Mean Platelet Volume 10.8 fL (9.4-12.4); Monocytes # (auto) 0.96 K/uL (0.11-0.59); Monocytes % (auto) 7.9 %; Neutrophils # (auto) 9.28 K/uL (1.40-6.50); Neutrophils % (auto) 76.8 %; Nucleated RBC # (auto) 0.04 K/uL (0.00-0.12); Nucleated RBC % (auto) 0.3 %; Platelet Count 86 K/uL (130-400); RDW Coefficient of Variation 18.5 % (11.5-14.5); RDW Standard Deviation 76.3 fL (36.4-46.3); Red Blood Count 2.37 M/uL (4.70-6.10); White Blood Count 12.09 K/ul (4.8-10.8)
[2024-01-17 06:48] LABS: Albumin Globulin Ratio 0.6 (0.9-2); Albumin Level 2.4 gm/dl (3.4-5.0); BUN Creatinine Ratio 10.6 (10-20); Bilirubin Direct 3.4 mg/dl (0-0.2); Bilirubin,Total 9.1 mg/dl (0.2-1.0); Calcium 8.2 mg/dl (8.6-10.3); Creatinine Clr Calc Pharmacy 96.6 ml/min; Est GFR (African American) 93.9 ml/min; Globulin 4.3 gm/dl (2.5-4.0); Magnesium 1.8 mg/dl (1.7-2.4); Potassium 4.2 mmol/L (3.5-5.1); Total Protein 6.7 gm/dl (6.0-8.3)
[2024-01-17 06:52] LABS: Macrocytosis Present
[2024-01-17 06:56] LABS: INR 1.8 (0.9-1.1); Partial Thromboplastin Ratio 1.2; Partial Thromboplastin Time 33 Seconds (21-31); Prothrombin Time 18.6 Seconds (9.0-12.0)
[2024-01-17] MEDS: METOPROLOL SUCC 25MG EXT REL TAB PO SCH (08:13)
--- NOTE | 2024-01-17 10:47 | Gastroenterology Progress Note ---
Date of Service January 17, 2024 Assessment & Plan (1) Alcoholic hepatitis: Plan: Alcoholic hepatitis The patient is clinically stable his blood bilirubin has following today's INR is also stable transaminases are not very elevated with only mild elevation of the AST he does not have any encephalopathy he is on prednisone 40 at the current time I would 1. Monitor LFTs and INR 2. Do a Isabella score on day 7 of admission 3. Consult nutrition as essentially all patients with alcoholic hepatitis have some degree of malnutrition 4. Watch for alcohol withdrawal Thank you for allowing us to take part in the care of your patient we will continue to follow him with you Admission and Anticipated Discharge Date Admission Date: January 13, 2024 Subjective Patient appears comfortable he denies any dysphagia or reflux nausea or vomiting and no abdominal pain essentially from the GI tract he is asymptomatic he states he feels a little wobbly today when he tries to walk but other than that he is pretty comfortable Review of Systems Review of Systems: A 10 point review of systems was done Physical Exam Constitutional: WD/WN, vitals as above Respiratory: normal respiratory effort, lungs clear to auscultation Cardiovascular: RRR, no murmur, no edema Gastrointestinal (Abdomen): normal bowel sounds, soft, nontender, no hepatosplenomegaly Results & Data Results & Data Vital Signs (Past 12 Hours) Vital Signs Temp Pulse Resp BP Pulse Ox O2 Del Method 01/17/24 07:05 36.8 C 74 18 112/72 93 Room Air 01/17/24 04:13 36.6 C 74 20 119/68 93 Room Air PG Care Time/CCT Total # of Minutes Spent Total Time Spent with Patient: Total time spent is greater than 50% in coordination of care (as documented) at patient's floor/unit and/or counseling patient: Coding Level of Care Code 30078 SUB INP/OBS CARE 2/35MIN Diagnoses Alcoholic hepatitis K70.10
--- NOTE | 2024-01-17 12:21 | Hospitalist Progress Note ---
Date of Service January 17, 2024 Assessment & Plan (1) Hepatic cirrhosis: (2) Alcoholic hepatitis: (3) NATALY (acute kidney injury): (4) Type 2 diabetes mellitus: (5) Obesity (BMI 30-39.9): (6) Congestive heart failure (CHF): (7) Alcoholic cardiomyopathy: (8) Thrombocytopenia: (9) Anemia: Plan 53-year-old male with past medical history of alcoholic cardiomyopathy, liver cirrhosis, alcohol use disorder, essential hypertension, type 2 diabetes mellitus who presented to the hospital for worsening jaundice and was also found to be in alcohol withdrawal #Alcoholic hepatitis #Liver cirrhosis due to to alcohol use #Alcohol use disorder with withdrawal #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 Ponce from [facility] regarding transfer on 01/15/24 Discussed case with mortuary operations manager and at this point they have declined taking patient in transfer and have given the following recommendations after reviewing all the labs and imaging with me on the phone 1. Start patient on prednisone 40 mg daily and calculate Lille score in 4 days and if there will score ratio from day 1 to day 4 is less than 0.45 then to continue prednisone 40 mg daily for 28 days otherwise to stop prednisone as there is no benefit 2. Have patient follow-up with mortuary operations manager Dr. Alonso as outpatient on discharge 3. Consider starting patient on baclofen 10 mg p.o. 3 times daily as some research has shown that he may benefit with alcohol use disorder 4. Alcohol cessation, low-sodium diet and nutrition consult and for patient to engage with outpatient resources for alcohol cessation 5. It is okay for patient from Dr. Ponce's point of view to be started on prednisone with the pending Hep A IgM Dr. Smith Ruiz from gastroenterology is also following the patient and has recommended a dietitian consult and also is recommended checking the Lille score at day 7 Reduce Librium to 15 mg p.o. twice daily CIWA alcohol withdrawal protocol with Ativan Continue multivitamin plus thiamine plus folic acid Alcohol cessation counseling provided Patient is interested in engaging with inpatient alcohol rehab: Case management working with him Continue Protonix 40 mg IV twice daily Monitor CMP, INR/PTT and CBC daily #NATALY Resolved with IV fluids Monitor renal function and electrolytes Avoid nephrotoxic agents including NSAIDs #Alcohol related cardiomyopathy/chronic congestive heart failure with mildly reduced ejection fraction of 50% #Essential hypertension Echo from 01/14/2024 shows EF of 50% with no wall motion abnormality and moderate concentric LVH with mild mitral regurgitation Patient's blood pressure is running low normal and hence lisinopril has been held Avoid carvedilol with low blood pressure Continue Toprol-XL to 25 mg daily with hold parameters I/O monitoring Daily weights #Type 2 diabetes mellitus A1c is 4.4 Accu-Cheks before every meal and nightly with sliding scale insulin coverage Monitor glycemic control #Hypothyroidism Continue levothyroxine 137 mcg p.o. daily CODE STATUS: Full code DVT prophylaxis: Bilateral SCDs, unable to use chemical prophylaxis secondary dose thrombocytopenia Discharge planning to inpatient alcohol rehab once medically stable Care plan discussed with patient, nursing staff Admission and Anticipated Discharge Date Admission Date: January 13, 2024 Subjective Patient seen and examined Labs reviewed Patient states he had some cramping in his legs which was helped by IV magnesium He feels much better today Appetite is slowly improving GI is recommended dietitian consult: Patient is eager to meet with dietitian for diet advice He denies any nausea, vomiting or abdominal pain He is tearful about his journey with alcohol cirrhosis and wants to go to inpatient alcohol rehab Review of Systems Review of Systems: As per HPI Physical Exam Physical Exam: General: No acute distress Psych: Awake and alert HEENT: icteric sclera, moist oral mucosa CVS: Regular rate and rhythm Lungs: Bilateral air entry, no wheezing noted Abdomen: Soft, nontender, no rebound, no guarding Ext: No lower extremity edema, no calf tenderness Neuro: No focal motor deficits noted Results & Data Results & Data Vital Signs (Past 12 Hours) Vital Signs Temp Pulse Resp BP Pulse Ox O2 Del Method 01/17/24 11:54 36.9 C 73 18 113/70 94 Room Air 01/17/24 07:05 36.8 C 74 18 112/72 93 Room Air 01/17/24 04:13 36.6 C 74 20 119/68 93 Room Air Laboratory Results Laboratory Results - last 24 hr 01/16/24 01/16/24 01/17/24 16:42 20:24 06:05 WBC 12.09 H RBC 2.37 L Hgb 9.4 L Hct 27.3 L MCV 115.2 H MCH 39.7 H MCHC 34.4 RDW Std Deviation 76.3 H RDW Coeff of Uvaldo 18.5 H Plt Count 86 L MPV 10.8 Immature Gran % (Auto) 1.2 Neut % (Auto) 76.8 Lymph % (Auto) 13.0 [place] % (Auto) 7.9 Eos % (Auto) 0.9 Baso % (Auto) 0.2 Neut # (Auto) 9.28 H Lymph # (Auto) 1.57 [place] # (Auto) 0.96 H Eos # (Auto) 0.11 Baso # (Auto) 0.02 Immature Gran # (Auto) 0.15 Absolute Nucleated RBC 0.04 Nucleated RBC % (auto) 0.3 Macrocytosis Present PT 18.6 H INR 1.8 H APTT 33 H PTT Ratio 1.2 Sodium 137 Potassium 4.2 Chloride 107 Carbon Dioxide 25 Anion Gap 5 BUN 11 Creatinine 1.04 Est Cr Clr Drug Dosing 96.6 Est GFR ( Amer) 93.9 Est GFR (Non-Af Amer) 81.0 BUN/Creatinine Ratio 10.6 Glucose 127 H POC Glucose 212 H 154 H Calcium 8.2 L Magnesium 1.8 Total Bilirubin 9.1 H Direct Bilirubin 3.4 H AST 53 H ALT 23 Alkaline Phosphatase 94 Total Protein 6.7 Albumin 2.4 L Globulin 4.3 H Albumin/Globulin Ratio 0.6 L 01/17/24 01/17/24 07:53 11:52 WBC RBC Hgb Hct MCV MCH MCHC RDW Std Deviation RDW Coeff of Uvaldo Plt Count MPV Immature Gran % (Auto) Neut % (Auto) Lymph % (Auto) [place] % (Auto) Eos % (Auto) Baso % (Auto) Neut # (Auto) Lymph # (Auto) [place] # (Auto) Eos # (Auto) Baso # (Auto) Immature Gran # (Auto) Absolute Nucleated RBC Nucleated RBC % (auto) Macrocytosis PT INR APTT PTT Ratio Sodium Potassium Chloride Carbon Dioxide Anion Gap BUN Creatinine Est Cr Clr Drug Dosing Est GFR ( Amer) Est GFR (Non-Af Amer) BUN/Creatinine Ratio Glucose POC Glucose 117 H 144 H Calcium Magnesium Total Bilirubin Direct Bilirubin AST ALT Alkaline Phosphatase Total Protein Albumin Globulin Albumin/Globulin Ratio PG Care Time/CCT Total # of Minutes Spent Total Time Spent with Patient: Total time spent is greater than 50% in coordination of care (as documented) at patient's floor/unit and/or counseling patient: Coding Level of Care Code 43212 SUB INP/OBS CARE MIN Diagnoses Hepatic cirrhosis K70.31 Ascites presence: with ascites Hepatic cirrhosis type: alcoholic cirrhosis Alcoholic hepatitis K70.10 NATALY (acute kidney injury) N17.9 Type 2 diabetes mellitus E11.9 Obesity (BMI 30-39.9) E66.9 Congestive heart failure (CHF) I50.9 Alcoholic cardiomyopathy I42.6 Thrombocytopenia D69.6 Anemia D64.9 Anemia type: unspecified type (1) Hepatic cirrhosis Ascites presence: with ascites Hepatic cirrhosis type: alcoholic cirrhosis Qualified Code(s): K70.31 - Alcoholic cirrhosis of liver with ascites (9) Anemia Anemia type: unspecified type Qualified Code(s): D64.9 - Anemia, unspecified
[2024-01-17] MEDS ORDERED: diphenhydrAMINE Capsule 25 MG CAP PO PRN (14:11)
[2024-01-17] MEDS: LORATADINE 10 MG TAB PO SCH (15:06)
[2024-01-17] MEDS: MAGNESIUM SULFATE / D5W 1 GM/100 ML BAG IV ONE (17:41)
[2024-01-17] MEDS: chlordiazePOXIDE HCl 5 MG CAP PO SCH (20:48)
[2024-01-18 06:47] LABS: Basophils # (auto) 0.02 K/uL (0.00-0.20); Basophils % (auto) 0.2 %; Eosinophils # (auto) 0.11 K/uL (0.00-0.50); Eosinophils % (auto) 0.9 %; Hematocrit (blood only) 28.6 % (42.0-52.0); Hemoglobin 9.8 g/dl (14.0-18.0); Immature Granulocytes # (auto) 0.22 K/uL (0.01-0.20); Immature Granulocytes % (auto) 1.8 %; Lymphocytes # (auto) 1.73 K/uL (1.20-3.40); Lymphocytes % (auto) 13.9 %; Mean Corpuscular Hgb Conc 34.3 g/dL (32.0-36.0); Mean Corpuscular Volume 116.7 fL (80.0-100.0); Mean Platelet Volume 10.2 fL (9.4-12.4); Monocytes # (auto) 0.85 K/uL (0.11-0.59); Monocytes % (auto) 6.8 %; Neutrophils # (auto) 9.51 K/uL (1.40-6.50); Neutrophils % (auto) 76.4 %; Nucleated RBC # (auto) 0.06 K/uL (0.00-0.12); Nucleated RBC % (auto) 0.5 %; Platelet Count 96 K/uL (130-400); RDW Coefficient of Variation 18.8 % (11.5-14.5); RDW Standard Deviation 79.7 fL (36.4-46.3); Red Blood Count 2.45 M/uL (4.70-6.10); White Blood Count 12.44 K/ul (4.8-10.8)
[2024-01-18 07:04] LABS: Albumin Globulin Ratio 0.6 (0.9-2); Albumin Level 2.5 gm/dl (3.4-5.0); Bilirubin,Total 7.8 mg/dl (0.2-1.0); Calcium 8.5 mg/dl (8.6-10.3); Creatinine Clr Calc Pharmacy 92.4 ml/min; Est GFR (African American) 88.7 ml/min; Est GFR (Non-African American) 76.5 ml/min; Globulin 4.4 gm/dl (2.5-4.0); Magnesium 1.8 mg/dl (1.7-2.4); Total Protein 6.9 gm/dl (6.0-8.3)
[2024-01-18 07:16] LABS: Echinocytes 1+; Macrocytosis Present; Platelet Estimate Decreased (Normal); Polychromasia 1+
[2024-01-18 07:32] LABS: INR 1.8 (0.9-1.1); Partial Thromboplastin Ratio 1.2; Partial Thromboplastin Time 31 Seconds (21-31); Prothrombin Time 18.2 Seconds (9.0-12.0)
--- NOTE | 2024-01-18 11:38 | Gastroenterology Progress Note ---
Date of Service January 18, 2024 Assessment & Plan (1) Alcoholic hepatitis: Plan: 53 year old male with ETOH cirrhosis, MELD 21, ETOH hepatitis Barb 36 on prednisone for ETOH hepatitis - Continue Prednisolone - Calculate Lille score day 7 - ETOH rehabilitation recommended - Continue follow up with hepatology - MELD labs every 6 months - ABD imaging w/ AFP every 6 months - EGD every 1-2 years - No ETOH - No NSAIDs - Avoid hepatotoxin - Low NA diet, less than 2G daily - Less than 2G acetaminophen containing products daily I spent a total of 55 minutes on the date of service in review of patient's record, and previously obtained information in person and appropriate medical visit, discussion and education of plan, with patient and/or caregiver, placing orders for tests/referral/procedures as medically necessary and documentation of pertinent clinical information in patient's medical records for their visit today. Admission and Anticipated Discharge Date Admission Date: January 13, 2024 Supervising Physician Co-Signing Physician Notes I examined the patient and reviewed patient's chart , laboratory data and imaging studies. I agree with with assessment and plan of care as suggested by advanced practice provider. The patient is being discharged to inpatient alcohol rehab. Continue prednisone or prednisolone 40 mg a day for total of 4 weeks. Follow with with patient's garage hand. Subjective Feeling well. Denies abd pain, nausea, vomiting. Moving stools - reports brown stools. Is opening frustrated with his ETOH consumption. Suggests he was able to decrease his intake from a 6-pack to 2-beers daily. Has not been able to fully maintain sobriety. Is hopeful he can achieve sobriety through rehabilitation program. Review of Systems Review of Systems: All other findings negative except as noted in HPI. Physical Exam Constitutional: WD/WN, vitals as above Respiratory: normal respiratory effort, lungs clear to auscultation Cardiovascular: RRR, no murmur, no edema Gastrointestinal (Abdomen): normal bowel sounds, soft, nontender, no hepatosplenomegaly Skin: no rashes, warm and dry + jaundice Results & Data Results & Data Vital Signs (Past 12 Hours) Vital Signs Temp Pulse Resp BP Pulse Ox O2 Del Method 01/18/24 07:41 36.7 C 69 16 120/65 95 Room Air Laboratory Results 01/18/24 01/18/24 01/17/24 Range/Units 07:31 06:31 20:40 WBC 12.44 H (4.8-10.8) K/ul RBC 2.45 L (4.70-6.10) M/uL Hgb 9.8 L (14.0-18.0) g/dl Hct 28.6 L (42.0-52.0) % MCV 116.7 H (80.0-100.0) fL MCH 40.0 H (25.0-34.0) pg MCHC 34.3 (32.0-36.0) g/dL RDW Std Deviation 79.7 H (36.4-46.3) fL RDW Coeff of Uvaldo 18.8 H (11.5-14.5) % Plt Count 96 L (130-400) K/uL MPV 10.2 (9.4-12.4) fL Immature Gran % (Auto) 1.8 % Neut % (Auto) 76.4 % Lymph % (Auto) 13.9 % [place] % (Auto) 6.8 % Eos % (Auto) 0.9 % Baso % (Auto) 0.2 % Neut # (Auto) 9.51 H (1.40-6.50) K/uL Lymph # (Auto) 1.73 (1.20-3.40) K/uL [place] # (Auto) 0.85 H (0.11-0.59) K/uL Eos # (Auto) 0.11 (0.00-0.50) K/uL Baso # (Auto) 0.02 (0.00-0.20) K/uL Immature Gran # (Auto) 0.22 H (0.01-0.20) K/uL Absolute Nucleated RBC 0.06 (0.00-0.12) K/uL Nucleated RBC % (auto) 0.5 % Platelet Estimate Decreased L (Normal) Polychromasia 1+ Macrocytosis Present Echinocytes 1+ PT 18.2 H (9.0-12.0) Seconds INR 1.8 H (0.9-1.1) APTT 31 (21-31) Seconds PTT Ratio 1.2 Sodium 137 (136-145) mmol/L Potassium 4.0 (3.5-5.1) mmol/L Chloride 106 (98-107) mmol/L Carbon Dioxide 26 (21-32) mmol/L Anion Gap 5 (3-11) BUN 12 (6-23) mg/dl Creatinine 1.09 (0.6-1.4) mg/dl Est Cr Clr Drug Dosing 92.4 ml/min Est GFR ( Amer) 88.7 ml/min Est GFR (Non-Af Amer) 76.5 ml/min BUN/Creatinine Ratio 11.0 (10-20) Glucose 130 H (70-99(Fasting)) mg/dl POC Glucose 118 H 201 H (70-99) mg/dl Calcium 8.5 L (8.6-10.3) mg/dl Magnesium 1.8 (1.7-2.4) mg/dl Total Bilirubin 7.8 H (0.2-1.0) mg/dl AST 53 H (13-39) U/L ALT 27 (7-52) U/L Alkaline Phosphatase 101 (34-104) U/L Total Protein 6.9 (6.0-8.3) gm/dl Albumin 2.5 L (3.4-5.0) gm/dl Globulin 4.4 H (2.5-4.0) gm/dl Albumin/Globulin Ratio 0.6 L (0.9-2) 01/17/24 01/17/24 Range/Units 16:51 11:52 WBC (4.8-10.8) K/ul RBC (4.70-6.10) M/uL Hgb (14.0-18.0) g/dl Hct (42.0-52.0) % MCV (80.0-100.0) fL MCH (25.0-34.0) pg MCHC (32.0-36.0) g/dL RDW Std Deviation (36.4-46.3) fL RDW Coeff of Uvaldo (11.5-14.5) % Plt Count (130-400) K/uL MPV (9.4-12.4) fL Immature Gran % (Auto) % Neut % (Auto) % Lymph % (Auto) % [place] % (Auto) % Eos % (Auto) % Baso % (Auto) % Neut # (Auto) (1.40-6.50) K/uL Lymph # (Auto) (1.20-3.40) K/uL [place] # (Auto) (0.11-0.59) K/uL Eos # (Auto) (0.00-0.50) K/uL Baso # (Auto) (0.00-0.20) K/uL Immature Gran # (Auto) (0.01-0.20) K/uL Absolute Nucleated RBC (0.00-0.12) K/uL Nucleated RBC % (auto) % Platelet Estimate (Normal) Polychromasia Macrocytosis Echinocytes PT (9.0-12.0) Seconds INR (0.9-1.1) APTT (21-31) Seconds PTT Ratio Sodium (136-145) mmol/L Potassium (3.5-5.1) mmol/L Chloride (98-107) mmol/L Carbon Dioxide (21-32) mmol/L Anion Gap (3-11) BUN (6-23) mg/dl Creatinine (0.6-1.4) mg/dl Est Cr Clr Drug Dosing ml/min Est GFR ( Amer) ml/min Est GFR (Non-Af Amer) ml/min BUN/Creatinine Ratio (10-20) Glucose (70-99(Fasting)) mg/dl POC Glucose 157 H 144 H (70-99) mg/dl Calcium (8.6-10.3) mg/dl Magnesium (1.7-2.4) mg/dl Total Bilirubin (0.2-1.0) mg/dl AST (13-39) U/L ALT (7-52) U/L Alkaline Phosphatase (34-104) U/L Total Protein (6.0-8.3) gm/dl Albumin (3.4-5.0) gm/dl Globulin (2.5-4.0) gm/dl Albumin/Globulin Ratio (0.9-2) PG Care Time/CCT Total # of Minutes Spent Total Time Spent with Patient: Total time spent is greater than 50% in coordination of care (as documented) at patient's floor/unit and/or counseling patient: Coding Level of Care Code 59850 SUB INP/OBS CARE 3/50MIN Diagnoses Alcoholic hepatitis K70.10
--- NOTE | 2024-01-18 13:31 | Hospitalist Progress Note ---
Date of Service January 18, 2024 Assessment & Plan (1) Hepatic cirrhosis: (2) Alcoholic hepatitis: (3) NATALY (acute kidney injury): (4) Type 2 diabetes mellitus: (5) Obesity (BMI 30-39.9): (6) Congestive heart failure (CHF): (7) Alcoholic cardiomyopathy: (8) Thrombocytopenia: (9) Anemia: Plan 53-year-old male with past medical history of alcoholic cardiomyopathy, liver cirrhosis, alcohol use disorder, essential hypertension, type 2 diabetes mellitus who presented to the hospital for worsening jaundice and was also found to be in alcohol withdrawal #Alcoholic hepatitis #Liver cirrhosis due to to alcohol use #Alcohol use disorder with withdrawal #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 Ponce from [facility] regarding transfer on 01/15/24 Discussed case with gmat instructor and at this point they have declined taking patient in transfer and have given the following recommendations after reviewing all the labs and imaging with me on the phone 1. Start patient on prednisone 40 mg daily and calculate Lille score in 4 days and if there will score ratio from day 1 to day 4 is less than 0.45 then to continue prednisone 40 mg daily for 28 days otherwise to stop prednisone as there is no benefit: 2. Have patient follow-up with gmat instructor Dr. Alonso as outpatient on discharge 3. Consider starting patient on baclofen 10 mg p.o. 3 times daily as some research has shown that he may benefit with alcohol use disorder 4. Alcohol cessation, low-sodium diet and nutrition consult and for patient to engage with outpatient resources for alcohol cessation 5. It is okay for patient from Dr. Ponce's point of view to be started on prednisone with the pending Hep A IgM Dr. Smith Ruiz from gastroenterology is also following the patient and has recommended a dietitian consult and also is recommended checking the Lille score at day 7 Lille score day 4 is 0.265: Good prognosis with score less than 0.4 by predicting a 6-month survival of 85% Patient to continue with corticosteroids prednisone 40 mg daily for total of 28 days: 01/15/2024 to February 11, 2024 (day 08/15) Reduce Librium to 10 mg p.o. twice daily [place] alcohol withdrawal protocol with Ativan Continue multivitamin plus thiamine plus folic acid Alcohol cessation counseling provided Patient is interested in engaging with inpatient alcohol rehab: Case management working with him Continue Protonix 40 mg IV twice daily Monitor CMP, INR/PTT and CBC daily #NATALY Resolved with IV fluids Monitor renal function and electrolytes Avoid nephrotoxic agents including NSAIDs #Alcohol related cardiomyopathy/chronic congestive heart failure with mildly reduced ejection fraction of 50% #Essential hypertension Echo from 01/14/2024 shows EF of 50% with no wall motion abnormality and moderate concentric LVH with mild mitral regurgitation Patient's blood pressure is running low normal and hence lisinopril has been held Avoid carvedilol with low blood pressure Continue Toprol-XL to 25 mg daily with hold parameters I/O monitoring Daily weights #Type 2 diabetes mellitus A1c is 4.4 Accu-Cheks before every meal and nightly with sliding scale insulin coverage Monitor glycemic control #Hypothyroidism Continue levothyroxine 137 mcg p.o. daily CODE STATUS: Full code DVT prophylaxis: Bilateral SCDs, unable to use chemical prophylaxis secondary dose thrombocytopenia Discharge planning to inpatient alcohol rehab likely tomorrow: Patient is medically stable for discharge to inpatient alcohol rehab Care plan discussed with patient, nursing staff and case management Admission and Anticipated Discharge Date Admission Date: January 13, 2024 Subjective Patient seen and examined Labs reviewed Patient is ambulating to the bathroom Overall feels better Patient states he spoke with someone from alcohol rehab center and his contemplating between inpatient and outpatient rehab but is leaning towards inpatient rehab Denies any fever, chills, chest pain or shortness of breath Review of Systems Review of Systems: As per HPI Physical Exam Physical Exam: General: No acute distress Psych: Awake and alert HEENT: icteric sclera, moist oral mucosa CVS: Regular rate and rhythm Lungs: Bilateral air entry, no wheezing noted Abdomen: Soft, nontender, no rebound, no guarding Ext: No lower extremity edema, no calf tenderness Neuro: No focal motor deficits noted Results & Data Results & Data Vital Signs (Past 12 Hours) Vital Signs Temp Pulse Resp BP Pulse Ox O2 Del Method 01/18/24 07:41 36.7 C 69 16 120/65 95 Room Air Laboratory Results Laboratory Results - last 24 hr 01/17/24 01/17/24 01/18/24 16:51 20:40 06:31 WBC 12.44 H RBC 2.45 L Hgb 9.8 L Hct 28.6 L MCV 116.7 H MCH 40.0 H MCHC 34.3 RDW Std Deviation 79.7 H RDW Coeff of Uvaldo 18.8 H Plt Count 96 L MPV 10.2 Immature Gran % (Auto) 1.8 Neut % (Auto) 76.4 Lymph % (Auto) 13.9 [place] % (Auto) 6.8 Eos % (Auto) 0.9 Baso % (Auto) 0.2 Neut # (Auto) 9.51 H Lymph # (Auto) 1.73 [place] # (Auto) 0.85 H Eos # (Auto) 0.11 Baso # (Auto) 0.02 Immature Gran # (Auto) 0.22 H Absolute Nucleated RBC 0.06 Nucleated RBC % (auto) 0.5 Platelet Estimate Decreased L Polychromasia 1+ Macrocytosis Present Echinocytes 1+ PT 18.2 H INR 1.8 H APTT 31 PTT Ratio 1.2 Sodium 137 Potassium 4.0 Chloride 106 Carbon Dioxide 26 Anion Gap 5 BUN 12 Creatinine 1.09 Est Cr Clr Drug Dosing 92.4 Est GFR ( Amer) 88.7 Est GFR (Non-Af Amer) 76.5 BUN/Creatinine Ratio 11.0 Glucose 130 H POC Glucose 157 H 201 H Calcium 8.5 L Magnesium 1.8 Total Bilirubin 7.8 H AST 53 H ALT 27 Alkaline Phosphatase 101 Total Protein 6.9 Albumin 2.5 L Globulin 4.4 H Albumin/Globulin Ratio 0.6 L 01/18/24 01/18/24 07:31 11:17 WBC RBC Hgb Hct MCV MCH MCHC RDW Std Deviation RDW Coeff of Uvaldo Plt Count MPV Immature Gran % (Auto) Neut % (Auto) Lymph % (Auto) [place] % (Auto) Eos % (Auto) Baso % (Auto) Neut # (Auto) Lymph # (Auto) [place] # (Auto) Eos # (Auto) Baso # (Auto) Immature Gran # (Auto) Absolute Nucleated RBC Nucleated RBC % (auto) Platelet Estimate Polychromasia Macrocytosis Echinocytes PT INR APTT PTT Ratio Sodium Potassium Chloride Carbon Dioxide Anion Gap BUN Creatinine Est Cr Clr Drug Dosing Est GFR ( Amer) Est GFR (Non-Af Amer) BUN/Creatinine Ratio Glucose POC Glucose 118 H 197 H Calcium Magnesium Total Bilirubin AST ALT Alkaline Phosphatase Total Protein Albumin Globulin Albumin/Globulin Ratio PG Care Time/CCT Total # of Minutes Spent Total Time Spent with Patient: Total time spent is greater than 50% in coordination of care (as documented) at patient's floor/unit and/or counseling patient: Coding Level of Care Code 23352 SUB INP/OBS CARE 2/35MIN Diagnoses Hepatic cirrhosis K70.31 Ascites presence: with ascites Hepatic cirrhosis type: alcoholic cirrhosis Alcoholic hepatitis K70.10 NATALY (acute kidney injury) N17.9 Type 2 diabetes mellitus E11.9 Obesity (BMI 30-39.9) E66.9 Congestive heart failure (CHF) I50.9 Alcoholic cardiomyopathy I42.6 Thrombocytopenia D69.6 Anemia D64.9 Anemia type: unspecified type (1) Hepatic cirrhosis Ascites presence: with ascites Hepatic cirrhosis type: alcoholic cirrhosis Qualified Code(s): K70.31 - Alcoholic cirrhosis of liver with ascites (9) Anemia Anemia type: unspecified type Qualified Code(s): D64.9 - Anemia, unspecified
[2024-01-18] MEDS: hydrOXYzine HCl 25 MG TAB PO PRN (18:25)
[2024-01-19 07:33] LABS: Hematocrit (blood only) 28.9 % (42.0-52.0); Hemoglobin 9.8 g/dl (14.0-18.0); Mean Corpuscular Hemoglobin 39.8 pg (25.0-34.0); Mean Corpuscular Hgb Conc 33.9 g/dL (32.0-36.0); Mean Corpuscular Volume 117.5 fL (80.0-100.0); Mean Platelet Volume 10.8 fL (9.4-12.4); Nucleated RBC # (auto) 0.06 K/uL (0.00-0.12); Nucleated RBC % (auto) 0.6 %; Platelet Count 89 K/uL (130-400); RDW Coefficient of Variation 18.6 % (11.5-14.5); RDW Standard Deviation 79.9 fL (36.4-46.3); Red Blood Count 2.46 M/uL (4.70-6.10); White Blood Count 10.74 K/ul (4.8-10.8)
[2024-01-19 07:47] LABS: Albumin Globulin Ratio 0.5 (0.9-2); Albumin Level 2.4 gm/dl (3.4-5.0); BUN Creatinine Ratio 14.3 (10-20); Bilirubin,Total 7.6 mg/dl (0.2-1.0); Calcium 8.6 mg/dl (8.6-10.3); Creatinine Clr Calc Pharmacy 102.8 ml/min; Est GFR (African American) 100.9 ml/min; Est GFR (Non-African American) 87.1 ml/min; Globulin 4.5 gm/dl (2.5-4.0); Magnesium 1.8 mg/dl (1.7-2.4); Potassium 3.9 mmol/L (3.5-5.1); Total Protein 6.9 gm/dl (6.0-8.3)
[2024-01-19 07:52] LABS: Acanthocytes 1+; Basophils # (auto) 0.03 K/uL (0.00-0.20); Basophils % (auto) 0.3 %; Eosinophils # (auto) 0.17 K/uL (0.00-0.50); Eosinophils % (auto) 1.6 %; Immature Granulocytes # (auto) 0.16 K/uL (0.01-0.20); Immature Granulocytes % (auto) 1.5 %; Lymphocytes # (auto) 1.77 K/uL (1.20-3.40); Lymphocytes % (auto) 16.5 %; Macrocytosis Present; Monocytes # (auto) 0.91 K/uL (0.11-0.59); Monocytes % (auto) 8.5 %; Neutrophils % (auto) 71.6 %; Polychromasia 1+
[2024-01-19 07:54] LABS: INR 1.8 (0.9-1.1); Partial Thromboplastin Ratio 1.1; Partial Thromboplastin Time 30 Seconds (21-31); Prothrombin Time 18.5 Seconds (9.0-12.0)
[2024-01-19 07:55] VITALS: RESP 18
[2024-01-19 13:51] VITALS: TEMP 99.3; O2SAT 94
--- NOTE | 2024-01-19 15:46 | Discharge Summary ---
Discharge Summary Date of Service January 19, 2024 Principal Dx & Hospital Course #1 = Principal Diagnosis (1) Hepatic cirrhosis: (2) Alcoholic hepatitis: (3) NATALY (acute kidney injury): (4) Type 2 diabetes mellitus: (5) Obesity (BMI 30-39.9): (6) Congestive heart failure (CHF): (7) Alcoholic cardiomyopathy: (8) Thrombocytopenia: (9) Anemia: Plan 53-year-old male with past medical history of alcoholic cardiomyopathy, liver cirrhosis, alcohol use disorder, essential hypertension, type 2 diabetes mellitus who presented to the hospital for worsening jaundice and was also found to be in alcohol withdrawal #Alcoholic hepatitis #Liver cirrhosis due to to alcohol use #Alcohol use disorder with withdrawal #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 Ponce from [facility] regarding transfer on 01/15/24 Discussed case with pattern repair person and at this point they have declined taking patient in transfer and have given the following recommendations after reviewing all the labs and imaging with me on the phone 1. Start patient on prednisone 40 mg daily and calculate Lille score in 4 days and if there will score ratio from day 1 to day 4 is less than 0.45 then to continue prednisone 40 mg daily for 28 days otherwise to stop prednisone as there is no benefit: 2. Have patient follow-up with pattern repair person Dr. Alonso as outpatient on discharge 3. Consider starting patient on baclofen 10 mg p.o. 3 times daily as some research has shown that he may benefit with alcohol use disorder 4. Alcohol cessation, low-sodium diet and nutrition consult and for patient to engage with outpatient resources for alcohol cessation Gastroenterology is also following the patient and has recommended a dietitian consult and also is recommended checking the Lille score at day 7 Lille score day 4 is 0.265: Good prognosis with score less than 0.4 by predicting a 6-month survival of 85% Patient to continue with corticosteroids prednisone 40 mg daily for total of 28 days: 01/15/2024 to 02/11/2024 (day 5) Patient advised to follow-up with PCP to check Lille score at day 7 and also to follow-up with pattern repair person Dr. Alonso as outpatient Continue multivitamin plus thiamine plus folic acid Continue PPI Patient has changes mind and wants to do outpatient alcohol rehab. He has a phone number for Cole at [facility] and he will continue working with her for rehab options. #NATALY Resolved with IV fluids Avoid nephrotoxic agents including NSAIDs Outpatient follow-up with PCP #Alcohol related cardiomyopathy/chronic congestive heart failure with mildly reduced ejection fraction of 50% #Essential hypertension Echo from 01/14/2024 shows EF of 50% with no wall motion abnormality and moderate concentric LVH with mild mitral regurgitation Continue Toprol-XL to 25 mg daily with hold parameters Continue Jardiance Outpatient follow-up with cardiology on discharge and heart failure clinic #Type 2 diabetes mellitus A1c is 4.4 Continue with Jardiance Outpatient follow-up with PCP for diabetes management #Hypothyroidism Continue levothyroxine 137 mcg p.o. daily Patient seen and examined today. He is tolerating oral diet without any nausea vomiting diarrhea or abdominal pain. He overall is feeling much better with improvement in his jaundice. He wishes to engage with alcohol rehab as outpatient. I have gone over the discharge care plan, medications and follow-up with the patient in great detail and answered all his questions. This discharge took greater than 30 minutes to coordinate Admission HPI Per Admitting Provider 53 y/o male with PMHx of HTN, HLD, DM, GERD, esophageal and alcohol use disorder here for worsening jaundice. Patient has a long standing alcohol use history. Has known cirrhosis and ascites. No history of variceal bleed. Does have a history of alcohol withdrawal. Current every day drinker - 2, 24 ounce malt liquor beverages daily. Interested in cessation. Presented for worsening jaundice. No nausea or vomiting. No dark or bloody stools. Takes pantoprazole. No fevers, chills, CP, SOB. Would like to eat. 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 [Outside Practitioners] - Zoey Alonso DO [Physician] - Diet: Carb Consistent or DM2, Heart Healthy and Low Sodium (2gm) Addtl Attending Provider Instructions: DISCHARGE INSTRUCTION TO PATIENT/FAMILY: Follow-up with your primary care provider within 1 week regarding: Posthospital discharge, medication review, medication refills and follow-up on all your medical problems Please take all your discharge medications, discharge information and discharge instructions to all your doctors appointments. Avoid all NSAIDs including ibuprofen, Motrin, Advil, Aleve, naproxen, meloxicam, Toradol, diclofenac You have alcoholic hepatitis. Your Lille score at day 4 is 0.265 which is less than 0.45. You will need another little score calculated day 7 on 01/21/2024 with your PCP. The calculated Lille score your PCP has to do the following labs on 01/21/2024: CBC, CMP, magnesium, PT/PTT/INR. Please see your PCP for Lille score calculation and labs and follow-up. You are currently on prednisone 40 mg daily for a total of 28 days until 02/11/2024 for alcoholic hepatitis. Avoid all alcohol Please follow-up with your outpatient coffee grower Dr. Humberto Causey in 1 to 2 weeks time regarding heart failure Follow-up with pattern repair person Dr. Alonso at [facility] in 1 to 2 weeks time regarding liver cirrhosis Pending Studies at Discharge: No Stand-Alone Forms: My [employer], Smoking Cessation Medications and DC Order Prescriptions: New folic acid 1 mg Tablet 1 mg PO DAILY Qty: 30 0RF Rx Instructions: Available [id number] metoprolol succinate 25 mg Tablet Extended Release 24 Hr 25 mg PO QAM Qty: 30 0RF multivitamin with folic acid [Daily-Amaury (with folic acid)] 400 mcg Tablet 1 tab PO QAM Qty: 30 0RF Rx Instructions: Available [id number] thiamine HCl (vitamin B1) 100 mg Tablet 100 mg PO DAILY Qty: 30 0RF Rx Instructions: Available [id number]-ghtzwqt prednisone 20 mg Tablet 40 mg PO DAILY Qty: 46 0RF Rx Instructions: FOR TOTAL OF 28 DAYS UNTIL 02/11/24, TAKE WITH FOOD magnesium oxide 400 mg (241.3 mg magnesium) Tablet 800 mg PO BID Qty: 30 0RF Continued gabapentin 100 mg capsule 100 mg PO HS Qty: 30 2RF levothyroxine 137 mcg tablet 137 mcg PO QAM Qty: 30 3RF Jardiance 10 mg tablet 10 mg PO DAILY Qty: 90 3RF (DME) OneTouch Verio test strips Strip See Rx Instructions .Route Qty: 100 0RF Rx Instructions: test 3 times daily pantoprazole 40 mg tablet,delayed release (DR/EC) 40 mg PO DAILY Qty: 90 3RF gabapentin 300 mg capsule 300 mg PO HS PRN (Reason: Other) (DME) FreeStyle Raegan 3 Sensor Device See Rx Instructions .Route Qty: 2 5RF Rx Instructions: Change every 14 days to monitor glucose levels (DME) FreeStyle Raegan 3 [place] Misc See Rx Instructions .Route Qty: 1 0RF Rx Instructions: Use as directed to monitor glucose levels (DME) pen needle, diabetic 32 gauge x 5/32" needle See Rx Instructions .Route Qty: 1200 0RF Rx Instructions: test 3 times daily (DME) lancets [OneTouch Delica Plus Lancet] 33 gauge misc See Rx Instructions .Route Qty: 100 0RF Rx Instructions: test 3 times daily Discontinued carvedilol [Coreg] 25 mg tablet 25 mg PO BID Qty: 180 1RF lisinopril 5 mg tablet 5 mg PO QAM Qty: 90 2RF Patient Comments: PT STATES HAS NOT BEEN TAKING IT>PLANS TO RESTART MED Discharge Orders: Discharge Order- CHF (Routine); Ordered 01/19/24 Ordered By: Roberth Roper/Other Patient Handouts: Managing Type 2 Diabetes, Special Foot Care for Diabetes Admission Data Admit Date/Time: 01/13/24 19:58 Attending Provider: Roberth Murillo Admit Provider: Nery Orellana Primary Care Provider: Teddy Duran Other Providers: Ovidio Trinidad; Peter Coe Hospital Stay Data Consultations 01/13/24 19:29 ED Decision to Admit Stat 01/15/24 08:08 Consult Gastroenterology Routine Diagnostic Imagining Performed 01/13/24 17:01 US gallbladder Stat Chest X-Ray 01/13/24 16:36 XR chest 1V portable HISTORY: 53 years-old Male illness acute shortness of breath COMPARISON: 08/09/2023 TECHNIQUE: AP view of the chest FINDINGS: Cardiac silhouette is mildly enlarged. The lungs are clear. No pneumothorax or pleural effusion. The bones appear intact. IMPRESSION: Cardiomegaly without acute process. ACT 112: Negative or not required by law. The above report was generated using voice recognition software. It may contain grammatical, syntax or spelling errors. Electronically signed by: Mino Lewis M.D. 01/13/2024 5:20 PM Gallbladder Ultrasound 01/13/24 17:01 ABDOMINAL ULTRASOUND, RIGHT UPPER QUADRANT HISTORY: Acutely elevated LFTs jaundice; elevated bilirubin. COMPARISON: CT 08/09/2023 FINDINGS: Pancreas: The pancreas is obscured by bowel gas. Liver: 22 cm in length parenchymal heterogeneity and increased echogenicity with marginal nodularity. No hepatic mass identified. Trace perihepatic ascites. Hepatopedal flow noted within the patent portal vein. Gallbladder: Distended and sludge-filled. No shadowing cholelithiasis. Gallbladder wall measures 3 mm. CBD: 5 mm. Right kidney: No hydronephrosis. IMPRESSION: 1. Distended sludge-filled gallbladder with borderline wall thickening is similar in appearance to the 08/09/2023 CT exam. 2. No cholelithiasis or biliary ductal dilation. 3. Hepatomegaly with cirrhosis and trace ascites redemonstrated. ACT 112: Negative or not required by law. Electronically signed by: Mino Lewis M.D. 01/13/2024 6:03 PM Laboratory Results - last 72 hr 01/16/24 01/16/24 01/17/24 16:42 20:24 06:05 WBC 12.09 H RBC 2.37 L Hgb 9.4 L Hct 27.3 L MCV 115.2 H MCH 39.7 H MCHC 34.4 RDW Std Deviation 76.3 H RDW Coeff of Uvaldo 18.5 H Plt Count 86 L MPV 10.8 Immature Gran % (Auto) 1.2 Neut % (Auto) 76.8 Lymph % (Auto) 13.0 Chilton % (Auto) 7.9 Eos % (Auto) 0.9 Baso % (Auto) 0.2 Neut # (Auto) 9.28 H Lymph # (Auto) 1.57 Chilton # (Auto) 0.96 H Eos # (Auto) 0.11 Baso # (Auto) 0.02 Immature Gran # (Auto) 0.15 Absolute Nucleated RBC 0.04 Nucleated RBC % (auto) 0.3 Platelet Estimate Polychromasia Macrocytosis Present Echinocytes Acanthocytes (Spur) PT 18.6 H INR 1.8 H APTT 33 H PTT Ratio 1.2 Sodium 137 Potassium 4.2 Chloride 107 Carbon Dioxide 25 Anion Gap 5 BUN 11 Creatinine 1.04 Est Cr Clr Drug Dosing 96.6 Est GFR ( Amer) 93.9 Est GFR (Non-Af Amer) 81.0 BUN/Creatinine Ratio 10.6 Glucose 127 H POC Glucose 212 H 154 H Calcium 8.2 L Magnesium 1.8 Total Bilirubin 9.1 H Direct Bilirubin 3.4 H AST 53 H ALT 23 Alkaline Phosphatase 94 Total Protein 6.7 Albumin 2.4 L Globulin 4.3 H Albumin/Globulin Ratio 0.6 L 01/17/24 01/17/24 01/17/24 07:53 11:52 16:51 WBC RBC Hgb Hct MCV MCH MCHC RDW Std Deviation RDW Coeff of Uvaldo Plt Count MPV Immature Gran % (Auto) Neut % (Auto) Lymph % (Auto) Chilton % (Auto) Eos % (Auto) Baso % (Auto) Neut # (Auto) Lymph # (Auto) Chilton # (Auto) Eos # (Auto) Baso # (Auto) Immature Gran # (Auto) Absolute Nucleated RBC Nucleated RBC % (auto) Platelet Estimate Polychromasia Macrocytosis Echinocytes Acanthocytes (Spur) PT INR APTT PTT Ratio Sodium Potassium Chloride Carbon Dioxide Anion Gap BUN Creatinine Est Cr Clr Drug Dosing Est GFR ( Amer) Est GFR (Non-Af Amer) BUN/Creatinine Ratio Glucose POC Glucose 117 H 144 H 157 H Calcium Magnesium Total Bilirubin Direct Bilirubin AST ALT Alkaline Phosphatase Total Protein Albumin Globulin Albumin/Globulin Ratio 01/17/24 01/18/24 01/18/24 20:40 06:31 07:31 WBC 12.44 H RBC 2.45 L Hgb 9.8 L Hct 28.6 L MCV 116.7 H MCH 40.0 H MCHC 34.3 RDW Std Deviation 79.7 H RDW Coeff of Uvaldo 18.8 H Plt Count 96 L MPV 10.2 Immature Gran % (Auto) 1.8 Neut % (Auto) 76.4 Lymph % (Auto) 13.9 Chilton % (Auto) 6.8 Eos % (Auto) 0.9 Baso % (Auto) 0.2 Neut # (Auto) 9.51 H Lymph # (Auto) 1.73 Chilton # (Auto) 0.85 H Eos # (Auto) 0.11 Baso # (Auto) 0.02 Immature Gran # (Auto) 0.22 H Absolute Nucleated RBC 0.06 Nucleated RBC % (auto) 0.5 Platelet Estimate Decreased L Polychromasia 1+ Macrocytosis Present Echinocytes 1+ Acanthocytes (Spur) PT 18.2 H INR 1.8 H APTT 31 PTT Ratio 1.2 Sodium 137 Potassium 4.0 Chloride 106 Carbon Dioxide 26 Anion Gap 5 BUN 12 Creatinine 1.09 Est Cr Clr Drug Dosing 92.4 Est GFR ( Amer) 88.7 Est GFR (Non-Af Amer) 76.5 BUN/Creatinine Ratio 11.0 Glucose 130 H POC Glucose 201 H 118 H Calcium 8.5 L Magnesium 1.8 Total Bilirubin 7.8 H Direct Bilirubin AST 53 H ALT 27 Alkaline Phosphatase 101 Total Protein 6.9 Albumin 2.5 L Globulin 4.4 H Albumin/Globulin Ratio 0.6 L 01/18/24 01/18/24 01/18/24 11:17 16:42 20:26 WBC RBC Hgb Hct MCV MCH MCHC RDW Std Deviation RDW Coeff of Uvaldo Plt Count MPV Immature Gran % (Auto) Neut % (Auto) Lymph % (Auto) Chilton % (Auto) Eos % (Auto) Baso % (Auto) Neut # (Auto) Lymph # (Auto) Chilton # (Auto) Eos # (Auto) Baso # (Auto) Immature Gran # (Auto) Absolute Nucleated RBC Nucleated RBC % (auto) Platelet Estimate Polychromasia Macrocytosis Echinocytes Acanthocytes (Spur) PT INR APTT PTT Ratio Sodium Potassium Chloride Carbon Dioxide Anion Gap BUN Creatinine Est Cr Clr Drug Dosing Est GFR ( Amer) Est GFR (Non-Af Amer) BUN/Creatinine Ratio Glucose POC Glucose 197 H 175 H 162 H Calcium Magnesium Total Bilirubin Direct Bilirubin AST ALT Alkaline Phosphatase Total Protein Albumin Globulin Albumin/Globulin Ratio 01/19/24 01/19/24 01/19/24 06:54 07:53 11:30 WBC 10.74 RBC 2.46 L Hgb 9.8 L Hct 28.9 L MCV 117.5 H MCH 39.8 H MCHC 33.9 RDW Std Deviation 79.9 H RDW Coeff of Uvaldo 18.6 H Plt Count 89 L MPV 10.8 Immature Gran % (Auto) 1.5 Neut % (Auto) 71.6 Lymph % (Auto) 16.5 Chilton % (Auto) 8.5 Eos % (Auto) 1.6 Baso % (Auto) 0.3 Neut # (Auto) 7.70 H Lymph # (Auto) 1.77 Chilton # (Auto) 0.91 H Eos # (Auto) 0.17 Baso # (Auto) 0.03 Immature Gran # (Auto) 0.16 Absolute Nucleated RBC 0.06 Nucleated RBC % (auto) 0.6 Platelet Estimate Polychromasia 1+ Macrocytosis Present Echinocytes Acanthocytes (Spur) 1+ PT 18.5 H INR 1.8 H APTT 30 PTT Ratio 1.1 Sodium 138 Potassium 3.9 Chloride 106 Carbon Dioxide 28 Anion Gap 4 BUN 14 Creatinine 0.98 Est Cr Clr Drug Dosing 102.8 Est GFR ( Amer) 100.9 Est GFR (Non-Af Amer) 87.1 BUN/Creatinine Ratio 14.3 Glucose 105 H POC Glucose 114 H 152 H Calcium 8.6 Magnesium 1.8 Total Bilirubin 7.6 H Direct Bilirubin AST 54 H ALT 30 Alkaline Phosphatase 101 Total Protein 6.9 Albumin 2.4 L Globulin 4.5 H Albumin/Globulin Ratio 0.5 L Pending Results Patient Have Any Pending Studies at Discharge: No Discharge Instructions Given to Patient (Per Discharging Provider) DISCHARGE INSTRUCTION TO PATIENT/FAMILY: Follow-up with your primary care provider within 1 week regarding: Posthospital discharge, medication review, medication refills and follow-up on all your medical problems Please take all your discharge medications, discharge information and discharge instructions to all your doctors appointments. Avoid all NSAIDs including ibuprofen, Motrin, Advil, Aleve, naproxen, meloxicam, Toradol, diclofenac You have alcoholic hepatitis. Your Lille score at day 4 is 0.265 which is less than 0.45. You will need another little score calculated day 7 on 01/21/2024 with your PCP. The calculated Lille score your PCP has to do the following labs on 01/21/2024: CBC, CMP, magnesium, PT/PTT/INR. Please see your PCP for Lille score calculation and labs and follow-up. You are currently on prednisone 40 mg daily for a total of 28 days until 02/11/2024 for alcoholic hepatitis. Avoid all alcohol Please follow-up with your outpatient coffee grower Dr. Humberto aCusey in 1 to 2 weeks time regarding heart failure Follow-up with pattern repair person Dr. Alonso at [facility] in 1 to 2 weeks time regarding liver cirrhosis Total Time Total Time Spent Total Time Spent (In Minutes): 40 minutes Total Time Includes: Examination of the Patient, Discharge Planning and Medication Reconciliation Coding Level of Care Code 77833 INP/OBS DISCH >30 MIN Diagnoses Hepatic cirrhosis K70.31 Ascites presence: with ascites Hepatic cirrhosis type: alcoholic cirrhosis Alcoholic hepatitis K70.10 NATALY (acute kidney injury) N17.9 Type 2 diabetes mellitus E11.9 Obesity (BMI 30-39.9) E66.9 Congestive heart failure (CHF) I50.9 Alcoholic cardiomyopathy I42.6 Thrombocytopenia D69.6 Anemia D64.9 Anemia type: unspecified type
[2024-01-19 16:10] VITALS: BP 131/75; PULSE 83
== END 2024-01-19 16:38 | disposition home or self-care (01) | DRG 432 ==
LOC: ED 16:08 → 2E 19:58 → SUATTDRO 19:58 → 2E 22:03 → 3N 01-16 11:32

== ENCOUNTER 2024-02-05 14:41 | Inpatient (IN) ==
[2024-02-05 15:33] LABS: Appearance Urine Cloudy (Clear); Bacteria Urine Automated None Seen (None Seen); Bilirubin Urine 2+ (Negative); Blood Urine 3+ (Negative); Cast Urine Automated >20 /lpf (0-2); Color Urine Dark Yellow; Epithelial Cell Urine Auto 0-2 /hpf (0-2); Glucose Urine UA Negative (Negative); Ketones Urine Negative (Negative); Leukocyte Esterase Urine 1+ (Negative); Nitrite Urine Positive (Negative); Protein Urine Trace (Negative); Specific Gravity Urine 1.014 (1.000-1.030); Urobilinogen Urine Negative (Negative)
[2024-02-05 15:53] LABS: Hematocrit (blood only) 32.9 % (42.0-52.0); Hemoglobin 11.2 g/dl (14.0-18.0); Mean Corpuscular Volume 111.5 fL (80.0-100.0); Mean Platelet Volume 11.6 fL (9.4-12.4); Nucleated RBC # (auto) 0.05 K/uL (0.00-0.12); Platelet Count 59 K/uL (130-400); RDW Coefficient of Variation 16.4 % (11.5-14.5); RDW Standard Deviation 67.3 fL (36.4-46.3); Red Blood Count 2.95 M/uL (4.70-6.10); White Blood Count 5.13 K/ul (4.8-10.8)
[2024-02-05 16:13] LABS: INR 2.1 (0.9-1.1); Partial Thromboplastin Ratio 1.3; Partial Thromboplastin Time 36 Seconds (21-31); Prothrombin Time 21.1 Seconds (9.0-12.0)
[2024-02-05 16:14] LABS: Alanine Aminotransferase 85 U/L (7-52); Albumin Globulin Ratio 0.7 (0.9-2); Albumin Level 2.6 gm/dl (3.4-5.0); Alkaline Phosphatase 89 U/L (34-104); Anion Gap 17 (3-11); Aspartate Aminotransferase 80 U/L (13-39); BUN Creatinine Ratio 22.2 (10-20); Bilirubin,Total 17.4 mg/dl (0.2-1.0); Blood Urea Nitrogen 60 mg/dl (6-23); Carbon Dioxide 23 mmol/L (21-32); Chloride 83 mmol/L (98-107); Creatinine Clr Calc Pharmacy 38.4 ml/min; Globulin 3.9 gm/dl (2.5-4.0); Glucose 168 mg/dl (70-99(Fasting)); Potassium 4.2 mmol/L (3.5-5.1); Sodium 123 mmol/L (136-145); Total Protein 6.5 gm/dl (6.0-8.3)
[2024-02-05 16:15] LABS: Troponin I High Sensitivity 34.7 pg/ml (0-20)
[2024-02-05] MEDS: cefTRIAXone SODIUM 2,000 MG/50 ML BAG IV STA (16:25)
[2024-02-05] MEDS: FUROSEMIDE INJ 20 MG/2 ML VIAL IV ONE (16:25)
--- NOTE | 2024-02-05 16:33 | XRay Report ---
XR chest 1V portable CLINICAL HISTORY: Chest pain, nonspecific TECHNIQUE: Single frontal radiograph of the chest was obtained. Comparison: Comparison is made to chest radiograph 01/13/2024 FINDINGS: No lines and tubes are seen. The cardiomediastinal silhouette is normal. Lungs are underinflated but clear. No evidence of pleural effusion or pneumothorax. IMPRESSION: No acute chest disease. ACT 112: Negative or not required by law. Electronically signed by: Garrett Guy M.D. 02/05/2024 4:32 PM
--- NOTE | 2024-02-05 16:37 | Emergency Department Note ---
Impression & Plan Bilateral edema of lower extremity, Thrombocytopenia, Hyperbilirubinemia, NATALY (acute kidney injury), Bilateral leg pain, Acute UTI (urinary tract infection), Hyponatremia, Coagulopathy ED Provider Note ED Provider Note NAME: FRANKI CORTES AGE:54 SEX: Male : 1970 ARRIVES VIA: private vehicle INFORMANT: Patient ED PROVIDER(s): Leena Kimble DO CHIEF COMPLAINT: Unable to get medications over the last week, increased leg swelling and pain HPI: This is a 54-year-old male who presents emergency room due to concern for increased leg pain and swelling. He states he was admitted 2 weeks ago and felt better at time of discharge. He states he was unable to get his medications filled over the last week due to financial problems. He states he slowly began to have increased leg swelling and swelling in the lower abdomen. Significant other also noticed rash of the patient's legs that seem to start in the thighs. Patient also complains of constipation this week as well as difficulty urinating. He denies fevers or chills, cough or cold symptoms. Significant other feels that the yellow discoloration of his skin and eyes is improved compared to when he was initially admitted. He states he was told to follow-up with GI as an outpatient however given he had no insurance he was unable to schedule anything. PAST MEDICAL HISTORY:See Below PAST SURGICAL HISTORY:See Below FAMILY HISTORY:See Below SOCIAL HISTORY:See Below HOME MEDICATIONS:See Below ALLERGIES:See Below VITALS:See Below PHYSICAL EXAMINATION: GENERAL: alert, unwell appearing, well nourished, no distress, non-toxic, jaundice EYE EXAM: normal conjunctiva, PERRL and EOM's grossly intact, scleral icterus OROPHARYNX: no exudate, no erythema, lips, buccal mucosa, and tongue normal and mucous membranes are moist NECK: supple, no nuchal rigidity, no adenopathy, non-tender LUNGS: Clear to auscultation. Normal chest wall mechanics, no w/r/r HEART: no murmurs, S1 normal and S2 normal ABDOMEN: abdomen soft, non-tender, normo-active bowel sounds, no masses, no rebound or guarding. Distended abdomen. No fluid wave BACK: Back is symmetrical on inspection and there is no deformity, no midline tenderness, no CVA tenderness. SKIN: no rashes, petechiae, orbruising UPPER EXTREMITIES: upper extremities are grossly normal. FROM, nml pulses b/l. LOWER EXTREMITIES: 3+ b/l pitting edema. FROM, nml pulses b/l. Ecchymosis noted superiorly, no joint effusions, no evidence of trauma or deformity. NEURO EXAM: Normal sensorium, cranial nerves II-XII grossly intact, normal speech, no facial droop,nogross weakness of arms, no gross weakness of legs. Gross sensation intact. No ataxia. Vital Signs: reviewed and remarkable Differential Diagnosis: Medication noncompliance, acute liver failure, acute kidney injury, hepatorenal syndrome, SBP, worsening ascites, dehydration, hyperglycemia, DKA, viral syndrome, colitis, as well as others were considered MEDICAL DECISION MAKING: This is a 54-year-old male presents emergency room due to concern for increased lower extremity edema and pain and increased abdominal swelling after being out of his medications for 1 week following recent admission and discharge. Patient with known liver failure secondary to prior alcohol use. Initially nursing staff felt abdominal distention might be related to urinary retention and performed a bladder scan and placed a Falcon prior to my arrival in the ER and evaluation at bedside. Upon presenting bedside, I did ultrasound the patient's abdomen and the fluid that had been seen in the bladder scanner is the patient's increased ascites. Minimal urine output via Falcon catheter however was left in place due to concern for trauma and the need for close monitoring of input and output due to concern for his condition and potential complications. He was afebrile and vital signs stable although he was noted to be tachycardic. Labs drawn and sent, IV established, EKG and chest ray performed at bedside interpreted me and patient monitored on telemetry. Patient noted to have worsening LFTs, new acute kidney failure, anemia, worsening thrombocytopenia, and appearance of evolving UTI. He was also noted to have hyponatremia, worse compared to prior episodes. He was given IV Rocephin, a dose of IV furosemide due to his edema and ascites, and IV Protonix. Given patient has been tolerating p.o., he was not started on IV fluids. Given concern for worsening condition, liver failure, hepatorenal syndrome, persistent tachycardia, case discussed with hospitalist team for additional evaluation and management. Following the admission but before patient had been sent to an inpatient room, he did have a brief episode of atrial fibrillation with RVR and accompanying hypotension. This did resolve to a sinus tachycardia again. In light of this Dr. Greer requested the patient be placed in the intensive care unit. Consultation(s): 1701: Discussed with Dr. Greer, [facility], for additional evaluation and management. ER Treatment Provided: See below Diagnostics Interpreted By Me: -ECG: Sinus tachycardia at 126, normal axis, normal intervals, nonspecific ST/T wave changes -Cardiac Monitoring: An order was placed for continuous cardiac monitoring. The monitor shows a rate of 116 with sinus tachycardia rhythm. -Laboratory studies: As stated above and show below. -Imaging studies: X-ray Chest: A single view study of the chest was reviewed and was negative for cardiomegaly, focal infiltrate, effusion, pulmonary edema, or wide mediastinum. Triage Nursing Note Reviewed Prior/Outside Records Reviewed Critical Care: Critical care of 39 min performed to assess and manage high likelihood of life-threatening hepatorenal syndrome, involving labs and imaging performed with assessment to evaluate LE edema and worsening jaundice diagnosis with frequent reassessment. This time includes bedside time, treatment discussions with patient/family/consultants, documentation time and excludes procedure time. Past Med/Surg History Problem List (Updated 02/06/24 @ 01:02 by Leena Kimble, ) Coagulopathy (Acute) Hyponatremia (Acute) Atrial fibrillation with RVR Acute UTI (urinary tract infection) (Acute) Bilateral leg pain (Acute) NATALY (acute kidney injury) (Acute) Hyperbilirubinemia (Acute) Thrombocytopenia (Acute) Bilateral edema of lower extremity (Acute) Fall against object Alcoholic hepatitis Bone marrow depression Alcohol withdrawal syndrome Coagulopathy Elevated lipase Alcoholic cirrhosis of liver with ascites Acute pancreatitis (Acute) Hypomagnesemia (Acute) NATALY (acute kidney injury) (Acute) Hyperbilirubinemia (Acute) Olecranon bursitis, left elbow Insulin dependent type 2 diabetes mellitus Thrombocytopenia (Acute) UGIB (upper gastrointestinal bleed) (Acute) Anemia (Acute) Type 2 diabetes mellitus History of atrial fibrillation GERD (gastroesophageal reflux disease) Esophageal dysphagia Primary hypogonadism in male Erectile dysfunction Obesity (BMI 30-39.9) Metabolic syndrome Hyperlipidemia Elevated ferritin Elevated liver function tests Hypothyroid Low testosterone in male Insomnia (Chronic) Hypertension (Chronic) Congestive heart failure (CHF) (Chronic) HX OF Alcoholic cardiomyopathy (Chronic) Admitted 04/2018 for ETOH withdrawal, acute pancreatitis, non-ischmeic CM with EF 15-20%- LifeVest monitoring 07/07/18 showed a fib with RVR with tachycardia-induced tachycardia. Repeat ECHO in 07/2018 shows EF of 32%>NOW PT STATES EF IS "NORMAL" 60/NO CARDS Medical History (Updated 02/06/24 @ 01:02 by Leena Kimble DO) Acute heart failure with mildly reduced ejection fraction (HFmrEF, 41-49%) Alcohol intoxication Borderline diabetic History of kidney stones Infected pacemaker Pacer removed August 20182 infected wires History of urinary tract infection Surgical History [place] teeth removed S/P debridement (05/30/19) Left Chest Wound Debridement Dr. Pratt 05/30/19 Hx of hernia repair Hx of cystoscopy x2 History of cardiac cath ismael - 2018/NO STENTS Family History Father Alcohol abuse Heart disease Cardiac disorder Myocardial infarction, Onset Age: 60 Brother Cancer Mother Stroke Other No family history of adverse response to anesthesia Denies family history of Colon cancer Ovarian cancer Prostate cancer Breast cancer Social History Smoking Status: Never smoker Second Hand Exposure: No; Do You Dip or Chew Tobacco: No; Tobacco Cessation Education Requested by Patient: No Hx Alcohol Use: Yes Alcohol type: other Alcohol Intake Frequency: 4 or More x per/Week Hx Substance Use: No Preferred Language: Vietnamese Communication Ability: Effective Visual Impairment: No Limitations Hearing Ability: Normal Lead Burner Required: No Beliefs That Will Affect Care: None marital status: Current Living Situation: Spouse current occupational status: employed How many Children do You have: 2 Other Information That Helps Us Care for You: No Feels Safe at Home: Yes Safety Concerns: Feels Safe At This Time Childhood Exposure to Second-Hand Smoke: Yes Diet: regular Diet Comment: regular caffeine: Yes during the past year weight has: remained stable Dental Care, Regularly: No Physical Activity Frequency: 3-4 Times per Week Seatbelt Use: always Sunscreen Use: No Assistive Devices: Glasses Allergies Allergies Allergy/AdvReac Type Severity Reaction Status Date / Time No Known Allergies Allergy Verified 02/05/24 16:47 Home Meds Home Medications Medication Instructions Recorded Confirmed gabapentin 300 mg capsule 300 mg PO HS PRN Other 10/12/23 01/28/24 lisinopril 5 mg tablet 5 mg PO DAILY 02/05/24 02/05/24 Previous Rx's Medication Instructions Recorded lancets 33 gauge (OneTouch Delica #100 ea 08/12/23 Plus Lancet) pen needle, diabetic 32 gauge x #1,200 ea 08/12/23 5/32" blood-glucose meter,continuous #1 ea 10/12/23 (FreeStyle Raegan 3 [place]) blood-glucose sensor (FreeStyle #2 ea 10/12/23 Raegan 3 Sensor device) gabapentin 100 mg capsule 100 mg PO HS #30 caps 12/15/23 levothyroxine 137 mcg tablet 137 mcg PO QAM #30 tabs 12/15/23 blood sugar diagnostic (OneTouch #100 ea 01/07/24 Verio test strips) empagliflozin 10 mg tablet 10 mg PO DAILY #90 tabs 01/07/24 (Jardiance) folic acid 1 mg tablet 1 mg PO DAILY #30 tabs 01/19/24 magnesium oxide 400 mg (241.3 mg 800 mg (2 x 400 mg (241.3 mg 01/19/24 magnesium) tablet magnesium)) PO BID #30 tabs metoprolol succinate 25 mg 25 mg PO QAM #30 tabs 01/19/24 tablet,extended release 24 hr multivitamin with folic acid 400 1 tab PO QAM #30 tabs 01/19/24 mcg tablet (Daily-Amaury (with folic acid)) prednisone 20 mg tablet 40 mg (2 x 20 mg) PO DAILY #46 tabs 01/19/24 thiamine HCl (vitamin B1) 100 mg 100 mg PO DAILY #30 tabs 01/19/24 tablet blood sugar diagnostic (FreeStyle #50 ea 01/28/24 Test strips) blood-glucose sensor (FreeStyle #6 ea 01/28/24 Raegan 3 Sensor device) cephalexin 500 mg capsule 500 mg PO QID 7 days #28 caps 01/28/24 furosemide 20 mg tablet 20 mg PO DAILY #30 tabs 01/28/24 insulin lispro 100 unit/mL 1 sliding scale dose subcut 01/28/24 subcutaneous pen USEASDIRECTD #15 mL pantoprazole 40 mg tablet,delayed 40 mg PO DAILY #90 tabs 01/28/24 release Results & Data (ED) Vital Signs Vital Signs - 24 hr 02/05/24 14:45 02/05/24 15:38 02/05/24 15:57 Temperature 36.6 C Temperature Source Temporal Artery Scan Pulse Rate 117 H 120 H 124 H Pulse Rate [Apical] Pulse Rate from SpO2 Sensor 102 H Respiratory Rate 18 19 Respiratory Effort / Characteristics Non-Labored Spontaneous Respiratory Depth Normal Blood Pressure 116/69 Blood Pressure [Right Arm] Blood Pressure Mean 84 Blood Pressure Mean [Right Arm] Pulse Oximetry 98 96 Oxygen Delivery Method Room Air Sepsis Recent Fever Within 48 Hours No Sepsis New/Unexplained Change in Mental Status No Sepsis Action Taken by Nursing No Action Required 02/05/24 16:00 02/05/24 16:06 02/05/24 16:09 Temperature Temperature Source Pulse Rate 121 H 122 H Pulse Rate [Apical] Pulse Rate from SpO2 Sensor 122 H 119 H Respiratory Rate 15 12 Respiratory Effort / Characteristics Respiratory Depth Blood Pressure 130/81 Blood Pressure [Right Arm] Blood Pressure Mean 106 Blood Pressure Mean [Right Arm] Pulse Oximetry 97 98 Oxygen Delivery Method Sepsis Recent Fever Within 48 Hours Sepsis New/Unexplained Change in Mental Status Sepsis Action Taken by Nursing 02/05/24 16:10 02/05/24 16:10 02/05/24 16:10 Temperature Temperature Source Pulse Rate 122 H Pulse Rate [Apical] 121 H Pulse Rate from SpO2 Sensor Respiratory Rate 24 24 Respiratory Effort / Characteristics Respiratory Depth Normal Blood Pressure Blood Pressure [Right Arm] 130/81 Blood Pressure Mean Blood Pressure Mean [Right Arm] 97 Pulse Oximetry 97 97 97 Oxygen Delivery Method Room Air Room Air Room Air Sepsis Recent Fever Within 48 Hours Sepsis New/Unexplained Change in Mental Status Sepsis Action Taken by Nursing 02/05/24 16:15 02/05/24 16:25 02/05/24 16:39 Temperature Temperature Source Pulse Rate 123 H 118 H Pulse Rate [Apical] Pulse Rate from SpO2 Sensor 109 H 112 H Respiratory Rate 13 20 Respiratory Effort / Characteristics Respiratory Depth Blood Pressure 101/82 Blood Pressure [Right Arm] Blood Pressure Mean 85 Blood Pressure Mean [Right Arm] Pulse Oximetry 97 96 Oxygen Delivery Method Sepsis Recent Fever Within 48 Hours Sepsis New/Unexplained Change in Mental Status Sepsis Action Taken by Nursing 02/05/24 16:42 02/05/24 17:00 02/05/24 17:00 Temperature Temperature Source Pulse Rate 117 H Pulse Rate [Apical] Pulse Rate from SpO2 Sensor 118 H Respiratory Rate 15 Respiratory Effort / Characteristics Respiratory Depth Blood Pressure 134/79 134/79 Blood Pressure [Right Arm] Blood Pressure Mean 99 99 Blood Pressure Mean [Right Arm] Pulse Oximetry 97 Oxygen Delivery Method Sepsis Recent Fever Within 48 Hours Sepsis New/Unexplained Change in Mental Status Sepsis Action Taken by Nursing 02/05/24 17:00 02/05/24 17:00 02/05/24 17:03 Temperature Temperature Source Pulse Rate 120 H Pulse Rate [Apical] Pulse Rate from SpO2 Sensor 119 H Respiratory Rate Respiratory Effort / Characteristics Respiratory Depth Blood Pressure 134/79 134/79 Blood Pressure [Right Arm] Blood Pressure Mean 99 99 Blood Pressure Mean [Right Arm] Pulse Oximetry 98 Oxygen Delivery Method Sepsis Recent Fever Within 48 Hours Sepsis New/Unexplained Change in Mental Status Sepsis Action Taken by Nursing 02/05/24 17:21 02/05/24 17:36 02/05/24 17:39 Temperature Temperature Source Pulse Rate 123 H 170 H 125 H Pulse Rate [Apical] Pulse Rate from SpO2 Sensor 138 H 125 H Respiratory Rate 18 13 13 Respiratory Effort / Characteristics Respiratory Depth Blood Pressure Blood Pressure [Right Arm] Blood Pressure Mean Blood Pressure Mean [Right Arm] Pulse Oximetry 97 98 Oxygen Delivery Method Sepsis Recent Fever Within 48 Hours Sepsis New/Unexplained Change in Mental Status Sepsis Action Taken by Nursing Laboratory Data 02/05/24 15:28 02/05/24 15:28 Lab Results 02/05/24 Range/Units 15:28 WBC 5.13 (4.8-10.8) K/ul RBC 2.95 L (4.70-6.10) M/uL Hgb 11.2 L (14.0-18.0) g/dl Hct 32.9 L (42.0-52.0) % MCV 111.5 H (80.0-100.0) fL MCH 38.0 H (25.0-34.0) pg MCHC 34.0 (32.0-36.0) g/dL RDW Std Deviation 67.3 H (36.4-46.3) fL RDW Coeff of Uvaldo 16.4 H (11.5-14.5) % Plt Count 59 L (130-400) K/uL MPV 11.6 (9.4-12.4) fL Immature Gran % (Auto) 1.2 % Neut % (Auto) 89.6 % Lymph % (Auto) 3.5 % [place] % (Auto) 4.9 % Eos % (Auto) 0.2 % Baso % (Auto) 0.6 % Neut # (Auto) 4.60 (1.40-6.50) K/uL Lymph # (Auto) 0.18 L (1.20-3.40) K/uL [place] # (Auto) 0.25 (0.11-0.59) K/uL Eos # (Auto) 0.01 (0.00-0.50) K/uL Baso # (Auto) 0.03 (0.00-0.20) K/uL Immature Gran # (Auto) 0.06 (0.01-0.20) K/uL Absolute Nucleated RBC 0.05 (0.00-0.12) K/uL Nucleated RBC % (auto) 1.0 % Toxic Vacuolation 1+ Polychromasia 1+ Macrocytosis Present Echinocytes 1+ PT 21.1 H (9.0-12.0) Seconds INR 2.1 H (0.9-1.1) APTT 36 H (21-31) Seconds PTT Ratio 1.3 Sodium 123 L (136-145) mmol/L Potassium 4.2 (3.5-5.1) mmol/L Chloride 83 L (98-107) mmol/L Carbon Dioxide 23 (21-32) mmol/L Anion Gap 17 H (3-11) BUN 60 H (6-23) mg/dl Creatinine 2.70 H (0.6-1.4) mg/dl Est Cr Clr Drug Dosing 38.4 ml/min eGFR 26.99 BUN/Creatinine Ratio 22.2 H (10-20) Glucose 168 H (70-99(Fasting)) mg/dl Calcium 8.0 L (8.6-10.3) mg/dl Phosphorus 5.4 H (2.5-4.9) mg/dl Magnesium 2.0 (1.7-2.4) mg/dl Total Bilirubin 17.4 H (0.2-1.0) mg/dl AST 80 H (13-39) U/L ALT 85 H (7-52) U/L Alkaline Phosphatase 89 (34-104) U/L Troponin I High Sens 34.7 H (0-20) pg/ml Total Protein 6.5 (6.0-8.3) gm/dl Albumin 2.6 L (3.4-5.0) gm/dl Globulin 3.9 (2.5-4.0) gm/dl Albumin/Globulin Ratio 0.7 L (0.9-2) Lipase TNP Administered Medications Albumin Human (Albumin 25%) 25 gm in 100 mls @ 50 mls/hr IV Q6H [facility] Stop: 02/08/24 18:59 Last Infusion: 02/05/24 22:54 Dose: Infused Documented By: Admin: 02/05/24 21:09 Dose: 50 mls/hr Documented By: NEDRA Phenylephrine HCl (Phenylephrine/Nss) 25 mg in 250 mls @ 33.39 mls/hr IV .Q7H30M [facility]; Protocol Stop: 03/06/24 21:59 Last Admin: 02/05/24 22:06 Dose: 0.5 mcg/kg/min, 33.4 mls/hr Documented By: NEDRA Co-signed By: TP Discontinued Medications Furosemide (Furosemide Inj 20 Mg/2 Ml Vial) 20 mg IV ONE ONE Stop: 02/05/24 16:16 Last Admin: 02/05/24 17:54 Dose: 20 mg Documented By: MARIAN Furosemide (Furosemide 40 Mg/4 Ml Vial) 40 mg IV ONE ONE Stop: 02/05/24 18:22 Last Admin: 02/05/24 18:52 Dose: 40 mg Documented By: PRISCILLA Ceftriaxone Sodium (Rocephin) 2,000 mg in 50 mls @ 100 mls/hr IV NOW STA Stop: 02/05/24 16:43 Last Infusion: 02/05/24 18:26 Dose: Infused Documented By: Admin: 02/05/24 17:54 Dose: 100 mls/hr Documented By: MARIAN Norepinephrine Bitartrate (Levophed/D5w) 4 mg in 250 mls @ 16.515 mls/hr IV .Q15H9M [facility]; Protocol Stop: 03/06/24 19:14 Last Titration: 02/05/24 22:05 Dose: Infused Documented By: Titration: 02/05/24 20:30 Dose: 0.04 mcg/kg/min, 16.5 mls/hr Documented By: ESIshmael Titration: 02/05/24 20:02 Dose: 0.06 mcg/kg/min, 24.8 mls/hr Documented By: Titration: 02/05/24 19:58 Dose: 0.04 mcg/kg/min, 16.5 mls/hr Documented By: Titration: 02/05/24 19:44 Dose: 0.02 mcg/kg/min, 8.3 mls/hr Documented By: Titration: 02/05/24 19:17 Dose: 0.04 mcg/kg/min, 16.5 mls/hr Documented By: Admin: 02/05/24 19:12 Dose: 0.02 mcg/kg/min, 8.3 mls/hr Documented By: MARIAN Co-signed By: BRAYAN Amiodarone HCl/Dextrose (Nexterone / D5w) 150 mg in 100 mls @ 600 mls/hr IV NOW STA Stop: 02/05/24 19:19 Last Admin: 02/05/24 19:24 Dose: Not Given Documented By: PRISCILLA Amiodarone HCl/Dextrose (Nexterone / D5w) 360 mg in 200 mls @ 33.333 mls/hr IV ONE ONE Stop: 02/06/24 01:20 Last Admin: 02/05/24 21:53 Dose: Not Given Documented By: ESG Digoxin 250 mcg/ Syringe 10 mls @ 2 mls/min IV NOW STA Stop: 02/05/24 22:00 Last Admin: 02/05/24 22:12 Dose: 2 mls/min Documented By: ESG Norepinephrine Bitartrate (Norepinephrine/D5w 4 Mg/250 Ml) Confirm Administered Dose 4 mg IV .STK-MED ONE Stop: 02/05/24 19:07 Last Admin: 02/05/24 19:12 Dose: Not Given Documented By: [facility] Imaging Data Radiologist's Impression: Chest X-Ray 02/05/24 14:50 XR chest 1V portable CLINICAL HISTORY: Chest pain, nonspecific TECHNIQUE: Single frontal radiograph of the chest was obtained. Comparison: Comparison is made to chest radiograph 01/13/2024 FINDINGS: No lines and tubes are seen. The cardiomediastinal silhouette is normal. Lungs are underinflated but clear. No evidence of pleural effusion or pneumothorax. IMPRESSION: No acute chest disease. ACT 112: Negative or not required by law. Electronically signed by: Garrett Guy M.D. 02/05/2024 4:32 PM Abdomen/Pelvis CT 02/05/24 16:46 CT OF THE ABDOMEN AND PELVIS WITHOUT CONTRAST CLINICAL HISTORY: Acute kidney injury. Urinary tract infection. COMPARISON STUDY: CT of the abdomen and pelvis August 09, 2023. Right upper quadrant ultrasound January 13, 2024. TECHNIQUE: Axial images of the abdomen and pelvis were obtained without IV contrast. Images were reviewed in the axial, sagittal, and coronal planes. Automated exposure control was utilized for the study. A dose lowering technique was utilized adhering to the principles of ALARA. FINDINGS: There is a small left pleural effusion. No pneumatosis, free air or portal venous gas is present. There is no hydronephrosis. No renal, ureteral or bladder calculi are present. The bladder is collapsed and contains a Falcon balloon. Evaluation of the remainder of the abdomen and pelvis is suboptimal on this unenhanced exam. The gallbladder is distended. This is similar to prior CT. The liver is cirrhotic. No hepatic lesions are identified on unenhanced exam. The spleen is mildly enlarged. Varices are again noted. Moderate to large volume ascites has increased since prior exam. No fluid collections are identified. Unenhanced images of the adrenal glands and kidneys are unremarkable. There is no biliary or pancreatic ductal dilatation. There are 2 suspected splenules, including a splenule within the pancreatic tail. These are unchanged. No evidence for a bowel obstruction. The appendix is normal. Sigmoid diverticulosis. No evidence for acute diverticulitis. A small amount of ascites within the umbilical hernia is present. Body wall edema. There is edema within visualized portions of the thighs. IMPRESSION: 1. No urinary calculi or hydronephrosis. 2. Cirrhotic liver. Moderate to large ascites. Varices formation and mild splenomegaly. The findings indicate portal hypertension. 3. Anasarca with body wall edema. Trace left pleural effusion. 4. No evidence for a bowel obstruction. Sigmoid diverticulosis. No evidence for acute diverticulitis. ACT 112: Negative or not required by law. Electronically signed by: Kody Cordova M.D. 02/05/2024 5:30 PM Discharge Plan Visit Data Chief Complaint: Infection Stated Complaint: FLUID BUILD UP BELOW WAIST,CELLULITIS IN BOTH LEGS ED Provider: Leena Kimble Discharge Problem: Bilateral edema of lower extremity, Thrombocytopenia, Hyperbilirubinemia, NATALY (acute kidney injury), Bilateral leg pain, Acute UTI (urinary tract infection), Hyponatremia, Coagulopathy Patient Disposition: Admitted As Inpatient Discharge Instructions Interventions: ED Discharge Assessment Last Done: 02/05/24 20:10
--- NOTE | 2024-02-05 16:40 | Electrocardiogram Report ---
Test Reason : Blood Pressure : */* mmHG Vent. 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 rate has increased by 43 bpm Incomplete right bundle branch block is no longer Present Confirmed by Azael Richards ([id number]) on 02/05/2024 4:40:03 PM Referred By: Confirmed By: Azael Richards
[2024-02-05 17:06] LABS: Basophils # (auto) 0.03 K/uL (0.00-0.20); Basophils % (auto) 0.6 %; Echinocytes 1+; Eosinophils # (auto) 0.01 K/uL (0.00-0.50); Eosinophils % (auto) 0.2 %; Immature Granulocytes # (auto) 0.06 K/uL (0.01-0.20); Immature Granulocytes % (auto) 1.2 %; Lymphocytes # (auto) 0.18 K/uL (1.20-3.40); Lymphocytes % (auto) 3.5 %; Macrocytosis Present; Monocytes # (auto) 0.25 K/uL (0.11-0.59); Monocytes % (auto) 4.9 %; Neutrophils % (auto) 89.6 %; Polychromasia 1+; Toxic Vacuolation 1+
[2024-02-05 17:09] LABS: Phosphorus 5.4 mg/dl (2.5-4.9)
--- NOTE | 2024-02-05 17:32 | CT Scan Report ---
CT OF THE ABDOMEN AND PELVIS WITHOUT CONTRAST CLINICAL HISTORY: Acute kidney injury. Urinary tract infection. COMPARISON STUDY: CT of the abdomen and pelvis August 09, 2023. Right upper quadrant ultrasound Septe 2023. TECHNIQUE: Axial images of the abdomen and pelvis were obtained without IV contrast. Images were revi ewed in the axial, sagittal, and coronal planes. Automated exposure control was utilized for the herve dy. A dose lowering technique was utilized adhering to the principles of ALARA. FINDINGS: There is a small left pleural effusion. No pneumatosis, free air or portal venous gas is pr esent. There is no hydronephrosis. No renal, ureteral or bladder calculi are present. The bladder is collapsed and contains a Falcon balloon. Evaluation of the remainder of the abdomen and pelvis is subo ptimal on this unenhanced exam. The gallbladder is distended. This is similar to prior CT. The liver is cirrhotic. No hepatic lesions are identified on unenhanced exam. The spleen is mildly enlarged. Va rices are again noted. Moderate to large volume ascites has increased since prior exam. No fluid lenin ections are identified. Unenhanced images of the adrenal glands and kidneys are unremarkable. There i s no biliary or pancreatic ductal dilatation. There are 2 suspected splenules, including a splenule w ithin the pancreatic tail. These are unchanged. No evidence for a bowel obstruction. The appendix is normal. Sigmoid diverticulosis. No evidence for acute diverticulitis. A small amount of ascites withi n the umbilical hernia is present. Body wall edema. There is edema within visualized portions of the thighs. IMPRESSION: 1. No urinary calculi or hydronephrosis. 2. Cirrhotic liver. Moderate to large ascites. Varices formation and mild splenomegaly. The findings indicate portal hypertension. 3. Anasarca with body wall edema. Trace left pleural effusion. 4. No evidence for a bowel obstruction. Sigmoid diverticulosis. No evidence for acute diverticulitis. ACT 112: Negative or not required by law. Electronically signed by: Kody Cordova M.D. 02/05/2024 5:30 PM
--- NOTE | 2024-02-05 17:43 | History & Physical Report ---
Date of Service February 05, 2024 Assessment & Plan (1) Alcoholic cirrhosis of liver with ascites: Plan: This is a 54-year-old male with past medical history of alcoholic cardiomyopathy, liver cirrhosis with ascites, alcohol use disorder who presented to the ED on 02/05/2024 with chief complaint of increased leg swelling and pain. Concern for hepatorenal syndrome MELD score 37. Denies active alcohol use therefore no active indication for steroids alcohol level <10 Lactate 9.5, repeat pending CTAP reviews moderate to large amount of ascites. orders placed for paracentesis Added IV Albumin q6H s/p IV 20mg Lasix and IV 40mg Lasix in ED. CMP: TB 17.4, Na 123, Creatinine 2.70, BUN 60, AST/ALT 80/85. CBC: WBC WNL, plt 59. thrombocytopenia/petechiae likely from cirrhosis INR: 2.1 Ammonia level pending. negative asterixis on examination, AxOx3 - no indication for lactulose at this time. No NSAIDs Continue Thiamine and Folic acid. Continue ETOH cessation. AM CBC, CMP, PT/INR (2) NATALY (acute kidney injury): Plan: Creatinine on admission 2.90 Hold Lisinopril Avoid nephrotoxic agents. Concern for hepatorenal syndrome. Remainder of plan as above. (3) Insulin dependent type 2 diabetes mellitus: Plan: Hemoglobin A1c 01/07/2024: 4.4% Continue home Jardiance Sliding scale insulin coverage w/ Accu-checks prior to meals monitor glycemic control (4) Acute UTI (urinary tract infection): Plan: s/p 2g IV Rocephin in ED Urinalysis mildly positive in the ER, culture pending Continue IV Rocephin until culture results are back. Plan Chronic conditions: Hypothyroidism: Levothyroxine GERD: PPI Neuropathy: gabapentin HTN/HF: Metoprolol Diet: heart healthy Disposition: telemetry Code status: full DVT prophylaxis: avoid in setting of thrombocytopenia. History of Present Illness Primary Care Provider: BEHZAD Salazar This is a 54-year-old male with past medical history of alcoholic cardiomyopathy, liver cirrhosis with ascites, alcohol use disorder who presented to the ED on 02/05/2024 with chief complaint of increased leg swelling and pain. Patient was recently hospitalized from 01/13/2024 to 01/19/2024 for alcoholic hepatitis. He was discharged home to start on prednisone 40 mg daily and to follow-up with gastroenterology. Patient had also been interested in outpatient rehab for alcohol at that time. Patient states that since his discharge from the hospital he has struggled getting his outpatient medications and believes that is why his condition has advanced. He states that he has been off of his medications for longer than a week. He states that he is recently unemployed which is why he is unable to get them. He is complaining of abdominal distention and bilateral lower extremity edema. He is also complaining of bruising on his bilateral lower extremities. He states that he has had issues with constipation and urination recently. Outpatient he was on Lasix 20 mg daily. He denies ever being on any additional diuretics that he is aware of. He states that he has not had any alcohol since his last hospitalization. His previous drink of choice was malt liquor and drink up to 2-6 packs daily. At time of my examination, he was resting comfortably in bed. Abdomen was distended. He states that his been this way for a while but has recently "blown up" within the last few days or so. He also states that his petechiae on his thighs started after he helped his friend fix a garage and he was on his feet all day. He does feel short of breath but denies any chest pain. He also states that he stopped taking his steroids because he felt it was worsening his edema. Allergies Allergy/AdvReac Type Severity Reaction Status Date / Time No Known Allergies Allergy Verified 02/05/24 16:47 Home Medications Medication Instructions Recorded Confirmed Type lancets 33 gauge (OneTouch Delica #100 ea 08/12/23 01/28/24 Rx Plus Lancet) pen needle, diabetic 32 gauge x #1,200 ea 08/12/23 01/28/24 Rx 5/32" blood-glucose meter,continuous #1 ea 10/12/23 01/28/24 Rx (FreeStyle Raegan 3 [place]) blood-glucose sensor (FreeStyle #2 ea 10/12/23 01/28/24 Rx Raegan 3 Sensor device) gabapentin 300 mg capsule 300 mg PO HS PRN Other 10/12/23 01/28/24 History gabapentin 100 mg capsule 100 mg PO HS #30 caps 12/15/23 02/05/24 Rx levothyroxine 137 mcg tablet 137 mcg PO QAM #30 tabs 12/15/23 02/05/24 Rx blood sugar diagnostic (OneTouch #100 ea 01/07/24 01/28/24 Rx Verio test strips) empagliflozin 10 mg tablet 10 mg PO DAILY #90 tabs 01/07/24 02/05/24 Rx (Jardiance) folic acid 1 mg tablet 1 mg PO DAILY #30 tabs 01/19/24 01/28/24 Rx magnesium oxide 400 mg (241.3 mg 800 mg (2 x 400 mg (241.3 mg 01/19/24 02/05/24 Rx magnesium) tablet magnesium)) PO BID #30 tabs metoprolol succinate 25 mg 25 mg PO QAM #30 tabs 01/19/24 01/28/24 Rx tablet,extended release 24 hr multivitamin with folic acid 400 1 tab PO QAM #30 tabs 01/19/24 02/05/24 Rx mcg tablet (Daily-Amaury (with folic acid)) prednisone 20 mg tablet 40 mg (2 x 20 mg) PO DAILY #46 tabs 01/19/24 02/05/24 Rx thiamine HCl (vitamin B1) 100 mg 100 mg PO DAILY #30 tabs 01/19/24 02/05/24 Rx tablet blood sugar diagnostic (FreeStyle #50 ea 01/28/24 01/28/24 Rx Test strips) blood-glucose sensor (FreeStyle #6 ea 01/28/24 01/28/24 Rx Raegan 3 Sensor device) cephalexin 500 mg capsule 500 mg PO QID 7 days #28 caps 01/28/24 02/05/24 Rx furosemide 20 mg tablet 20 mg PO DAILY #30 tabs 01/28/24 01/28/24 Rx insulin lispro 100 unit/mL 1 sliding scale dose subcut 01/28/24 02/05/24 Rx subcutaneous pen USEASDIRECTD #15 mL pantoprazole 40 mg tablet,delayed 40 mg PO DAILY #90 tabs 01/28/24 02/05/24 Rx release lisinopril 5 mg tablet 5 mg PO DAILY 02/05/24 02/05/24 History Past Med/Surg History Problem List (Updated 02/05/24 @ 16:37 by Leena Kimble DO) Acute UTI (urinary tract infection) (Acute) Bilateral leg pain (Acute) NATALY (acute kidney injury) (Acute) Hyperbilirubinemia (Acute) Thrombocytopenia (Acute) Bilateral edema of lower extremity (Acute) Fall against object Alcoholic hepatitis Bone marrow depression Alcohol withdrawal syndrome Coagulopathy Elevated lipase Alcoholic cirrhosis of liver with ascites Acute pancreatitis (Acute) Hypomagnesemia (Acute) NATALY (acute kidney injury) (Acute) Hyperbilirubinemia (Acute) Olecranon bursitis, left elbow Insulin dependent type 2 diabetes mellitus Thrombocytopenia (Acute) UGIB (upper gastrointestinal bleed) (Acute) Anemia (Acute) Type 2 diabetes mellitus History of atrial fibrillation GERD (gastroesophageal reflux disease) Esophageal dysphagia Primary hypogonadism in male Erectile dysfunction Obesity (BMI 30-39.9) Metabolic syndrome Hyperlipidemia Elevated ferritin Elevated liver function tests Hypothyroid Low testosterone in male Insomnia (Chronic) Hypertension (Chronic) Congestive heart failure (CHF) (Chronic) HX OF Alcoholic cardiomyopathy (Chronic) Admitted 04/2018 for ETOH withdrawal, acute pancreatitis, non-ischmeic CM with EF 15-20%- LifeVest monitoring 07/07/18 showed a fib with RVR with tachycardia-induced tachycardia. Repeat ECHO in 07/2018 shows EF of 32%>NOW PT STATES EF IS "NORMAL" 60/NO CARDS Medical History (Updated 02/05/24 @ 16:37 by Leena Kimble, ) Acute heart failure with mildly reduced ejection fraction (HFmrEF, 41-49%) Alcohol intoxication Borderline diabetic History of kidney stones Infected pacemaker Pacer removed August 201805/22 infected wires History of urinary tract infection Surgical History [place] teeth removed S/P debridement (05/30/19) Left Chest Wound Debridement Dr. Pratt 05/30/19 Hx of hernia repair Hx of cystoscopy x2 History of cardiac cath ismael - 2019/NO STENTS Family History Father Alcohol abuse Heart disease Cardiac disorder Myocardial infarction, Onset Age: 60 Brother Cancer Mother Stroke Other No family history of adverse response to anesthesia Denies family history of Colon cancer Ovarian cancer Prostate cancer Breast cancer Social History Smoking Status: Never smoker Second Hand Exposure: No; Do You Dip or Chew Tobacco: No; Hx Alcohol Use: Yes Alcohol type: other Alcohol Intake Frequency: 4 or More x per/Week Hx Substance Use: No Preferred Language: Lithuanian Communication Ability: Effective Visual Impairment: No Limitations Hearing Ability: Normal Director Of Integrated Marketing Required: No Beliefs That Will Affect Care: None marital status: Current Living Situation: Spouse current occupational status: employed How many Children do You have: 2 Feels Safe at Home: Yes Childhood Exposure to Second-Hand Smoke: Yes Diet: regular Diet Comment: regular caffeine: Yes during the past year weight has: remained stable Dental Care, Regularly: No Physical Activity Frequency: 3-4 Times per Week Seatbelt Use: always Sunscreen Use: No Assistive Devices: None Physical Exam 2 Constitutional: WD/WN, vitals as above Eyes: scleral icterus Respiratory: normal respiratory effort, lungs clear to auscultation Cardiovascular: tachycardic, 3+ lower extremity pitting edema. Petechiae on b/l anterior thighs. No murmur Gastrointestinal (Abdomen): +BS, + abdominal distention. +fluid wave present. Skin: jaundiced Neurologic: negative asterixis Psychiatric: A+Ox3, euthymic affect Results & Data Results & Data Vital Signs (Past 12 Hours) Vital Signs Temp Pulse Pulse Resp BP BP Pulse Ox 02/05/24 16:42 117 H 15 97 02/05/24 16:39 118 H 20 96 02/05/24 16:25 101/82 02/05/24 16:15 123 H 13 97 02/05/24 16:10 121 H 24 130/81 97 02/05/24 16:10 122 H 24 97 02/05/24 16:10 97 02/05/24 16:09 130/81 02/05/24 16:06 122 H 12 98 02/05/24 16:00 121 H 15 97 02/05/24 15:57 124 H 19 96 02/05/24 15:38 120 H 02/05/24 14:45 36.6 C 117 H 18 116/69 98 O2 Del Method 02/05/24 16:42 02/05/24 16:39 02/05/24 16:25 02/05/24 16:15 02/05/24 16:10 Room Air 02/05/24 16:10 Room Air 02/05/24 16:10 Room Air 02/05/24 16:09 02/05/24 16:06 02/05/24 16:00 02/05/24 15:57 02/05/24 15:38 02/05/24 14:45 Room Air Laboratory Results 02/05/24 15:28 02/05/24 15:28 PG Care Time/CCT Total # of Minutes Spent Total Time Spent with Patient: Total time spent is greater than 50% in coordination of care (as documented) at patient's floor/unit and/or counseling patient: Coding Level of Care Code 59934 INT INP/OBS CARE 3/75MIN Diagnoses Alcoholic cirrhosis of liver with ascites K70.31 NATALY (acute kidney injury) N17.9 Insulin dependent type 2 diabetes mellitus E11.9; Z79.4 Acute UTI (urinary tract infection) N39.0
[2024-02-05] MEDS: FUROSEMIDE 40 MG/4 ML VIAL IV ONE (18:52)
[2024-02-05] MEDS ORDERED: STAT IV Infusion **Titration per Protocol STA ×3 (19:09→21:57)
[2024-02-05] MEDS ORDERED: 0.2 MICRON FILTER SET 1 EACH IV STA (19:10)
[2024-02-05] MEDS ORDERED: AMIODARONE IV BOLUS & DRIP IV STA (19:10)
[2024-02-05] MEDS: NOREPINEPHRINE/D5W 4 MG/250 ML IV ONE (19:12)
[2024-02-05] MEDS: NOREPINEPHRINE/D5W 4 MG/250 ML PLCT IV SCH (19:12)
[2024-02-05] MEDS: AMIODARONE / D5W 150 MG/100 ML BAG IV STA (19:24)
[2024-02-05 19:49] LABS: Base Excess VBG -2.5 mEq/L; HCO3 VBG 23 mmol/L; Oxygen Saturation VBG < 60.0 %; PCO2 VBG 39 mmHg (38-50); PO2 VBG 38 mmHg; pH VBG 7.37 (7.36-7.41)
--- NOTE | 2024-02-05 20:50 | Critical Care Consultation ---
Date of Consultation February 05, 2024 Assessment & Plan (1) Alcoholic hepatitis: Patient is a 54-year-old male with alcoholic cirrhosis with ascites, portal hypertension with varices, alcoholic cardiomyopathy, DM type II, HLD, hypothyroidism, HTN who presented to the emergency department earlier this sergey jorge with increased abdominal swelling and lower extremity edema. He was found to have NATALY with decompensated liver function and metabolic acidosis. Patient states that his last drink was 3 weeks ago prior to his most recent admission for which she was discharged a week ago. Cardiology was also contacted for recommendations regarding patient's A-fib RVR in which he became hypotensive and was started on vasopressor support. They recommended digoxin, as patient has multiple comorbidities and would be difficult to manage. He has had 3 episodes of A-fib as well, which is nonsustained and last only a couple of minutes, and unable to cardiovert. Given multiple core morbidities and decompensated liver failure with MELD score of 37, I did speak with single resource boss Dr. Vickers who was director investor relations. He did feel that the patient would likely be better suited at a tertiary center with hepatology services. Following that conversation I did speak with forensic accountant at [facility], Dr. Ontiveros, who has accepted the patient for transfer. Patient has already been admitted to the hospital from the ER and was initially going to PCU prior to being placed on vasopressors. We will now divert to ICU for further management pending his transfer. (2) NATALY (acute kidney injury): Suspect this is likely hepatorenal syndrome with decompensated liver function. On exam he is volume overloaded with anasarca and ascites. Will continue with vasopressor support to maintain MAP greater than 70. Falcon inserted for strict I's and O's and he currently appears to be oliguric. Will hold on diuresis for now given hypotension. Avoid nephrotoxins and renally adjust medications (3) Alcoholic cirrhosis of liver with ascites: As noted above (4) Type 2 diabetes mellitus: Continue with sliding scale/basal bolus. ICU hyperglycemic protocol (5) GERD (gastroesophageal reflux disease): Continue PPI (6) Alcoholic cardiomyopathy: Last EF improved with ejection fraction of 55%. Feel that volume overload/edema most likely related to decompensated liver failure. No need to repeat TTE as patient will likely transfer, could reconsider transfer delayed. Monitor for now (7) Atrial fibrillation with RVR: Cardiology consulted and is management complicated due to liver failure, renal failure, and cardiomyopathy. Patient continues to have short episodes lasting about 2 minutes of A-fib RVR with heart rate in the 180s in which He becomes hypotensive. He is now on Levophed drip. He does appear to have history of atrial fibrillation, and is not anticoagulated. Would expect this is due to known varices. Cardiology recommended digoxin, however he appears to be stable at this time. Will continue to monitor with continuous telemetry for now as he is currently sinus tachycardia on the monitor on arrival to the ICU. No significant electrolyte abnormalities. Plan CRITICAL CARE TIME I have personally spent 50 minutes of critical care time in the direct management of this patient. This is a life/limb threatening event. This includes time spent evaluating patient, direct bedside care, chart review, placing orders, interpretation of diagnostic studies, discussion with consultants, patient, and family members, as well as other required patient management activities. This time is exclusive of all separately billable procedures, and teaching time and separate from and in addition to any other critical care service time. History of Present Illness Attending Physician: Jose Carlos Greer MD History of Present Illness Patient is a 54-year-old male with past medical history significant for alcoholic cirrhosis with ascites, portal hypertension, Nonischemic cardiomy opathy, varices, DM type II, GERD, HTN, hypothyroidism, who presented to the emergency department earlier this evening with complaints of increased abdominal swelling and lower extremity swelling with pain to the lower extremities. He was noted to have +4 edema to the lower extremities with concern for cellulitis. Lab work revealed decompensated liver failure with a bilirubin of 17 and meld of 37, and acute renal failure with presumed hepatorenal syndrome, And high anion gap metabolic acidosis with lactate of 9. I was contacted by admitting service as patient had had episodes of A-fib RVR wi th heart rate in the 180s on 3 occasions in the ER where he became hypotensive, and he had been started on Levophed. Cardiology was consulted due to patient's multiple comorbidities and difficulty with management and recommended digoxin as needed. Considering patient's comorbidities and advanced liver disease I did speak with Data Assistant Dr. Vickers who thought patient would better be suited with hepatology services. I spoke with hepatology at [facility] who has accepted the patient for transfer. Will manage in ICU pending transfer for now. Allergies Allergy/AdvReac Type Severity Reaction Status Date / Time No Known Allergies Allergy Verified 02/05/24 16:47 Home Medications Medication Instructions Recorded Confirmed Type lancets 33 gauge (AlliTouch Delica #100 ea 08/12/23 01/28/24 Rx Plus Lancet) pen needle, diabetic 32 gauge x #1,200 ea 08/12/23 01/28/24 Rx 5/32" blood-glucose meter,continuous #1 ea 10/12/23 01/28/24 Rx (FreeStyle Raegan 3 Cresco) blood-glucose sensor (FreeStyle #2 ea 10/12/23 01/28/24 Rx Raegan 3 Sensor device) gabapentin 300 mg capsule 300 mg PO HS PRN Other 10/12/23 01/28/24 History gabapentin 100 mg capsule 100 mg PO HS #30 caps 12/15/23 02/05/24 Rx levothyroxine 137 mcg tablet 137 mcg PO QAM #30 tabs 12/15/23 02/05/24 Rx blood sugar diagnostic (OneTouch #100 ea 01/07/24 01/28/24 Rx Verio test strips) empagliflozin 10 mg tablet 10 mg PO DAILY #90 tabs 01/07/24 02/05/24 Rx (Jardiance) folic acid 1 mg tablet 1 mg PO DAILY #30 tabs 01/19/24 01/28/24 Rx magnesium oxide 400 mg (241.3 mg 800 mg (2 x 400 mg (241.3 mg 01/19/24 02/05/24 Rx magnesium) tablet magnesium)) PO BID #30 tabs metoprolol succinate 25 mg 25 mg PO QAM #30 tabs 01/19/24 01/28/24 Rx tablet,extended release 24 hr multivitamin with folic acid 400 1 tab PO QAM #30 tabs 01/19/24 02/05/24 Rx mcg tablet (Daily-Amaury (with folic acid)) prednisone 20 mg tablet 40 mg (2 x 20 mg) PO DAILY #46 tabs 01/19/24 02/05/24 Rx thiamine HCl (vitamin B1) 100 mg 100 mg PO DAILY #30 tabs 01/19/24 02/05/24 Rx tablet blood sugar diagnostic (FreeStyle #50 ea 01/28/24 01/28/24 Rx Test strips) blood-glucose sensor (FreeStyle #6 ea 01/28/24 01/28/24 Rx Raegan 3 Sensor device) cephalexin 500 mg capsule 500 mg PO QID 7 days #28 caps 01/28/24 02/05/24 Rx furosemide 20 mg tablet 20 mg PO DAILY #30 tabs 01/28/24 01/28/24 Rx insulin lispro 100 unit/mL 1 sliding scale dose subcut 01/28/24 02/05/24 Rx subcutaneous pen USEASDIRECTD #15 mL pantoprazole 40 mg tablet,delayed 40 mg PO DAILY #90 tabs 01/28/24 02/05/24 Rx release lisinopril 5 mg tablet 5 mg PO DAILY 02/05/24 02/05/24 History Patient History Medical History (Updated 02/05/24 @ 20:49 by BEHZAD Delgadillo) Acute heart failure with mildly reduced ejection fraction (HFmrEF, 41-49%) Alcohol intoxication Borderline diabetic History of kidney stones Infected pacemaker Pacer removed August 201805/22 infected wires History of urinary tract infection Surgical History [place] teeth removed S/P debridement (05/30/19) Left Chest Wound Debridement Dr. Pratt 05/30/19 Hx of hernia repair Hx of cystoscopy x2 History of cardiac cath ismael - 2019/NO STENTS Family History Father Alcohol abuse Heart disease Cardiac disorder Myocardial infarction, Onset Age: 60 Brother Cancer Mother Stroke Other No family history of adverse response to anesthesia Denies family history of Colon cancer Ovarian cancer Prostate cancer Breast cancer Social History Smoking Status: Never smoker Second Hand Exposure: No; Do You Dip or Chew Tobacco: No; Hx Alcohol Use: Yes Alcohol type: other Alcohol Intake Frequency: 4 or More x per/Week Hx Substance Use: No Preferred Language: Malay Communication Ability: Effective Visual Impairment: No Limitations Hearing Ability: Normal Direct Care Supervisor Required: No Beliefs That Will Affect Care: None marital status: Current Living Situation: Spouse current occupational status: employed How many Children do You have: 2 Feels Safe at Home: Yes Childhood Exposure to Second-Hand Smoke: Yes Diet: regular Diet Comment: regular caffeine: Yes during the past year weight has: remained stable Dental Care, Regularly: No Physical Activity Frequency: 3-4 Times per Week Seatbelt Use: always Sunscreen Use: No Assistive Devices: None Review of Systems Review of Systems: Patient complains of increased abdominal swelling over the past few days and increased lower extremity swelling with tenderness around the ankles bilaterally. He denies headache, dizziness, changes in vision, syncopal events, recent illness or fevers, sore throat, cough or congestion, chest pain or palpitations, abdominal pain, nausea vomiting or diarrhea, changes in gait. He does report occasional shortness of breath with activity. Physical Exam Constitutional: + ill appearing; no acute distress Eyes: PERRL, conjunctivae normal, anicteric sclerae ENMT: external ear and nose normal, oropharynx normal Neck: trachea midline, no thyromegaly Respiratory: normal respiratory effort, lungs clear to auscultation Cardiovascular: Rate/Rhythm: regular rhythm and + tachycardic Heart Sounds: normal S1 and normal S2; no murmur Gastrointestinal (Abdomen): Abdomen distended, semifirm, with right upper quadrant tenderness with deep palpation. Bowel sounds hypoactive. Musculoskeletal: no cyanosis or clubbing, extremities motor strength 5/5 Skin: Jaundice with erythema to the lower extremities bilaterally Neurologic: PERRL, EOMI, accommodation nl, no face palsy, no dysarthria Psychiatric: A+Ox3, euthymic affect Results & Data Results & Data Vital Signs (Past 12 Hours) Vital Signs Temp Pulse Pulse Resp BP BP Pulse Ox 02/05/24 20:05 88/43 L 02/05/24 20:00 178 H 15 78/57 L 97 02/05/24 19:55 112/88 02/05/24 19:54 165 H 21 96 02/05/24 19:51 126 H 17 89/68 L 96 02/05/24 19:45 105/73 02/05/24 19:45 105/73 02/05/24 19:42 127 H 14 96 02/05/24 19:40 116/80 02/05/24 19:40 116/80 02/05/24 19:39 122 H 12 95 02/05/24 19:36 106/78 02/05/24 19:36 106/78 02/05/24 19:26 120/77 02/05/24 19:24 96/73 L 02/05/24 19:22 113/85 02/05/24 19:21 123 H 16 96 02/05/24 19:20 112/72 02/05/24 19:20 112/72 02/05/24 19:15 77/61 L 02/05/24 19:12 186 H 17 96 02/05/24 19:11 106/31 L 02/05/24 19:11 106/31 L 02/05/24 19:06 165 H 17 97 02/05/24 19:06 99/75 L 02/05/24 19:06 88/65 L 02/05/24 19:04 160 H 02/05/24 19:03 179 H 16 97 02/05/24 19:00 85/57 L 02/05/24 19:00 85/57 L 02/05/24 19:00 85/57 L 02/05/24 19:00 85/57 L 02/05/24 18:54 121 H 14 96 02/05/24 18:51 94/63 L 02/05/24 18:51 94/63 L 02/05/24 18:51 94/63 L 02/05/24 18:51 128 H 16 94/63 L 95 02/05/24 18:47 86/69 L 02/05/24 18:47 86/69 L 02/05/24 18:43 85/63 L 02/05/24 18:36 102/80 02/05/24 18:36 102/80 02/05/24 18:30 82/66 L 02/05/24 18:27 124 H 13 95 02/05/24 18:21 129 H 18 96 02/05/24 18:15 125 H 18 96 02/05/24 18:06 127 H 16 96 02/05/24 18:03 125 H 13 97 02/05/24 18:00 111/70 02/05/24 18:00 111/70 02/05/24 18:00 111/70 02/05/24 17:54 128 H 15 98 02/05/24 17:49 135/90 02/05/24 17:49 128 H 18 135/90 99 02/05/24 17:39 125 H 13 98 02/05/24 17:36 170 H 13 97 02/05/24 17:21 123 H 18 02/05/24 17:03 120 H 98 02/05/24 17:00 134/79 02/05/24 17:00 134/79 02/05/24 17:00 134/79 02/05/24 17:00 134/79 02/05/24 16:42 117 H 15 97 02/05/24 16:39 118 H 20 96 02/05/24 16:25 101/82 02/05/24 16:15 123 H 13 97 02/05/24 16:10 121 H 24 130/81 97 02/05/24 16:10 122 H 24 97 02/05/24 16:10 97 02/05/24 16:09 130/81 02/05/24 16:06 122 H 12 98 02/05/24 16:00 121 H 15 97 02/05/24 15:57 124 H 19 96 02/05/24 15:38 120 H 02/05/24 14:45 36.6 C 117 H 18 116/69 98 O2 Del Method 02/05/24 20:05 02/05/24 20:00 Room Air 02/05/24 19:55 02/05/24 19:54 02/05/24 19:51 02/05/24 19:45 02/05/24 19:45 02/05/24 19:42 02/05/24 19:40 02/05/24 19:40 02/05/24 19:39 02/05/24 19:36 02/05/24 19:36 02/05/24 19:26 02/05/24 19:24 02/05/24 19:22 02/05/24 19:21 02/05/24 19:20 02/05/24 19:20 02/05/24 19:15 02/05/24 19:12 02/05/24 19:11 02/05/24 19:11 02/05/24 19:06 02/05/24 19:06 02/05/24 19:06 02/05/24 19:04 02/05/24 19:03 02/05/24 19:00 02/05/24 19:00 02/05/24 19:00 02/05/24 19:00 02/05/24 18:54 02/05/24 18:51 02/05/24 18:51 02/05/24 18:51 02/05/24 18:51 Room Air 02/05/24 18:47 02/05/24 18:47 02/05/24 18:43 02/05/24 18:36 02/05/24 18:36 02/05/24 18:30 02/05/24 18:27 02/05/24 18:21 02/05/24 18:15 02/05/24 18:06 02/05/24 18:03 02/05/24 18:00 02/05/24 18:00 02/05/24 18:00 02/05/24 17:54 02/05/24 17:49 02/05/24 17:49 Room Air 02/05/24 17:39 02/05/24 17:36 02/05/24 17:21 02/05/24 17:03 02/05/24 17:00 02/05/24 17:00 02/05/24 17:00 02/05/24 17:00 02/05/24 16:42 02/05/24 16:39 02/05/24 16:25 02/05/24 16:15 02/05/24 16:10 Room Air 02/05/24 16:10 Room Air 02/05/24 16:10 Room Air 02/05/24 16:09 02/05/24 16:06 02/05/24 16:00 02/05/24 15:57 02/05/24 15:38 02/05/24 14:45 Room Air Coding Level of Care Code 66426 CRITICAL CARE 1ST 30-74M Diagnoses Alcoholic hepatitis K70.10 NATALY (acute kidney injury) N17.9 Alcoholic cirrhosis of liver with ascites K70.31 Type 2 diabetes mellitus E11.9 GERD (gastroesophageal reflux disease) K21.9 Alcoholic cardiomyopathy I42.6 Atrial fibrillation with RVR I48.91
[2024-02-05] MEDS: ALBUMIN 25% 25 GM/100 ML VIAL IV SCH (21:09)
[2024-02-05] MEDS ORDERED: GLUCOSE 10 TAB/TUBE PO PRN (21:15)
[2024-02-05] MEDS ORDERED: DEXTROSE 50% 50 ML SYRINGE IV PRN (21:15)
[2024-02-05] MEDS ORDERED: GLUCAGON FOR INJ 1 MG VIAL SQ PRN (21:15)
[2024-02-05] MEDS ORDERED: CARBOHYDRATES FOR HYPOGLYCEMIA PO PRN (21:15)
[2024-02-05] MEDS ORDERED: GLUCOSE 40% GEL 15 GM TUBE PO PRN (21:15)
[2024-02-05 21:16] VITALS: TEMP 98.6
[2024-02-05] MEDS: AMIODARONE / D5W 360 MG/200 ML BAG IV ONE (21:53)
[2024-02-05] MEDS: PHENYLEPHRINE/NSS 25 MG/250 ML BAG IV SCH (22:06)
[2024-02-05] MEDS: DIGOXIN 250 MCG in SYRINGE 9 ML IV STA (22:12)
[2024-02-05 23:27] VITALS: RESP 19; O2SAT 95
[2024-02-05 23:38] VITALS: BP 118/71; PULSE 125
[2024-02-06] MEDS ORDERED: AMIODARONE / D5W 360 MG/200 ML BAG IV SCH (01:15)
[2024-02-06] MEDS ORDERED: LEVOTHYROXINE SODIUM 137 MCG TABLET PO SCH (06:30)
[2024-02-06] MEDS ORDERED: FOLIC ACID 1 MG TAB PO SCH (09:00)
[2024-02-06] MEDS ORDERED: THIAMINE HCL 100 MG TAB PO SCH (09:00)
[2024-02-06] MEDS ORDERED: EMPAGLIFLOZIN 10 MG TAB PO SCH (09:00)
[2024-02-06] MEDS ORDERED: PANTOprazole 40 MG TAB PO SCH (09:00)
[2024-02-06] MEDS ORDERED: cefTRIAXone SODIUM 2,000 MG/50 ML BAG IV SCH (18:00)
[2024-02-06] MEDS ORDERED: INSULIN ASPART PER UNIT CHARGE SQ SCH (21:30)
== END 2024-02-05 23:20 | disposition short-term general hospital (02) | DRG 433 ==
LOC: SUATTDRO → ED 14:41 → 1E 17:41
DX: K70.31 Alcoholic cirrhosis of liver with ascites; F10.20 Alcohol dependence, uncomplicated; I50.22 Chronic systolic (congestive) heart failure; Z79.890 Hormone replacement therapy; K70.10 Alcoholic hepatitis without ascites; N39.0 Urinary tract infection, site not specified; Z68.30 Body mass index [BMI] 30.0-30.9, adult; I11.0 Hypertensive heart disease with heart failure; K86.0 Alcohol-induced chronic pancreatitis; E66.9 Obesity, unspecified; E03.9 Hypothyroidism, unspecified; E11.9 Type 2 diabetes mellitus without complications; I48.91 Unspecified atrial fibrillation; N17.9 Acute kidney failure, unspecified; Z79.52 Long term (current) use of systemic steroids; K21.9 Gastro-esophageal reflux disease without esophagitis; I42.6 Alcoholic cardiomyopathy; E83.42 Hypomagnesemia; E87.20 Acidosis, unspecified; Z79.899 Other long term (current) drug therapy; Z79.4 Long term (current) use of insulin